=== PATIENT | female | born 1995 | race Caucasian/White ===

== ENCOUNTER 2021-09-13 07:17 | Inpatient (IN) ==
--- NOTE | 2021-09-12 14:34 | Anesthesiology Consultation ---
Date of Service September 12, 2021 Assessment & Plan (1) Encounter for pre-operative examination: - COVID screening: Per senior software architect on 09/12/2021: Travel screen negative, no known COVID-19 positive contacts or current COVID-19 related symptoms in past 2 weeks. Surgeon arranging preop COVID testing, scheduled 09/11/2021 [facility] waiting results. Will attempt to obtain 08/06/2021 positive COVID test for records. Chart Review Chart Review: order entry administrator initiated History Surgery Operation Date: 09/13/21 09:10 Proposed Procedures p Section in LD - Lary Gudino MD, PhD Height/Weight Height: 5 ft 2 in Weight: 69.4 kg Allergies Allergy/AdvReac Type Severity Reaction Status Date / Time No Known Allergies Allergy Verified 09/12/21 10:31 Medications Home Medications Medication Instructions Recorded Confirmed Last Taken iron,carbonyl 65 mg-vitamin C 125 1 tab PO HS 09/12/21 09/12/21 Unknown mg tablet,delayed release (Vitron-C) vits no.124-ferrous fum 1 tab PO HS 09/12/21 09/12/21 Unknown 27 mg iron-folic acid 800 mcg tablet ( Vitamin) Past Medical History Medical History (Updated 09/12/21 @ 14:33 by Mey Shell PA-C) Depression History of COVID-19 08/06/2021 @ [facility] in [place]--sinus congestion/fatigue--no issues now Scoliosis Past Family History Family History Other No family history of adverse response to anesthesia Past Surgical History Surgical History History of ear surgery reconstruction done on both ears History of ear surgery left on eardrum History of placement of ear tubes x2 History of tonsillectomy and adenoidectomy History of wisdom tooth extraction Social History Smoking Status: Never smoker Do You Dip or Chew Tobacco: No Alcohol Intake Frequency Comment: prior to drank only on special occasions Hx Substance Use: No substance use type: does not use Testing Laboratory Results 09/11/2021 [facility] WBC: 8.49 H/H: 12.8/37.6 PLATELETS: 163 ABO B Rh positive RBC Ab screen negative
[~2021-09-13 07:17] MED LIST: ceFAZolin 2000MG 2,000 MG/15 ML SYR IV SCH
[2021-09-13] MEDS ORDERED: LACTATED RINGER'S 1,000 ML IV SCH ×2 (08:00→10:45)
[2021-09-13 08:10] LABS: Hematocrit (blood only) 37.8 % (37-47); Mean Corpuscular Hemoglobin 33.9 pg (25-34); Mean Corpuscular Hgb Conc 34.4 g/dL (32-36); Mean Corpuscular Volume 98.4 fL (80-100); Mean Platelet Volume 10.3 fL (7.4-10.4); Platelet Count 178 K/uL (130-400); RDW Coefficient of Variation 13.6 % (11.5-14.5); RDW Standard Deviation 48.7 fL (36.4-46.3); Red Blood Count 3.84 M/uL (4.2-5.4); White Blood Count 9.66 K/uL (4.8-10.8)
[2021-09-13] MEDS ORDERED: HYDROmorphone INJ 0.5 MG/0.5 ML SYR IV PRN (09:04)
[2021-09-13] MEDS ORDERED: LACTATED RINGER'S 500 ML IV PRN (09:04)
[2021-09-13] MEDS ORDERED: NALOXONE HCL 0.4 MG/1 ML VIAL/CARP IV PRN (09:04)
[2021-09-13] MEDS ORDERED: diphenhydrAMINE 50 MG/ML VIAL IV PRN (09:04)
[2021-09-13] MEDS ORDERED: ePHEDrine sulfate 50 MG/ML AMP IV PRN (09:04)
[2021-09-13] MEDS ORDERED: NALOXONE HCL 0.08 MG in SYRINGE 1.8 ML IV PRN (09:04)
[2021-09-13] MEDS ORDERED: NALBUPHINE HCL INJ 10 MG/ML AMP IV PRN (09:04)
[2021-09-13] MEDS ORDERED: ONDANSETRON INJ 2 MG/ML 2 ML VIAL IV PRN (09:04)
[2021-09-13] MEDS ORDERED: MoRPHine SULFATE PF 1 MG/ML 10 ML AMP/VIAL INT SPINAL ONE (09:04)
[2021-09-13] MEDS ORDERED: NALOXONE HCL 1 MG in SODIUM CHLORIDE 0.9% 1000ML 1,000 ML IV PRN (09:04)
--- NOTE | 2021-09-13 09:07 | History & Physical Bridge Note ---
Date of Service September 13, 2021 History & Physical Bridge Note I have examined the patient, reviewed the History & Physical and in the interval since the performance of the History & Physical I have noted the following changes of clinical significance: no changes noted FHT: cat 1 US:footling breech Proceed with 1LTCS
[2021-09-13] MEDS ORDERED: DC INTRASPINAL MORPHINE SCH (09:15)
[2021-09-13] MEDS ORDERED: SODIUM CHLORIDE 0.9% 1000ML 1,000 ML IV SCH (09:15)
[2021-09-13] MEDS ORDERED: NO NARCOTICS OR SEDATIVES SCH (09:15)
[2021-09-13] MEDS ORDERED: CITRIC ACID/SODIUM CITRATE 15 ML UDC ONE (09:19)
[2021-09-13] MEDS ORDERED: AMMONIA, AROMATIC INHAL 1 EA AMP INH ONE (09:19)
[2021-09-13] MEDS ORDERED: MoRPHine SULFATE PF 1 MG/ML 10 ML AMP/VIAL ONE (09:21)
[2021-09-13] MEDS ORDERED: fentaNYL citrate 100 MCG/2 ML VIAL ONE (09:21)
--- NOTE | 2021-09-13 09:35 | Discharge Summary ---
Date of Service September 13, 2021 Admission HPI Per Admitting Provider 26 year old at 39 3/7 Breech presentation Antepartum anemia History of depression Admission Exam (Per Admitting) Constitutional WD/WN, vitals as above Respiratory normal respiratory effort, lungs clear to auscultation Cardiovascular RRR, no murmur, no edema Gastrointestinal (Abdomen) normal bowel sounds, soft, nontender, no hepatosplenomegaly Discharge Data Consultations 09/13/21 07:47 Consult Anesthesiology Stat Procedures Performed Operation Date: 09/13/21 09:10 <No data on this case meets the specified criteria> Hospital Course (1) Postop check: Countine routine PP care Anticipate d/c home later today or tomorrow
[2021-09-13] MEDS ORDERED: ONDANSETRON INJ 2 MG/ML 2 ML VIAL ONE (09:51)
[2021-09-13] MEDS ORDERED: OXYTOCIN 10 UNITS/ML 10ML VIAL ONE ×2 (10:04→10:19)
[2021-09-13] MEDS ORDERED: PHENYLEPHRINE 100MCG/ML 5ML SYR ONE (10:07)
[2021-09-13] MEDS ORDERED: BENZOCAINE 20% AER SPR 82.5 GM CAN EXT PRN (10:41)
[2021-09-13] MEDS ORDERED: SUPERCREAM 0.870% 15 GM JAR EXT PRN (10:41)
[2021-09-13] MEDS ORDERED: SENNA 8.6 MG TAB PO PRN (10:41)
[2021-09-13] MEDS ORDERED: HYDROCORTISONE ACETATE 25 MG SUPP PR PRN (10:41)
[2021-09-13] MEDS ORDERED: MAGNESIUM HYDROXIDE SUSP 30 ML UDC PO PRN (10:41)
[2021-09-13] MEDS ORDERED: DIPHTHERIA/TETANUS/PERTUSSIS 0.5 ML SYR/VIAL IM ONE (10:41)
--- NOTE | 2021-09-13 10:41 | Post Operative Brief Note ---
Immediate Post Op Note v1 Date of Surgery September 13, 2021 Pre & Post Diagnosis Operation Date: 09/13/21 09:10 Pre-Op Diagnosis: Breech Presentation Post-Op Diagnosis: Same as above. I identified the patient and participated in the time-out.: Yes Procedure Operation Date: 09/13/21 09:10 Actual Procedures p Section in LD delivery of live male child at 1016, lower uterine transverse incision(Bilateral) - Lary Gudino MD, PhD Surgeon Lary Gudino MD, PhD Chief Payroll Clerk Caridad Harmon MD Estimated Blood Loss 700 Findings Consistent with Post-Op Diagnosis Liveborn male at 1016, breech. Normal uterus, Fallopian tubes and ovaries Fluids 1000mls Drains Sen Catheter (draining clear yellow urine during surgery) Complications None Disposition Accompanied Patient To Recovery: Yes
--- NOTE | 2021-09-13 11:14 | Operative Report ---
Post Operative Report Pre & Post Diagnosis Operation Date: 09/13/21 09:10 Pre-Op Diagnosis: 1. 26 year old at 39 3/7 week 2. Breech presentation 3. Antepartum anemia 4. History of depression Post-Op Diagnosis: Same as above. 5. Moderate meconium I identified the patient and participated in the time-out.: Yes Procedure Operation Date: 09/13/21 09:10 Actual Procedures p Section in LD delivery of live male child at 1016, lower uterine transverse incision(Bilateral) - Lary Gudino MD, PhD Surgeon Lary Gudino MD, PhD Spray Foam Installer Caridad Harmon MD Estimated Blood Loss 700 Findings Consistent with Post-Op Diagnosis Liveborn male in footling breech presentation delivered at 10:16 AM, with Apgars 8/9. Weight 333 3 g or 7 pounds 6 ounces. Intact placenta with three-vessel cord. Cord pH not obtained. Normal-appearing uterus, normal-appearing bilateral fallopian tubes and ovaries seen at time of surgery Fluids 1000 mls Specimens Placenta sent to pathology for hold Drains Sen catheter Anesthesia Type Spinal Complications none Disposition Accompanied Patient To Recovery: Yes Indications Breech presentation at term Description of Procedure Delivery Note History synopsis: Patient is a 26-year-old at 39 weeks and 3 days who presented to labor and delivery for a at term for breech presentation. Upon presentation she denies contractions, leaking of fluid or vaginal bleeding. Notes good movement. Denies headache, blurry vision, right upper quadrant epigastric pain. Otherwise feeling well. Repeat ultrasound on labor and delivery which showed fetus in footling breech presentation Procedure Summary: section was recommended. Risks, benefits and alternatives were discussed including but not limited to infection, bleeding that may require blood products or hysterectomy for life saving measures, injury to surrounding organs including but not limited to bowel, bladder, ureters, tubes and ovaries and/or the baby. Should injury occur it could require longer/additional surgery to repair. Patient was also counselled about risk of DVT/PE, and injury to infant during delivery. The patient stated understanding and desired to proceed. All questions were answered posed by patient. Prior to being taken to the OR, 2 grams of cefazolin IV was administered. The patient was taken to the operating room where regional anesthesia was found to be adequate. She was then prepared and draped in the usual sterile fashion in the dorsal supine position with a leftward tilt displacing the uterus. Sen was draining to gravity. SCDs were on bilateral lower extremities. A pfannenstiel skin incision was then made with the scalpel and carried through to the underlying layer of fascia. The fascia was incised in the midline and the incision extended laterally with the Marcelino scissors. The superior aspect of the facial incision was then grasped with the Irish clamps, elevated and the underlying rectus muscles dissected off bluntly. Attention was then turned to the inferior aspect of this incision which in a similar fashion was grasped, elevated with the Irish clamps and the rectus muscle dissected off bluntly. The rectus muscles were in the midline. The peritoneum identified, grasped with the pick-ups and entered sharply with the Metzenbaum scissors. The peritoneal incision was then extended superiorly and inferiorly with good visualization of the bladder. The bladder blade was inserted and the vesicouterine peritoneum was identified, grasped with the pick-ups, and entered sharply with Metzenbaum scissors. This incision was then extended laterally and the bladder flap created digitally and the bladder blade was reinserted. The lower uterine segment was identified and incised in a transverse fashion with the scalpel. The uterine incision was then extended bluntly laterally. A rtificial rupture of membranes demonstrated moderate meconium. The bladder blade was removed. The fetus was in breech presentation. extremities were located within the uterine cavity. The feet were extracted and the blue towel was wrapped around the legs and in a corkscrew fashion the sacrum was then delivered. Once the sacrum was delivered the body was delivered in systematic fashion and then each shoulder was delivered in a systematic fashion. In a Mauriceau-Smellie maneuver, the fingers were placed onto the infant's frenulum and the baby's head was gently removed from the uterine cavity with both mild fundal pressure and Mauriceau maneuver. The 's mouth and nose were bulb suctioned. The umbilical cord was clamped times two and cut. The infant was handed off to the awaiting pediatric staff. A male infant was delivered weighing 3333g with APGARS of 8 at 1 minute and 9 at 5 minutes. The infant was taken to the recovery room for transition. Cord blood gases were obtained. The placenta was removed with gentle traction. 30 units of oxytocin were added to IVF and allowed to run freely. The uterus was exteriorized and cleared of all clots and debris. The uterine incision was inspected and found to be without any extensions and was repaired with 0 Vicryl in a running, locked fashion. A second imbricating layer was performed. Upon inspection, the repaired hysterotomy was found to be hemostatic. The uterus was firm and returned to the abdomen. The gutters were cleared of all clots and debris. The peritoneum was grasped and closed with 2-0 Vicryl in a running fas hion. The fascia was reapproximated with 0 Vicryl in a running fashion. The subcutaneous layer was reapproximated with 2-0 Vicryl in interrupted fashion. The skin was closed in a subcuticular fashion with 4-0 Vicryl. Incision was covered with Dermabond. The patient tolerated the procedure well. Sponge, lap and needle counts were correct x4. The patient was taken to the recovery room in stable condition. I attest to the content of the Intraoperative Record and any orders documented therein. Any exceptions are noted below.
--- NOTE | 2021-09-13 11:29 | Anesthesiology Progress Note ---
Date of Service September 13, 2021 Anesthesia Post Procedure Vital Signs Vital Signs: Temp Pulse Resp BP Pulse Ox 09/13/21 11:25 74 96 09/13/21 11:20 75 97 09/13/21 11:19 18 09/13/21 11:15 78 96 09/13/21 11:13 68 176/69 H 09/13/21 11:10 81 96 09/13/21 11:09 36.5 C 18 09/13/21 11:05 82 96 09/13/21 11:04 73 104/55 L 09/13/21 11:00 75 98 09/13/21 10:59 16 09/13/21 10:55 85 96 09/13/21 10:50 66 95 09/13/21 10:49 71 108/60 09/13/21 09:38 109 H 96 09/13/21 09:33 74 95 09/13/21 09:28 89 96 09/13/21 09:23 80 96 09/13/21 09:18 93 H 97 09/13/21 09:13 91 H 98 09/13/21 09:08 96 H 98 09/13/21 08:17 36.8 C 18 09/13/21 08:11 71 110/64 Transfer of Care Handoff Completed per policy Notes Mental Status: alert / awake / arousable Patient Amnestic to Procedure: Yes Nausea / Vomiting: adequately controlled Pain: adequately controlled Airway Patency, RR, SpO2: stable & adequate BP & HR: stable & adequate Hydration State: stable & adequate Neuraxial Anesthesia: was administered and sensory block is resolving Anesthetic Complications: no major complications apparent and Pt Satisfied with anesthetic care
[2021-09-13] MEDS ORDERED: OXYTOCIN 20 UNITS in LACTATED RINGER'S 1,000 ML IV SCH (14:00)
[2021-09-13] MEDS: KETOROLAC 30 MG/ML VIAL IV PRN ×2 (15:06→20:34)
[2021-09-13] MEDS: SIMETHICONE 80 MG CHEW PO SCH ×3 (17:00→21:00)
[2021-09-13] MEDS: DOCUSATE SODIUM 100 MG CAP PO SCH (20:25)
[2021-09-14] MEDS ORDERED: diphenhydrAMINE 50 MG/ML VIAL IV PRN (03:07)
[2021-09-14] MEDS ORDERED: ONDANSETRON INJ 2 MG/ML 2 ML VIAL IV PRN (03:07)
[2021-09-14] MEDS ORDERED: PROMETHAZINE HCL 25 MG in SODIUM CHLORIDE 0.9% 50 ML IV PRN (03:07)
[2021-09-14] MEDS ORDERED: KETOROLAC 30 MG/ML VIAL IV PRN (03:07)
[2021-09-14] MEDS ORDERED: diphenhydrAMINE Capsule 25 MG CAP PO PRN (03:07)
[2021-09-14] MEDS: oxyCODONE/ACETAMINOPHEN 5mg/325mg TAB PO PRN ×5 (03:49→22:56)
[2021-09-14] MEDS: IBUPROFEN 600 MG TAB PO PRN ×5 (03:49→22:56)
[2021-09-14 06:59] LABS: Basophils # (auto) 0.02 K/uL (0-0.2); Basophils % (auto) 0.2 %; Eosinophils # (auto) 0.07 K/uL (0-0.5); Eosinophils % (auto) 0.7 %; Hematocrit (blood only) 34.7 % (37-47); Hemoglobin 11.7 g/dL (12.0-16.0); Immature Granulocytes # (auto) 0.01 K/uL (0.00-0.02); Immature Granulocytes % (auto) 0.1 %; Lymphocytes # (auto) 1.23 K/uL (1.2-3.4); Lymphocytes % (auto) 11.6 %; Mean Corpuscular Hemoglobin 33.3 pg (25-34); Mean Corpuscular Hgb Conc 33.7 g/dL (32-36); Mean Corpuscular Volume 98.9 fL (80-100); Monocytes # (auto) 0.82 K/uL (0.11-0.59); Monocytes % (auto) 7.7 %; Neutrophils # (auto) 8.44 K/uL (1.4-6.5); Neutrophils % (auto) 79.7 %; Platelet Count 162 K/uL (130-400); RDW Coefficient of Variation 13.7 % (11.5-14.5); RDW Standard Deviation 48.6 fL (36.4-46.3); Red Blood Count 3.51 M/uL (4.2-5.4); White Blood Count 10.59 K/uL (4.8-10.8)
[2021-09-14] MEDS: FERROUS SULFATE 325 MG TAB PO SCH (08:07)
[2021-09-14] MEDS: SIMETHICONE 80 MG CHEW PO SCH ×4 (08:07→22:56)
[2021-09-14] MEDS: DOCUSATE SODIUM 100 MG CAP PO SCH ×2 (08:07→22:56)
[2021-09-14] MEDS: PRENATAL VITAMIN 1 TAB PO SCH (08:07)
--- NOTE | 2021-09-14 09:53 | Obstetrical Progress Note ---
Date of Service September 14, 2021 Subjective Ambulation: ambulating normally Voiding: no voiding problems Passing Gas:: Yes Diet Tolerance:: regular diet Feeding Type:: breast feeding Current Pain Level(1-10): 0 doing well Physical Exam Constitutional WD/WN, vitals as above comfortable abdomen soft and non-tender incision c/d/i no edema neg Wesley's tent d/c in AM if stable Results & Data ([facility]) Vital Signs (Past 12 Hours) Vital Signs Temp Pulse Resp BP Pulse Ox 09/14/21 07:14 36.5 C 61 16 93/54 L 97 09/14/21 04:00 36.7 C 69 16 98/57 L 98 09/14/21 03:00 16 98 09/14/21 02:00 16 95 09/14/21 00:00 36.7 C 64 16 98/57 L 98 09/13/21 23:00 16 98 09/13/21 22:00 16 98 Laboratory Results 09/13/21 09/13/21 09/14/21 07:22 07:26 06:25 WBC 9.66 10.59 RBC 3.84 L 3.51 L Hgb 13.0 11.7 L Hct 37.8 34.7 L MCV 98.4 98.9 MCH 33.9 33.3 MCHC 34.4 33.7 RDW Std Deviation 48.7 H 48.6 H RDW Coeff of Jil 13.6 13.7 Plt Count 178 162 MPV 10.3 10.0 Immature Gran % (Auto) 0.1 Neut % (Auto) 79.7 Lymph % (Auto) 11.6 [place] % (Auto) 7.7 Eos % (Auto) 0.7 Baso % (Auto) 0.2 Neut # (Auto) 8.44 H Lymph # (Auto) 1.23 [place] # (Auto) 0.82 H Eos # (Auto) 0.07 Baso # (Auto) 0.02 Immature Gran # (Auto) 0.01 Blood Type B Positive Antibody Screen NEGATIVE
[2021-09-14] MEDS ORDERED: bisacodyL 5 MG TABEC PO SCH (20:00)
[2021-09-15 00:24] VITALS: O2SAT 98
--- NOTE | 2021-09-15 07:13 | Obstetrical Progress Note ---
Date of Service September 15, 2021 Assessment & Plan (1) Postop check: Countine routine PP care Anticipate d/c home later today or tomorrow Subjective Ambulation: ambulating normally Voiding: no voiding problems Passing Gas:: Yes Diet Tolerance:: regular diet Lochia:: Moderate Feeding Type:: breast feeding Current Pain Level(1-10): 5 Would like to go home later today or tomorrow depending on how she does today Physical Exam Constitutional WD/WN, vitals as above Respiratory normal respiratory effort, lungs clear to auscultation Cardiovascular RRR, no murmur, no edema Gastrointestinal (Abdomen) normal bowel sounds, soft, nontender, no hepatosplenomegaly incision clean dry intact and healing well Results & Data ([facility]) Vital Signs (Past 12 Hours) Vital Signs Temp Pulse Resp BP Pulse Ox 09/15/21 00:00 36.6 C 78 16 115/78 98 09/14/21 20:00 36.7 C 77 16 97/59 L 96
[2021-09-15] MEDS: oxyCODONE/ACETAMINOPHEN 5mg/325mg TAB PO PRN ×3 (07:25→16:54)
[2021-09-15] MEDS: IBUPROFEN 600 MG TAB PO PRN ×3 (07:25→16:54)
[2021-09-15 07:33] LABS: Hematocrit (blood only) 35.2 % (37-47); Hemoglobin 11.4 g/dL (12.0-16.0)
[2021-09-15 08:06] VITALS: BP 115/75; PULSE 73; TEMP 98.2
[2021-09-15] MEDS: PRENATAL VITAMIN 1 TAB PO SCH (08:15)
[2021-09-15] MEDS: DOCUSATE SODIUM 100 MG CAP PO SCH (08:15)
[2021-09-15] MEDS: FERROUS SULFATE 325 MG TAB PO SCH (08:15)
[2021-09-15] MEDS: SIMETHICONE 80 MG CHEW PO SCH ×3 (08:15→16:57)
[2021-09-15] MEDS ORDERED: bisacodyL 10 MG SUPP PR PRN (10:41)
== END 2021-09-15 18:36 | disposition home or self-care (01) | DRG 788 ==
LOC: 4S1 07:17 → EDSTATUS 09:10 → 4S2 14:00

== ENCOUNTER 2023-09-04 07:46 | Inpatient (IN) ==
--- OUTSIDE RECORDS SUMMARY | 2023-09-04 08:06 | External Medical Summary | Summary of Care ---
Author Name Unknown Organization [facility] Address [address] [place] [address] Phone [phone] Care Team Providers Care Core Stacker Name Role Phone Unavailable Primary Care Provider Unavailabl e Reason for Visit * Reason Comments Healthy Beginnings Return Encounter Details Date Type Department Care Team ([facility] st Contact Info) Description 09/03/2023 9:00 AM EST Office Visit Gynecology/Obstetric s Heydi Oliveira [address] [place] [id number] Yessenia Hager CRNP [address] [place] [phone] Encounter for supervision of other normal in third trimester*; Depression complicating , antepartum; Previous delivery affecting ; Positive serological reaction for syphilis; Polyhydramnios in third trimester complication, single or unspecified fetus; Maternal care for unstable lie, single or unspecified fetus Allergies Active Allergy Reactions Criticality Noted Date Comments Escitalopram Oxalate 07/20/2019 Mood swings, decreased appetite, lethargy documented as of this encounter (statuses as of 09/03/2023) Medications Medication Sig Dispensed Refills Start Date End Date Status 27-0.8 MG Oral Tablet Take by mouth. 0 Active documented as of this encounter (statuses as of 09/03/2023) Active Problems Problem Noted Date Diagnosed Date Maternal care for unstable lie 08/28/2023 Overview: Breech->transverse->vertex Will need US at start of induction and prior to AROM presentation, breech 08/15/2023 Polyhydramnios in third trimester 08/15/2023 Health counseling 02/13/2023 Overview: Problem Action Taken Date entered Entered by Date resolved Need for food assistance referred to [facility] and local food alaniz 02/13/2023 Lupe Epstein RN 02/13/2023 Problem Action Taken Date entered Entered by Date resolved 1st trimester education Given 02/13/2023 Lupe Epstein RN 02/13/2023 Problem Action Taken Date entered Entered by Date resolved Current needs or questions Patient denies having any current needs or questions 04/26/2023 Lupe Epstein RN 04/26/2023 Problem Action Taken Date entered Entered by Date resolved Current needs or questions Patient denies having any current needs or questions 05/28/2023 Lupe Epstein RN 05/28/2023 Problem Action Taken Date entered Entered by Date resolved Current needs or questions Patient denies having any current needs or questions 06/18/2023 Leeanne Holt RN 06/18/2023 Problem Action Taken Date entered Entered by Date resolved Current needs or questions Patient denies having any current needs or questions 07/16/2023 Lupe Epstein RN 07/16/2023 Problem Action Taken Date entered Entered by Date resolved Current needs or questions Patient denies having any current needs or questions 08/20/2023 Leeanne Holt RN 08/20/2023 Problem Action Taken Date entered Entered by Date resolved Current needs or questions Patient denies having any current needs or questions 09/03/2023 Lupe Epstein RN 09/03/2023 Last Assessment & Plan: Problem Action Taken Date entered Entered by Date resolved Current needs or questions Patient denies having any current needs or questions 07/02/2023 Leeanne Holt RN 07/02/2023 Positive serological reaction for syphilis 01/17 Overview: Neg confirmatory testing Supervision of normal 01/16/2023 Depression complicating , antepartum Overview: No meds at NOB Previous delivery affecting 0 01/16/2023 Overview: For breech; desires TOLAC Anxiety 07/24/2022 Concentration deficit 07/24/2022 Iron deficiency anemia 07/24/2022 Estimated Date of Delivery Comme nts Yes 09/10/2023 Based on Ultraso und documented as of this encounter (statuses as of 09/03/2023) Resolved Problems Problem Noted Date Diagnosed Date Resolved Date Malpresentation of fetus 09/11/2021 Antepartum anemia complicating 06/29/2021 07/24/2022 Overview: Cbc: 11.7 at 28 weeks, start Vitron C Supervision of normal first 02/15/2021 09/22/2021 Current mild episode of anca r depressive disorder without prior episode 07/30/2018 Status post tympanoplasty 12/20/2017 documented as of this encounter (statuses as of 09/03/2023) Immunizations Name Administration Dates Next Due DTaP Dipth/Tet/Acell Pertussis (Infanrix), Peds 01/22/2002,08/12/1998,1997,05/20,1997 HIB PRP-T, 4 dose (ActHib) 01/13/1998,,1997,03/11 HPV Vaccine, 4-Valent 12/29/2008,08/26/2008,04/2008 Hepatitis B, 0-19 yrs 1997,1997,11/1996 IPV - Polio Virus Vaccine (Inact) 2001,01/13/1998,1997,03/11 MMR - Measles/Mumps/Rubella Vaccine 01/22/2002,0 01/13/1998 Meningococcal Conjugate Vacc ine (Menactra/Menveo) 02/09/2015,06/16/2008 PPD 10/13/2016 Seasonal Influenza, PF, 6 M & above, IM , (FluLaval or Fluzone) 07/12/2021,05/30/2020,06/11/2019,06/16 Seasonal Influenza, Quadriva lent, No Preserve, IM 06/26/2016 Seasonal Influenza, Split, I IV3, With Preserve, Inj 07/12/2009,06/16/2008,06/17/2007,07/08,06/15/2005,07/26/2003 TDAP (age 10 and older)(Boostrix) 07/02/2023,,06/16/2018 TDAP (age 11 and older)(Adacel) 06/16/2008 Varicella Vaccine (Chicken Pox) 01/13/1998 Varicella Zoster Vaccine (Adult) 06/16/2008 documented as of this encounter Social History Tobacco Use Types Packs/Day Years Used Date Smoking Tobacco: Never Smokeless Tobacco: Never Alcohol Use Standard Drinks/Week Comments Not Currently 0 (1 standard drink = 0.6 oz pur e alcohol) social AUDIT-C Answer Date Recorded Frequency of Alcohol Consumption Monthly or less 02/24/2019 Average Number of Drinks Not on file 019 Frequency of Binge Drinking Not on file 02/07 PHQ-2 Answer Date Recorded PHQ-2 Score 5 05/30/2020 Hunger Vital Sign Answer Date Recorded Within the past 12 months, y ou worried that your food would run out before you got the money to buy more. Never true 01/17/20 23 Within the past 12 months, t he food you bought just didn't last and you didn't have money to get more. Never true 01/16/2023 [place] Depression Scale Answer Date Recorded [place] Depression Scale Total 3 07/16/2023 The thought of harming myself has occurred to me . Never 07/16/2023 Estimated Date of Delivery Comme nts Yes 09/10/2023 Based on Ultraso und Sex and Gender Information Value Date Recorded Sex Assigned at Female 12/15/2018 2:51 PM EDT Gender Identity Female 12/15/2018 2:51 PM EDT Sexual Orientation Straight 12/15/2018 2: 51 PM EDT Job Start Date Occupation Industry Not on file Not on file Not on file documented as of this encounter Last Filed Vital Signs Vital Sign Reading Time Taken Comments Blood Pressure 100/64 09/03/2023 8:57 AM EST Pulse - - Temperature - - Respiratory Rate - - Oxygen Saturation - - Inhaled Oxygen Concentration - - Weight 68 kg (150 lb) 09/03/2023 8:57 AM EST Height 157.5 cm (5' 2") 09/03/2023 8:57 AM EST Body Mass Index 27.44 09/03/2023 8:57 AM EST documented in this encounter Progress Notes * Yessenia Hager CRNP - 09/03/2023 9:21 AM EST 39w No concerns. Is scheduled for IOL tomorrow for moderate polyhydramnios. Has BPP following this appttoday. Baby is active. No contractions or bleeding. YOLANDE Christie * Lianna Vasquse LPN - 09/03/2023 9:00 AM EST 39w0d IOL . Denies concerns. documented in this encounter Nursing Notes * Lupe Epstein RN - 09/03/2023 9:30 AM EST Patient seen by [facility] [employer] Machinery Instructor. Patient denies any questions or concerns. documented in this encounter Plan of Treatment Upcoming Encounters Date Type Department Care Team (Late st Contact Info) Description 09/10/2023 9:15 AM EST Imaging Radiology [facility] [address] [facility], [address] [place] [id number] Health Maintenance Due Date Last Done Comments COVID-19 Vaccine (#1) 1997 Depression Screening 05/30/2021 05/30/2020, 02/09/2015 (Discussed) Influenza Vaccine (FLU shot) (#1) 2023 07/12/2021, 05/30/2020, 06/11/2019, Additional history exists Pap Smear 02/16/2024 02/15/2021, 1004/2018, 06/16/2018 DTaP,Tdap,and Td Vaccines (10 - Td or Tdap) 07/02/2033 07/02/2023, 06/28/2021, 06/16/2018, Additional history exists Hepatitis B Completed 1997, 11/1996, 1997 GARDASIL-HPV IMMUNIZATION SERIES Addressed 02/09/2015 (Done elsewhere), 12/29/2008, 08/26/2008, Additional history exists Overridden with the intention of not completing the topic MENINGOCOCCAL (MENACTRA/MENVEO) Completed 02/09/2015, 06/16/2008 Gonorrhea / Chlamydia Screen Discontinued 01/16/2023, 02/15/2021, 05/30/2020, Additional history exists Pneumococcal Vaccine: Pediatrics (0 to 5 Years) and At-Risk Patients (6 to 64 Years) Aged Out No longer eligible based on patient's age to complete this topic documented as of this encounter Medical Devices Not on filedocumented as of this encounter Visit Diagnoses Diagnosis Encounter for supervision of other normal in third trimester- Primary Depression complicating , antepartum Mental disorders of mother, antepartum Previous delivery affecting Previous delivery, unspecified as to episode of care or not applicable Positive serological reaction for syphilis Latent syphilis, unspecified Polyhydramnios in third trimester complication, single or unspecified fetus Maternal care for unstable lie, single or unspecified fetus documented in this encounter
--- OUTSIDE RECORDS SUMMARY | 2023-09-04 08:06 | External Medical Summary | Summary of Care ---
Author Name Unknown Organization [facility] Address [address] [place] [address] Phone [phone] Care Team Providers Care Purchasing Manager/Sales Name Role Phone Unavailable Primary Care Provider Unavailabl e Encounter Details Date Type Department Care Team (Late st Contact Info) Description 09/03/2023 Telephone Gynecology/Obstetrics [facility] [address] [place] [address] Lary Gudino MD [address] [place] [address] Allergies Active Allergy Reactions Criticality Noted Date [...] resolved Need for food assistance referred to [facility] and local food [employer] 02/13/2023 Lupe Epstein RN 02/13/2023 Problem Action [...] money to get more. Never true 01/16/2023 [place] Depression Scale Answer Date Recorded [place] Depression Scale Total 3 07/16/2023 The thought [...] on file documented as of this encounter Plan of Treatment Upcoming Encounters Date Type Department Care Team (Late st Contact Info) Description 09/10/2023 9:15 AM EST Imaging Radiology [facility] 2nd [facility], [address] [place] [id number] Health Maintenance Due Date Last Done Comments COVID-19 Vaccine (#1) 1997 Depression Screening 05/30/2021 05/30/2020, 02/09/2015 (Discussed) Influenza Vaccine (FLU shot) (#1) 2023 07/12/2021, 05/30/2020, 06/11/2019, Additional history exists Pap Smear 02/16/2024 02/15/2021, 04/2018, 06/16/2018 DTaP,Tdap,and Td Vaccines (10 - Td [...]
--- OUTSIDE RECORDS SUMMARY | 2023-09-04 08:06 | External Medical Summary | Summary of Care ---
Author Name Unknown Organization [facility] Address [address] [facility] [place] [address] Phone [phone] Care Team Providers Care Airline Reservation Agent Name Role Phone Unavailable Primary Care Provider Unavailabl e Encounter Details Date Type Department Care Team (Late st Contact Info) Description 08/28/2023 Telephone Gynecology/Obstetrics [facility] [address] [facility] [place] [address] Lary Gudino MD [address] [place] [address] Allergies Active Allergy Reactions Criticality Noted [...] resolved Need for food assistance referred to [facility] and local food [employer] 02/13/2023 Lupe Epstein [...] or questions 08/20/2023 Leeanne Holt RN 08/20/2023 Last Assessment & Plan: Problem Action Taken [...] r depressive disorder without prior episode 07/30/2018 2 Status post tympanoplasty 12/20/2017 documented as of [...] money to get more. Never true 01/16/2023 [place] Depression Scale Answer Date Recorded [place] Depression Scale Total 3 07/16/2023 The thought [...] on file documented as of this encounter Miscellaneous Notes * Telephone Encounter - Lary Gudino MD - 08/28/2023 10:54 AM EST Called patient and left VM about BPP results. Recommended IOL at 39 weeks for poly, unstable lie, TOLAC Will have nursing staff help schedule documented in this encounter Plan of Treatment Upcoming Encounters Date Type Department Care Team (Late st Contact Info) Description 09/03/2023 9:00 AM EST Office Visit Gynecology/Obstetrics Heydi Oliveira [address] [place] [address] Yessenia Hager CRNP [address] [place] [address] 09/03/2023 9:30 AM EST Imaging Radiology [facility] [address] [facility] [place] [address] 09/10/2023 9:15 AM EST Imaging Radiology [facility] 2nd Floor, [place] [address] [place] [address] Health Maintenance Due Date Last Done Comments [...]
--- OUTSIDE RECORDS SUMMARY | 2023-09-04 08:06 | External Medical Summary | Summary of Care ---
Author Name Unknown Organization [facility] Address [address] [facility] [place] [address] Phone [phone] Care Team Providers Care Child Care Associate Teacher Name Role Phone Unavailable Primary Care Provider Unavailabl e Encounter Details Date Type Department Care Team (Late st Contact Info) Description 08/16/2023 Telephone Gynecology/Obstetrics [facility] 132 [facility] [place] [address] Lary Gudino MD [address] [place] [address] Allergies Active Allergy Reactions Criticality Noted Date Comments Escitalopram Oxalate 07/20/2019 Mood swings, decreased appetite, lethargy documented as of this encounter (statuses as of 08/16/2023) Medications Medication Sig Dispensed Refills Start Date End Date Status 27-0.8 MG Oral Tablet Take by mouth. 0 Active documented as of this encounter (statuses as of 08/16/2023) Active Problems Problem Noted Date Diagnosed Date presentation, breech 08/15/2023 Polyhydramnios in third trimester 08/15/2023 Health counseling 02/13/2023 Overview: Problem Action Taken Date entered Entered by Date resolved Need for food assistance referred to [facility] and local food [employer] 02/13/2023 Lupe Epstein [...] or questions 07/16/2023 Lupe Epstein RN 07/16/2023 Last Assessment & Plan: Problem Action Taken [...] as of this encounter (statuses as of 08/16/2023) Resolved Problems Problem Noted Date Diagnosed Date Resolved Date Malpresentation of fetus 09/11/2021 Antepartum anemia complicating 06/29/2021 07/24/2022 Overview: Cbc: 11.7 at 28 weeks, start Vitron C Supervision of normal first 02/15/2021 09/22/2021 Current mild episode of anca r depressive disorder without prior episode 07/30/2018 Status post tympanoplasty 12/20/2017 documented as of this encounter (statuses as of 08/16/2023) Immunizations Name Administration Dates Next Due DTaP Dipth/Tet/Acell Pertussis (Infanrix), Peds 01/22/2002,08/12/1998,1997,05/20,1997 HIB PRP-T, 4 dose (ActHib) 01/13/1998,,1997,03/11 HPV Vaccine, 4-Valent 12/29/2008,08/26/2008,04/2008 Hepatitis B, 0-19 yrs 1997,1997,11/1996 IPV - Polio Virus Vaccine (Inact) 2001,01/13/1998,1997,03/11 MMR - Measles/Mumps/Rubella Vaccine 01/22/2002,0 01/13/1998 Meningococcal Conjugate Vacc ine (Menactra/Menveo) 02/09/2015,06/16/2008 PPD 10/13/2016 SEASONAL INFLUENZA, PF, 6 M & Above, IM , (FLULAVAL or FLUZONE) 07/12/2021,05/30/2020,06/11/2019,06/16 Seasonal Influenza, Quadriva lent, No Preserve, [...] money to get more. Never true 01/16/2023 [place] Depression Scale Answer Date Recorded [place] Depression Scale Total 3 07/16/2023 The thought [...] encounter Miscellaneous Notes * Telephone Encounter - Sarah Villanueva LPN - 08/16/2023 8:30 AM EST MyG sent with normal results * Telephone Encounter - Sarah Villanueva LPN - 08/16/2023 8:30 AM EST ----- Message from Lary Gudino MD sent at 08/16/2023 8:23 AM EST ----- Please let patient know GBS was negative Thank you ----- Message ----- From: Anay Cuellar Automated Processing Sent: 08/15/2023 8:33 PM EST To: Lary Gudino MD documented in this encounter Plan of Treatment Upcoming Encounters Date Type Department Care Team (Late st Contact Info) Description 08/20/2023 9:00 AM EST Office Visit Gynecology/Obstetrics [facility] [address] [place] [address] Yessenia Hager CRNP [address] [place] [address] 08/20/2023 9:45 AM EST Imaging Radiology [facility] [address] [place] [address] 08/28/2023 8:45 AM EST Office Visit Gynecology/Obstetrics [facility] [address] [place] [address] Saulo Cueto MD [address] [place] [address] 08/28/2023 9:15 AM EST Imaging Radiology [address] [place] [address] 09/03/2023 9:00 AM EST Office Visit Gynecology/Obstetrics [facility] [address] [place] [address] Yessenia Hager CRNP [address] [place] [address] 09/03/2023 9:30 AM EST Imaging Radiology [facility] [address] [place] [address] 09/10/2023 8:45 AM EST Office Visit Gynecology/Obstetrics [facility] [address] [place] [address] Maribel Rowley CRNP [address] [place] [address] 09/10/2023 9:15 AM EST Imaging Radiology [address] [place] [address] Health Maintenance Due Date Last Done Comments [...]
--- OUTSIDE RECORDS SUMMARY | 2023-09-04 08:06 | External Medical Summary | Summary of Care ---
Author Name Unknown Organization [facility] Address [address] [facility] [place] [address] Phone [phone] Care Team Providers Care Supervisor Commissary Production Name Role Phone Unavailable Primary Care Provider Unavailabl e Encounter Details Date Type Department Care Team (Late st Contact Info) Description 08/28/2023 Telephone Gynecology/Obstetrics [facility] 132 [facility] [place] [address] Lary Gudino MD [address] [place] [address] Allergies Active Allergy Reactions Criticality Noted Date Comments Escitalopram Oxalate 07/20/2019 Mood swings, decreased appetite, lethargy documented as of this encounter (statuses as of 08/28/2023) Medications Medication Sig Dispensed Refills Start Date End Date Status 27-0.8 MG Oral Tablet Take by mouth. 0 Active documented as of this encounter (statuses as of 08/28/2023) Active Problems Problem Noted Date Diagnosed Date presentation, breech 08/15/2023 Polyhydramnios in third trimester 08/15/2023 Health counseling 02/13/2023 Overview: Problem Action Taken Date entered Entered by Date resolved Need for food assistance referred to [facility] and local food [employer] 02/13/2023 Lupe [...] as of this encounter (statuses as of 08/28/2023) Resolved Problems Problem Noted Date Diagnosed Date Resolved Date Malpresentation of fetus 09/11/2021 Antepartum anemia complicating 06/29/2021 07/24/2022 Overview: Cbc: 11.7 at 28 weeks, start Vitron C Supervision of normal first 02/15/2021 09/22/2021 Current mild episode of anca r depressive disorder without prior episode 07/30/2018 2 Status post tympanoplasty 12/20/2017 documented as of this encounter (statuses as of 08/28/2023) Immunizations Name Administration Dates Next Due DTaP [...] money to get more. Never true 01/16/2023 [place] Depression Scale Answer Date Recorded [place] Depression Scale Total 3 07/16/2023 The thought [...] 9:00 AM EST Office Visit Gynecology/Obstetrics [facility] [address] [place] [address] Yessenia Hager CRNP [address] [place] [address] 09/03/2023 9:30 AM EST [facility] [address] [place] [address] 09/10/2023 9:15 AM EST Imaging Radiology [facility] 2nd Floor, [place] [address] [place] [address] 09/11/2023 1:30 PM EST Office Visit Gynecology/Obstetrics [facility] [address] [place] [address] Yessenia Hager CRNP [address] [place] [address] Health Maintenance Due Date Last Done Comments [...]
--- OUTSIDE RECORDS SUMMARY | 2023-09-04 08:06 | External Medical Summary | Summary of Care ---
Author Name Unknown Organization [facility] Address [address] [facility] [place] [address] Phone [phone] Care Team Providers Care Rubber Factory Worker Name Role Phone Unavailable Primary Care Provider Unavailabl e Encounter Details Date Type Department Care Team (Late st Contact Info) Description 08/16/2023 Telephone Gynecology/Obstetrics [facility] 132 [facility] [place] [address] Lary Gudino MD [address] [place] [address] Allergies Active Allergy Reactions Criticality Noted Date Comments Escitalopram Oxalate 07/20/2019 Mood swings, decreased appetite, lethargy documented as of this encounter (statuses as of 08/22/2023) Medications Medication Sig Dispensed Refills Start Date End Date Status 27-0.8 MG Oral Tablet Take by mouth. 0 Active documented as of this encounter (statuses as of 08/22/2023) Active Problems Problem Noted Date Diagnosed Date presentation, breech 08/15/2023 Polyhydramnios in third trimester 08/15/2023 Health counseling 02/13/2023 Overview: Problem Action Taken Date entered Entered by Date resolved Need for food assistance referred to [facility] and local food [employer] 02/13/2023 Lupe [...] as of this encounter (statuses as of 08/22/2023) Resolved Problems Problem Noted Date Diagnosed Date Resolved Date Malpresentation of fetus 09/11/2021 Antepartum anemia complicating 06/29/2021 07/24/2022 Overview: Cbc: 11.7 at 28 weeks, start Vitron C Supervision of normal first 02/15/2021 09/22/2021 Current mild episode of anca r depressive disorder without prior episode 07/30/2018 2 Status post tympanoplasty 12/20/2017 documented as of this encounter (statuses as of 08/22/2023) Immunizations Name Administration Dates Next Due DTaP [...] money to get more. Never true 01/16/2023 [place] Depression Scale Answer Date Recorded [place] Depression Scale Total 3 07/16/2023 The thought [...] Team (Late st Contact Info) Description 08/28/2023 8:45 AM EST Office Visit Gynecology/Obstetrics [facility] [address] [place] [address] Saulo Cueto MD [address] [place] [address] 08/28/2023 9:15 AM EST Imaging Radiology [facility] 2nd Floor, [place] [address] [place] [address] 09/03/2023 9:00 AM EST Office Visit Gynecology/Obstetrics [facility] [address] [place] [address] Yessenia Hager CRNP [address] [place] [address] 09/03/2023 9:30 AM EST Imaging Radiology [facility] [address] [place] [address] 09/10/2023 9:15 AM EST Imaging Radiology [facility] 2nd [facility] [place] [address] [place] [address] 09/11/2023 1:30 PM EST Office Visit Gynecology/Obstetrics [facility] [address] [facility] [place] [address] Yessenia Hager CRNP [address] [place] [address] Health Maintenance Due Date Last Done Comments [...]
--- OUTSIDE RECORDS SUMMARY | 2023-09-04 08:06 | External Medical Summary | Summary of Care ---
Author Name Unknown Organization [facility] Address [address] [facility] [place] [place] [address] Phone [phone] Care Team Providers Care Advertising Copywriter Name Role Phone Unavailable Primary Care Provider Unavailabl e Reason for Visit * Reason Comments Healthy Beginnings Return Encounter Details Date Type Department Care Team ([facility] st Contact Info) Description 08/20/2023 9:00 AM EST Office Visit Gynecology/Obstetric s [facility] [address] [place] [address] Yessenia Hager CRNP [address] [place] [address] Encounter for supervision of other normal in third trimester*; Depression complicating , antepartum; Previous delivery affecting ; Positive serological reaction for syphilis; Polyhydramnios in third trimester complication, single or unspecified fetus Allergies Active Allergy Reactions Criticality Noted Date Comments Escitalopram Oxalate 07/20/2019 Mood swings, decreased appetite, lethargy documented as of this encounter (statuses as of 08/20/2023) Medications Medication Sig Dispensed Refills Start Date End Date Status 27-0.8 MG Oral Tablet Take by mouth. 0 Active documented as of this encounter (statuses as of 08/20/2023) Active Problems Problem Noted Date Diagnosed Date presentation, breech 08/15/2023 Polyhydramnios in third trimester 08/15/2023 Health counseling 02/13/2023 Overview: Problem Action Taken Date entered Entered by Date resolved Need for food assistance referred to [facility] and local food [employer] 02/13/2023 Lupe Epstein RN 02/13/2023 Problem Action [...] as of this encounter (statuses as of 08/20/2023) Resolved Problems Problem Noted Date Diagnosed Date Resolved Date Malpresentation of fetus 09/11/2021 Antepartum anemia complicating 06/29/2021 07/24/2022 Overview: Cbc: 11.7 at 28 weeks, start Vitron C Supervision of normal first 02/15/2021 09/22/2021 Current mild episode of anca r depressive disorder without prior episode 07/30/2018 Status post tympanoplasty 12/20/2017 documented as of this encounter (statuses as of 08/20/2023) Immunizations Name Administration Dates Next Due DTaP [...] money to get more. Never true 01/16/2023 [place] Depression Scale Answer Date Recorded [place] Depression Scale Total 3 07/16/2023 The thought [...] Sign Reading Time Taken Comments Blood Pressure 120/72 08/20/2023 8:52 AM EST Pulse - - Temperature - - Respiratory Rate - - Oxygen Saturation - - Inhaled Oxygen Concentration - - Weight 71.7 kg (158 lb) 08/20/2023 8:52 AM EST Height 157.5 cm (5' 2") 08/20/2023 8:52 AM EST Body Mass Index 28.9 08/20/2023 8:52 AM EST documented in this encounter Progress Notes * Yessenia Hager CRNP - 08/20/2023 9:24 AM EST 37w No concerns. Baby was breech on u/s last week, she thinks he is vertex again now. Polyhydramnios, has u/s after this appt. Planning to schedule repeat c/s, though still would prefer TOLAC if vertex. Baby is active, no contractions, bleeding, or LOF. YOLANDE Christie * Lianna Vasques LPN - 08/20/2023 8:55 AM EST 37w0d Denies concerns. Has BPP after visit for moderate polyhydramnios. Is agreeable to scheduling repeat d/t breech presentation. documented in this encounter Nursing Notes * Leeanne Holt RN - 08/20/2023 9:52 AM EST Patient seen by [facility] Freight Car Inspector. documented in this encounter Plan of Treatment Upcoming Encounters Date Type Department Care Team (Late st Contact Info) Description 08/28/2023 8:45 AM EST Office Visit Gynecology/Obstetrics [facility] [address] [place] [address] Saulo Cueto MD [address] [place] [address] 08/28/2023 9:15 AM EST [facility] [address] [place] [address] 09/03/2023 9:00 AM EST Office Visit Gynecology/Obstetrics [facility] [address] [place] [address] Yessenia Hager CRNP [address] [place] [address] 09/03/2023 9:30 AM EST Imaging Radiology [facility] [address] [place] [address] 09/10/2023 9:15 AM EST Imaging Radiology [facility] 2nd [facility] [address] [place] [address] Health Maintenance Due Date Last Done Comments [...] third trimester complication, single or unspecified fetus documented in this encounter
--- OUTSIDE RECORDS SUMMARY | 2023-09-04 08:06 | External Medical Summary | Summary of Care ---
Author Name Unknown Organization [facility] Address [address] [facility] [place] [address] Phone [phone] Care Team Providers Care Subway Repair Supervisor Name Role Phone Unavailable Primary Care Provider Unavailabl e Reason for Visit * Reason Comments Healthy Beginnings Return Encounter Details Date Type Department Care Team ([facility] st Contact Info) Description 08/20/2023 9:00 AM EST Office Visit Gynecology/Obstetric s Heydi Oliveira [address] [place] [address] Yessenia Hager CRNP [address] [place] [address] Encounter for supervision of other normal in third trimester*; Depression complicating , antepartum; Previous delivery affecting ; Positive serological reaction for syphilis; Polyhydramnios in third trimester complication, single or unspecified fetus; Polyhydramnios affecting Allergies Active Allergy Reactions Criticality Noted Date [...] resolved Need for food assistance referred to [facility] and [employer] 02/13/2023 Lupe Epstein RN 02/13/2023 Problem Action [...] money to get more. Never true 01/16/2023 [place] Depression Scale Answer Date Recorded [place] Depression Scale Total 3 07/16/2023 The thought [...] no contractions, bleeding, or LOF. YOLANDE Christie Addendum: BPP done, 02/14- no breathing. NST completed. ASSESSMENT assessment with Non-stress Test completed on 08/20/2023 at 37weeks gestation for indication of 6/8 BPP, no breathing heart baseline: 140 bpm Variability: Moderate Decelerations: absent Accelerations: present Contractions: None NST start time: 1022 NST stop time: 1058 NST strip reviewed, interpreted, and approved by OB provider, YOLANDE Christie . NST strip stored in clinic storage file * Lianna Vasques LPN - 08/20/2023 8:55 AM EST 37w0d Denies concerns. Has BPP after visit for moderate polyhydramnios. Is agreeable to scheduling repeat d/t breech presentation. documented in this encounter Nursing Notes * Leeanne Holt RN - 08/20/2023 9:52 AM EST Patient seen by [facility] Failure Analysis Technician. documented in this encounter Plan of Treatment Upcoming Encounters Date Type Department Care Team (Late st Contact Info) Description 08/28/2023 8:45 AM EST Office Visit Gynecology/Obstetrics [facility] [address] [place] [address] Saulo Cueto MD [address] [place] [address] 08/28/2023 9:15 AM EST Imaging Radiology [address] [place] [address] 09/03/2023 9:00 AM EST Office Visit Gynecology/Obstetrics [facility] [address] [place] [address] Yessenia Hager CRNP [address] [place] [address] 09/03/2023 9:30 AM EST Imaging Radiology [facility] [address] [place] [address] 09/10/2023 9:15 AM EST Imaging Radiology [address] [place] [address] 09/11/2023 1:30 PM EST Office Visit Gynecology/Obstetrics [facility] [address] [place] [address] Yessenia Hager CRNP [address] [place], [place] [address] Health Maintenance Due Date Last Done Comments [...]
--- OUTSIDE RECORDS SUMMARY | 2023-09-04 08:06 | External Medical Summary | Summary of Care ---
Author Name Unknown Organization [facility] Address [address] [place] [address] Phone [phone] Care Team Providers Care Assistant Professor Of Radiology Name Role Phone Unavailable Primary Care Provider Unavailabl e Reason for Visit * Reason Onset Date Comments Order Request 08/19/2023 BPP ultrasound Encounter Details Date Type Department Care Team (Late st Contact Info) Description 08/19/2023 Telephone Gynecology/Obstetrics [facility] [address] [place] [address] Lary Gudino MD [address] [place] [address] Order Request (BPP ultrasound) Allergies Active Allergy Reactions Criticality Noted Date Comments Escitalopram Oxalate 07/20/2019 Mood swings, decreased appetite, lethargy documented as of this encounter (statuses as of 08/19/2023) Medications Medication Sig Dispensed Refills Start Date End Date Status 27-0.8 MG Oral Tablet Take by mouth. 0 Active documented as of this encounter (statuses as of 08/19/2023) Active Problems Problem Noted Date Diagnosed Date presentation, breech 08/15/2023 Polyhydramnios in third trimester 08/15/2023 Health counseling 02/13/2023 Overview: Problem Action Taken Date entered Entered by Date resolved Need for food assistance referred to [facility] and local food alaniz 02/13/2023 Nicola Carias RN 02/13/2023 Problem Action Taken Date entered Entered by Date resolved 1st trimester education Given 02/13/2023 Nicola Carias RN 02/13/2023 Problem Action Taken Date entered Entered by Date resolved Current needs or questions Patient denies having any current needs or questions 04/26/2023 Nicola Carias RN 04/26/2023 Problem Action Taken Date entered Entered by Date resolved Current needs or questions Patient denies having any current needs or questions 05/28/2023 Nicola Carias RN 05/28/2023 Problem Action Taken Date entered Entered by Date resolved Current needs or questions Patient denies having any current needs or questions 06/18/2023 Leeanne Holt RN 06/18/2023 Problem Action Taken Date entered Entered by Date resolved Current needs or questions Patient denies having any current needs or questions 07/16/2023 Nicola Carias RN 07/16/2023 Last Assessment & Plan: Problem [...] as of this encounter (statuses as of 08/19/2023) Resolved Problems Problem Noted Date Diagnosed Date Resolved Date Malpresentation of fetus 09/11/2021 Antepartum anemia complicating 06/29/2021 07/24/2022 Overview: Cbc: 11.7 at 28 weeks, start Vitron C Supervision of normal first 02/15/2021 09/22/2021 Current mild episode of anca r depressive disorder without prior episode 07/30/2018 2 Status post tympanoplasty 12/20/2017 documented as of this encounter (statuses as of 08/19/2023) Immunizations Name Administration Dates Next Due DTaP [...] money to get more. Never true 01/16/2023 [place] Depression Scale Answer Date Recorded [place] Depression Scale Total 3 07/16/2023 The thought [...] as of this encounter Miscellaneous Notes * Addendum Note - Lary Gudino MD - 08/19/2023 12:45 PM ESTAddended by: LARY GUDINO on: 08/19/2023 12:45 PM Modules accepted: Orders * Addendum Note - Nicola Carias RN - 08/19/2023 9:47 AM ESTAddended by: NICOLA CARIAS on: 08/19/2023 09:47 AM Modules accepted: Orders * Telephone Encounter - Nicola Carias RN - 08/19/2023 9:[address] US orders for BPP * Telephone Encounter - Kristin Vallejo OSA - 08/19/2023 9:41 AM EST Colleen needs orders placed for her upcoming BPP ultrasounds. She has 4 scheduled at this time with her first one being tomorrow, 08/20/23. Thank you documented in this encounter Plan of Treatment Upcoming Encounters Date Type Department Care Team (Late st Contact Info) Description 08/20/2023 9:00 AM EST Office Visit Gynecology/Obstetrics [facility] [address] [place] [address] Yessenia Hager CRNP [address] [place] [address] 08/20/2023 9:45 AM EST Imaging Radiology [facility] [address] [place] [address] 08/28/2023 8:45 AM EST Office Visit Gynecology/Obstetrics [facility] [address] [place] [address] Sauol Cueto MD [address] [place] [address] 08/28/2023 9:15 AM EST Imaging Radiology [facility] 2nd Floor, [place] [address] [place] [address] 09/03/2023 9:00 AM EST Office Visit Gynecology/Obstetrics [facility] [address] [place] [address] Yessenia Hager CRNP [address] [place] [address] 09/03/2023 9:30 AM EST Imaging Radiology [facility] [address] [place] [address] 09/10/2023 8:45 AM EST Office Visit Gynecology/Obstetrics [facility] [address] [place] [address] [place], YOLANDE Barrera [address] [place] [address] 09/10/2023 9:15 AM EST Imaging Radiology [facility] 2nd Floor, [place] [address] [place] [address] Scheduled Orders Name Type Priority Associated Diagnoses Orde r Schedule US BPP W/O NON-STRESS TEST Medical Imaging Routine Polyhydramnios affecting in third trimester 4 Occurrences starting 08/19/2023 until 09/19/2023 Health Maintenance Due Date Last Done Comments [...] as of this encounter Visit Diagnoses Diagnosis Polyhydramnios affecting in third trimester- Primary documented in this encounter
--- OUTSIDE RECORDS SUMMARY | 2023-09-04 08:06 | External Medical Summary | Summary of Care ---
Author Name Unknown Organization [facility] Address [address] [place] [address] Phone [phone] Care Team Providers Care Tire Wrapper Name Role Phone Unavailable Primary Care Provider Unavailabl e Encounter Details Date Type Department Care Team (Late st Contact Info) Description 08/28/2023 Telephone Gynecology/Obstetrics [facility] [address] [facility] [place] [address] Lary Gudino MD [address] [place] [address] Allergies Active Allergy Reactions [...] resolved Need for food assistance referred to [facility] and local food alaniz 02/13/2023 Lupe Epstein [...] money to get more. Never true 01/16/2023 [place] Depression Scale Answer Date Recorded [place] Depression Scale Total 3 07/16/2023 The thought [...] encounter Miscellaneous Notes * Telephone Encounter - Leeanne Holt RN - 09/03/2023 8:28 AM EST Induction scheduled for tomorrow. * Telephone Encounter - Lary Gudino MD - 08/28/2023 10:54 AM EST Called patient and left VM about BPP results. Recommended IOL at 39 weeks for poly, unstable lie, TOLAC Will have nursing staff help schedule documented in this encounter Plan of Treatment Upcoming Encounters Date Type Department Care Team (Late st Contact Info) Description 09/03/2023 9:00 AM EST Office Visit Gynecology/Obstetrics [facility] [address] [place] [address] Yessenia Hager CRNP [address] [place] [address] 09/03/2023 9:30 AM EST Imaging Radiology [facility] [address] [place] [address] 09/10/2023 9:15 AM EST Imaging Radiology [facility] 2nd Floor, [place] [address] [place] [address] Health Maintenance Due Date Last Done Comments [...]
--- OUTSIDE RECORDS SUMMARY | 2023-09-04 08:06 | External Medical Summary | Summary of Care ---
Author Name Unknown Organization [facility] Address [address] [place] [address] Phone [phone] Care Team Providers Care It Support Specialist Name Role Phone Unavailable Primary Care Provider Unavailabl e Encounter Details Date Type Department Care Team (Late st Contact Info) Description 08/20/2023 Telephone Gynecology/Obstetrics [facility] [address] [place] [address] Lary Gudino MD [address] [place] [address] Allergies Active Allergy Reactions Criticality [...] [facility] and local food alaniz 02/13/2023 Lupe Epstein RN 02/13/2023 Problem Action Taken Date entered Entered by Date resolved 1st trimester education Given 02/13/2023 Lupe Epstein RN 02/13/2023 Problem Action Taken Date entered Entered by Date resolved Current needs or questions Patient denies having any current needs or questions 04/26/2023 Luep Epstein RN 04/26/2023 Problem Action Taken Date [...] to get more. Never true 01/16/2023 [place] Depression Scale Answer Date Recorded [place] Depression Scale Total 3 07/16/2023 The thought [...] Telephone Encounter - Leeanne Holt RN - 08/20/2023 2:58 PM EST Spoke with Dr. Gudino. She did not know pt was having NST. No need to repeat since NST was reactive. * Telephone Encounter - Leeanne Holt RN - 08/20/2023 2:58 PM EST ----- Message from Lary uGdino MD sent at 08/20/2023 10:49 AM EST ----- Regarding: repeat BPP Sorry I tried to call. Just saw results. Would recommend repeating BPP in 4 hours since patient is term Thanks ----- Message ----- From: Trey Naranjo In Sent: 08/20/2023 10:43 AM EST To: Lary Gudino MD documented in this encounter Plan of Treatment Upcoming Encounters Date Type Department Care Team (Late st Contact Info) Description 08/28/2023 8:45 AM EST Office Visit Gynecology/Obstetrics [facility] [address] [place] [address] Saulo Cueto MD [address] [place] [address] 08/28/2023 9:15 AM EST Imaging Radiology [address] [place] [address] 09/03/2023 9:00 AM EST Office Visit Gynecology/Obstetrics [facility] [address] [place] [address] Yessenia Hager CRNP [address] [place] [address] 09/03/2023 9:30 AM EST Imaging Radiology [facility] [address] [place] [address] 09/10/2023 9:15 AM EST Imaging Radiology [address] [place] [address] 09/11/2023 1:30 PM EST Office Visit Gynecology/Obstetrics [facility] [address] [place] [address] Yessenia Hager CRNP [address] [place] [address] Health Maintenance Due Date Last Done Comments [...]
--- OUTSIDE RECORDS SUMMARY | 2023-09-04 08:06 | External Medical Summary | Summary of Care ---
Author Name Unknown Organization [facility] Address [address] [facility] [place] [address] Phone [phone] Care Team Providers Care Liner Helper Name Role Phone Unavailable Primary Care Provider Unavailabl e Reason for Visit * Reason Comments Return Visit Encounter Details Date Type Department Care Team ([facility] st Contact Info) Description 08/28/2023 8:45 AM EST Office Visit Gynecology/Obstetric s [facility] [address] [place] [address] Saulo Cueto MD [address] [place] [address] Encounter for supervision of normal first in third trimester*; Depression complicating , antepartum; [...] resolved Need for food assistance referred to [facility] and local food alaniz 02/13/2023 [...] money to get more. Never true 01/16/2023 [place] Depression Scale Answer Date Recorded [place] Depression Scale Total 3 07/16/2023 The thought [...] Sign Reading Time Taken Comments Blood Pressure 110/62 08/28/2023 8:44 AM EST Pulse - - Temperature - - Respiratory Rate - - Oxygen Saturation - - Inhaled Oxygen Concentration - - Weight 67.1 kg (148 lb) 08/28/2023 8:44 AM EST Height 157.5 cm (5' 2") 08/28/2023 8:44 AM EST Body Mass Index 27.07 08/28/2023 8:44 AM EST documented in this encounter Progress Notes * Saulo Cueto MD - 08/28/2023 9:29 AM EST Pt doing well Sono done today shows : VT. OLIMPIA 23 Pt wishes to do TOLAC Prior c/s discussed I reviewed with the patient risks of a (even if previously successful) for uterine rupture which may lead to adverse events to include maternal +/- , hypoxia leading to brain injury or cerbral palsy, need for emergent c/s requiring hysterectomy. Possible need for transfusion. I reviewed that this could occur .5-1%.Patient is aware that after 2 c-sections it is suggested forrepeat c/section . She is aware that with each c/section the risk for uterine rupture increases. Pt states understanding and wishes to proceed with . documented in this encounter Nursing Notes * Lupe Epstein RN - 08/28/2023 9:03 AM EST Patient seen by [facility] Welding Robot Operator. Patient denies any questions or concerns. * Cecy Bridges LPN - 08/28/2023 8:39 AM EST Pt is here for pre-op for repeat c section documented in this encounter Plan of Treatment Upcoming Encounters Date Type Department Care Team (Late st Contact Info) Description 09/03/2023 9:00 AM EST Office Visit Gynecology/Obstetrics [facility] [address] [place] [address] Yessenia Hager CRNP [address] [place] [address] 09/03/2023 9:30 AM EST Imaging Radiology [facility] [address] [place] [address] 09/10/2023 9:15 AM EST Imaging Radiology [facility] 2nd [facility] [address] [place] [address] 09/11/2023 1:30 PM EST Office Visit Gynecology/Obstetrics [facility] [address] [place] [address] Yessenia Hager CRNP [address] [place] [address] Health Maintenance Due Date Last Done Comments [...] Visit Diagnoses Diagnosis Encounter for supervision of normal first in third trimester- Primary Supervision of normal first Depression complicating , antepartum Mental disorders of mother, antepartum Previous delivery affecting Previous delivery, unspecified as to episode of care or not applicable Positive serological reaction for syphilis Latent syphilis, unspecified Polyhydramnios in third trimester complication, single or unspecified fetus documented in this encounter
--- OUTSIDE RECORDS SUMMARY | 2023-09-04 08:06 | External Medical Summary | Summary of Care ---
Author Name Unknown Organization [facility] Address [address] [facility] [place] [address] Phone [phone] Care Team Providers Care Desktop Support Engineer Name Role Phone Unavailable Primary Care Provider Unavailabl e Reason for Visit * Reason Comments Healthy Beginnings Return Encounter Details Date Type Department Care Team ([facility] st Contact Info) Description 09/03/2023 9:00 AM EST Office Visit Gynecology/Obstetric s [facility] [address] [place] [address] Yessenia Hager CRNP [address] [place] [address] Encounter for supervision of other normal in [...] resolved Need for food assistance referred to [facility] and local food alaniz 02/13/2023 Lupe [...] to get more. Never true 01/16/2023 [place] Depression Scale Answer Date Recorded [place] Depression Scale Total 3 07/16/2023 The thought [...] contractions or bleeding. YOLANDE Christie * Lianna Vasques LPN - 09/03/2023 9:00 AM EST 39w0d IOL . Denies concerns. documented in this encounter Nursing Notes * Lupe Epstein RN - 09/03/2023 9:30 AM EST Patient seen by [facility] [employer]. Patient denies any questions or concerns. documented in this encounter Plan of Treatment Upcoming Encounters Date Type Department Care Team (Late st Contact Info) Description 09/10/2023 9:15 AM EST Imaging Radiology [facility] 2nd [facility], [address] [place] [address] Health Maintenance Due Date Last Done Comments [...]
--- OUTSIDE RECORDS SUMMARY | 2023-09-04 08:06 | External Medical Summary | Summary of Care ---
Author Name Unknown Organization [facility] Address [address] [place] [address] Phone [phone] Care Team Providers Care Wind Commissioning Technician Name Role Phone Unavailable Primary Care Provider Unavailabl e Reason for Visit * Reason Onset Date Comments Order Request 08/19/2023 BPP ultrasound Encounter Details Date Type Department Care Team (Late st Contact Info) Description 08/19/2023 Telephone Gynecology/Obstetrics [facility] [address] [place] [address] Lary Gudino MD [address] [place] [address] Order Request (BPP ultrasound) Allergies [...] resolved Need for food assistance referred to [facility] and local food alaniz 02/13/2023 Nicola [...] money to get more. Never true 01/16/2023 [place] Depression Scale Answer Date Recorded [place] Depression Scale Total 3 07/16/2023 The thought [...] encounter Miscellaneous Notes * Addendum Note - Nicola Carias RN [...] 08/20/2023 9:00 AM EST Office Visit Gynecology/Obstetrics [facility] [address] [place] [address] Yessenia Hager CRNP [address] [place] [address] 08/20/2023 9:45 AM EST Imaging Radiology [facility] [address] [place] [address] 08/28/2023 8:45 AM EST Office Visit Gynecology/Obstetrics [facility] [address] [place] [address] Saulo Cueto MD [address] [place] [address] 08/28/2023 9:15 AM EST Imaging Radiology [facility] 2nd [facility] [address] [place] [address] 09/03/2023 9:00 AM EST Office Visit Gynecology/Obstetrics [facility] [address] [place] [address] Yessenia Hager CRNP [address] [place] [address] 09/03/2023 9:30 AM EST Imaging Radiology [facility] [address] [place] [address] 09/10/2023 8:45 AM EST Office Visit Gynecology/Obstetrics [facility] [address] [place] [address] Maribel Rowley CRNP [address] [place] [address] 09/10/2023 9:15 AM EST Imaging Radiology [facility] [address] [place] [address] Health Maintenance Due Date Last Done Comments [...]
--- OUTSIDE RECORDS SUMMARY | 2023-09-04 08:06 | External Medical Summary | Summary of Care ---
Author Name Unknown Organization [facility] Address [address] [facility] [place] [address] Phone [phone] Care Team Providers Care Paper Testing Supervisor Name Role Phone Unavailable Primary Care Provider Unavailabl e Encounter Details Date Type Department Care Team (Late st Contact Info) Description 08/28/2023 Telephone Gynecology/Obstetrics [facility] [address] [facility] [place] [address] Lary Gudino MD [address] [place] [address] Allergies Active Allergy Reactions [...] resolved Need for food assistance referred to [facility] and local food alaniz 02/13/2023 [...] money to get more. Never true 01/16/2023 [place] Depression Scale Answer Date Recorded [place] Depression Scale Total 3 07/16/2023 The thought [...] 9:00 AM EST Office Visit Gynecology/Obstetrics [facility] [address] [place] [address] Yessenia Hager CRNP [address] [place] [address] 09/03/2023 9:30 AM EST [facility] [address] [place] [address] 09/10/2023 9:15 AM EST Imaging Radiology [facility] 2nd Floor, [place] [address] [place] [address] 09/11/2023 1:30 PM EST Office Visit Gynecology/Obstetrics [facility] [address] [place] [address] Yessenia Hager CRNP [address] [place] [address] Health Maintenance Due Date Last Done Comments [...]
--- OUTSIDE RECORDS SUMMARY | 2023-09-04 08:06 | External Medical Summary | Summary of Care ---
Author Name Unknown Organization [facility] Address [address] [place] [address] Phone [phone] Care Team Providers Care Mortgage Analyst Name Role Phone Unavailable Primary Care Provider Unavailabl e Encounter Details Date Type Department Care Team (Late st Contact Info) Description 08/28/2023 Telephone Gynecology/Obstetrics [facility] [address] [place] [address] Lary Gudino MD [address] [place] [address] Allergies Active Allergy Reactions Criticality [...] resolved Need for food assistance referred to [facility] and local food alaniz 02/13/2023 Lupe [...] money to get more. Never true 01/16/2023 [place] Depression Scale Answer Date Recorded [place] Depression Scale Total 3 07/16/2023 The thought [...] Telephone Encounter - Leeanne Holt RN - 08/28/2023 11:24 AM EST See other encounter. * Telephone Encounter - Leeanne Holt RN - 08/28/2023 11:24 AM EST ----- Message from Lary Gudino MD sent at 08/28/2023 10:52 AM EST ----- Regarding: schedule IOL Would recommend IOL at 39 weeks for poly, unstable lie and at [facility] Not on Fri (since TOLAC) Thank you! ----- Message ----- From: Trey Naranjo In Sent: 08/28/2023 10:13 AM EST To: Lary Gudino MD documented in this encounter Plan of Treatment Upcoming Encounters Date Type Department Care Team (Late st Contact Info) Description 09/03/2023 9:00 AM EST Office Visit Gynecology/Obstetrics [facility] [address] [place] [address] Yessenia Hager CRNP [address] [place] [address] 09/03/2023 9:30 AM EST Imaging Radiology [facility] [address] [place] [address] 09/10/2023 9:15 AM EST Imaging Radiology [facility] 2nd Floor, [place] [address] [place] [address] 09/11/2023 1:30 PM EST Office Visit Gynecology/Obstetrics [facility] [address] [place] [address] Yessenia Hager CRNP [address] [place] [address] Health Maintenance Due Date Last Done Comments [...]
--- OUTSIDE RECORDS SUMMARY | 2023-09-04 08:06 | External Medical Summary | Summary of Care ---
Author Name Unknown Organization [facility] Address [address] [place] [address] Phone [phone] Care Team Providers Care Underwriter Name Role Phone Unavailable Primary Care Provider Unavailabl e Reason for Visit * Reason Onset Date Comments Order Request 08/19/2023 BPP ultrasound Encounter Details Date Type Department Care Team (Late st Contact Info) Description 08/19/2023 Telephone Gynecology/Obstetrics [facility] [address] [place] [address] Lary Gudino MD [address] [place] [address] Order Request (BPP ultrasound) Allergies [...] resolved Need for food assistance referred to [facility] and local food alaniz 02/13/2023 Nicola [...] money to get more. Never true 01/16/2023 [place] Depression Scale Answer Date Recorded [place] Depression Scale Total 3 07/16/2023 The thought [...] 08/20/2023 9:00 AM EST Office Visit Gynecology/Obstetrics [facility] [address] [place] [address] Yessenia Hager CRNP [address] [place] [address] 08/20/2023 9:45 AM EST Imaging Radiology [facility] [address] [place] [address] 08/28/2023 8:45 AM EST Office Visit Gynecology/Obstetrics [facility] [address] [place] [address] Saulo Cueto MD [address] [place] [address] 08/28/2023 9:15 AM EST Imaging Radiology [facility] 2nd [facility] [address] [place] [address] 09/03/2023 9:00 AM EST Office Visit Gynecology/Obstetrics [facility] [address] [place] [address] Yessenia Hager CRNP [address] [place] [address] 09/03/2023 9:30 AM EST Imaging Radiology [facility] [address] [place] [address] 09/10/2023 8:45 AM EST Office Visit Gynecology/Obstetrics [facility] [address] [place] [address] Maribel Rowley CRNP [address] [place] [address] 09/10/2023 9:15 AM EST Imaging Radiology [facility] [address] [place] [address] Health Maintenance Due Date Last Done Comments [...]
--- OUTSIDE RECORDS SUMMARY | 2023-09-04 08:07 | External Medical Summary | Summary of Care ---
Author Name Unknown Organization [facility] Address [address] [place] [address] Phone [phone] Care Team Providers Care Tire Fixer Name Role Phone Nicole Stewart MD Primary Care Provider [phone] Reason for Visit * Reason Comments Return Visit Encounter Details Date Type Department Care Team (Late st Contact Info) Description 07/16/2023 9:00 AM EST Office Visit Gynecology/Obstetric [facility] [address] [place] [address] Yessenia Hager CRNP [address] [place] [address] Encounter for supervision of other normal in third trimester*; Depression complicating , antepartum; Previous delivery affecting ; Positive serological reaction for syphilis Allergies Active Allergy Reactions Criticality Noted Date Comments Escitalopram Oxalate 07/20/2019 Mood swings, decreased appetite, lethargy documented as of this encounter (statuses as of 07/16/2023) Medications Medication Sig Dispensed Refills Start Date End Date Status 27-0.8 MG Oral Tablet Take by mouth. 0 Active documented as of this encounter (statuses as of 07/16/2023) Active Problems Problem Noted Date Diagnosed Date Health counseling 02/13/2023 Overview: Problem Action Taken Date entered Entered by Date resolved Need for food assistance referred to [facility] and local food alaniz 02/13/2023 [...] as of this encounter (statuses as of 07/16/2023) Resolved Problems Problem Noted Date Diagnosed Date Resolved Date Malpresentation of fetus 09/11/2021 Antepartum anemia complicating 06/29/2021 07/24/2022 Overview: Cbc: 11.7 at 28 weeks, start Vitron C Supervision of normal first 02/15/2021 09/22/2021 Current mild episode of anca r depressive disorder without prior episode 07/30/2018 2 Status post tympanoplasty 12/20/2017 documented as of this encounter (statuses as of 07/16/2023) Immunizations Name Administration Dates Next Due DTaP [...] money to get more. Never true 01/16/2023 [place] Depression Scale Answer Date Recorded [place] Depression Scale Total 3 07/16/2023 The thought [...] Sign Reading Time Taken Comments Blood Pressure 100/60 07/16/2023 8:43 AM EST Pulse - - Temperature - - Respiratory Rate - - Oxygen Saturation - - Inhaled Oxygen Concentration - - Weight 67.1 kg (148 lb) 07/16/2023 8:43 AM EST Height - - Body Mass Index 27.07 06/18/2023 9:04 AM EDT documented in this encounter Progress Notes * Yessenia Hager CRNP - 07/16/2023 9:18 AM EST 32w0d Complaints: none. Baby is in ribs, which is uncomfortable Feeling well overall. Good FM. No contractions, bleeding, or LOF. Interested in TOLAC. Needs appt with physician to discuss. YOLANDE Christie * Sarah Villanueva LPN - 07/16/2023 8:44 AM EST 32w0d Denies vaginal bleeding/rom + movement No new concerns documented in this encounter Nursing Notes * Lupe Epstein RN - 07/16/2023 10:14 AM EST Patient seen by [facility] Program Director [employer]. Patient denies any questions or concerns. documented in this encounter Plan of Treatment Upcoming Encounters Date Type Department Care Team (Late st Contact Info) Description 07/30/2023 9:00 AM EST Office Visit Gynecology/Obstetrics [facility] [address] [place] [address] Yessenia Hager CRNP [address] [place] [address] 08/14/2023 3:00 PM EST Office Visit Gynecology/Obstetrics [facility] [address] [place] [address] Lary Gudino MD [address] [place] [address] [place] [address] 08/20/2023 9:00 AM EST Office Visit Gynecology/Obstetrics [facility] [address] [place] [address] Yessenia Hager CRNP [address] [place] [address] 08/28/2023 8:45 AM EST Office Visit Gynecology/Obstetrics [facility] [address] [place] [address] Saulo Cueto MD [address] [place] [address] 09/03/2023 9:00 AM EST Office Visit Gynecology/Obstetrics [facility] [address] [place] [address] Yessenia Hager CRNP [address] [place] [address] 09/10/2023 8:45 AM EST Office Visit Gynecology/Obstetrics [facility] [address] [place] [address] Maribel Rowley CRNP [address] [place] [address] Health Maintenance Due Date Last Done Comments [...] serological reaction for syphilis Latent syphilis, unspecified documented in this encounter Care Teams Tire Fixer Relationship Specialty Start Date End Date Nicole Stewart MD [address] [place] [address] PCP - General Internal Medicine 01/07/23 documented as of this encounter
--- OUTSIDE RECORDS SUMMARY | 2023-09-04 08:07 | External Medical Summary | Summary of Care ---
Author Name Unknown Organization [facility] Address [address] [facility] [place] [address] Phone [phone] Care Team Providers Care Ferry Pilot Name Role Phone Unavailable Primary Care Provider Unavailabl e Encounter Details Date Type Department Care Team (Late st Contact Info) Description 08/15/2023 Telephone Gynecology/Obstetrics [facility] [address] [facility] [place] [address] Lary Gudino MD [address] [place] [address] Allergies Active Allergy Reactions Criticality Noted Date Comments Escitalopram Oxalate 07/20/2019 Mood swings, decreased appetite, lethargy documented as of this encounter (statuses as of 08/15/2023) Medications Medication Sig Dispensed Refills Start Date End Date Status 27-0.8 MG Oral Tablet Take by mouth. 0 Active documented as of this encounter (statuses as of 08/15/2023) Active Problems Problem Noted Date Diagnosed Date presentation, breech 08/15/2023 Polyhydramnios in third trimester 08/15/2023 Health counseling 02/13/2023 Overview: Problem Action Taken Date entered Entered by Date resolved Need for food assistance referred to [facility] and local food alaniz 02/13/2023 Lupe [...] as of this encounter (statuses as of 08/15/2023) Resolved Problems Problem Noted Date Diagnosed Date Resolved Date Malpresentation of fetus 09/11/2021 Antepartum anemia complicating 06/29/2021 07/24/2022 Overview: Cbc: 11.7 at 28 weeks, start Vitron C Supervision of normal first 02/15/2021 09/22/2021 Current mild episode of anca r depressive disorder without prior episode 07/30/2018 Status post tympanoplasty 12/20/2017 documented as of this encounter (statuses as of 08/15/2023) Immunizations Name Administration Dates Next Due DTaP [...] money to get more. Never true 01/16/2023 [place] Depression Scale Answer Date Recorded [place] Depression Scale Total 3 07/16/2023 The thought [...] Telephone Encounter - Lary Gudino MD - 08/15/2023 11:24 AM EST Mfm referral placed Patient updated after leaving US Weekly BPP Plan for repeat c section at 39 week if still breech documented in this encounter Plan of Treatment Upcoming Encounters Date Type Department Care Team (Late st Contact Info) Description 08/20/2023 9:00 AM EST Office Visit Gynecology/Obstetrics [facility] [address] [place] [address] Yessenia Hager CRNP [address] [place] [address] 08/28/2023 8:45 AM EST Office Visit Gynecology/Obstetrics [facility] [address] [place] [address] Saulo Cueto MD [address] [place] [address] 09/03/2023 9:00 AM EST Office Visit Gynecology/Obstetrics [facility] [address] [place] [address] Yessenia Hager CRNP [address] [place] [address] 09/10/2023 8:45 AM EST Office Visit Gynecology/Obstetrics [facility] [address] [place] [address] Maribel Rowley CRNP [address] [place] [address] Scheduled Orders Name Type Priority Associated Diagnoses Orde r Schedule [facility] US MATERNAL 1ST FETUS Medical Imaging Routine Breech presentation, single or unspecified fetus Polyhydramnios affecting in third trimester Expected: 08/15/2023, Expires: 09/15/2024 Health Maintenance Due Date Last Done Comments [...] as of this encounter Visit Diagnoses Diagnosis Breech presentation, single or unspecified fetus- Primary Polyhydramnios affecting in third trimester documented in this encounter
--- OUTSIDE RECORDS SUMMARY | 2023-09-04 08:07 | External Medical Summary | Summary of Care ---
Author Name Unknown Organization [facility] Address [address] [place] [address] Phone [phone] Care Team Providers Care Heating Systems Installer Name Role Phone Nicole Stewart MD Primary Care Provider [phone] Reason for Visit * Reason Comments Outpatient Testing Encounter Details Date Type Department Care Team Description 06/18/2023 Laboratory Laboratory, [facility] [address] [place] [address] [facility] [address] [place] [address] Encounter for supervision of other normal in second trimester Allergies Active Allergy Reactions Severity Noted Date Comments Escitalopram Oxalate 07/20/2019 Mood swings, decreased appetite, lethargy documented as of this encounter (statuses as of 06/18/2023) Medications Medication Sig Dispensed Refills Start Date End Date Status 27-0.8 MG Oral Tablet Take by mouth. 0 Active documented as of this encounter (statuses as of 06/18/2023) Active Problems Problem Noted Date Health counseling 02/13/2023 Overview: Problem Action Taken Date entered Entered by Date resolved Need for food assistance referred to [facility] and local food alaniz 02/13/2023 [...] or questions 06/18/2023 Leeanne Holt RN 06/18/2023 Positive serological reaction for syphil is 01/17/2023 Overview: Neg confirmatory testing Supervision of normal 01/17/20 23 Depression complicating , antep artum 01/16/2023 Overview: No meds at [facility] Previous delivery affecting pre gnancy 01/16/2023 Overview: For breech; desires TOLAC Anxiety 07/24/2022 Concentration deficit 07/24/2022 Iron deficiency anemia 07/24/2022 Estimated Date of Delivery Comme nts Yes 09/10/2023 Based on Ultraso und documented as of this encounter (statuses as of 06/18/2023) Resolved Problems Problem Noted Date Resolved Date Malpresentation of fetus 09/11/2021 022 Antepartum anemia complicating 021 07/24/2022 Overview: Cbc: 11.7 at 28 weeks, start Vitron C Supervision of normal first 02/15/2021 09/22/2021 Current mild episode of anca r depressive disorder without prior episode 07/30/2018 07/24/2022 Status post tympanoplasty 12/20/20172020 documented as of this encounter (statuses as of 06/18/2023) Immunizations Name Administration Dates Next Due DTaP [...] Inj 07/12/2009,06/16/2008,06/17/2007,07/08,06/15/2005,07/26/2003 TDAP (age 10 and older)(Boostrix) 06/28/2021,04/2018 TDAP (age 11 and older)(Adacel) 06/16/2008 Varicella Vaccine (Chicken Pox) 01/13/1998 Varicella Zoster Vaccine (Adult) 06/16/2008 documented as of this encounter Social History Tobacco Use Types Packs/Day Years Used Date Smoking Tobacco: Never Smokeless Tobacco: Never Alcohol Use Standard Drinks/Week Comments Not Currently 0 (1 standard drink = 0.6 oz pur e alcohol) social Alcohol Habits Answer Date Recorded How often do you have a drink containing alcohol ? Monthly or less 02/24/2019 How many drinks containing a lcohol do you have on a typical day when you are drinking? Not asked 02/10/2021 How often do you have six or more drinks on one occasion? Not asked 02/10/2021 Food Insecurity Answer Date Recorded Within the past 12 months, y ou worried that your food would run out before you got money to buy more. Never true 01/16/2023 Within the past 12 months, t he food you bought just didn't last and you didn't have money to get more. Never true 01/16/2023 Estimated Date of Delivery Comme nts Yes 09/10/2023 Based on Ultraso und Sex Assigned at Date Recorded Female 12/15/2018 2:51 PM E DT Job Start Date Occupation Industry Not on file Not on file Not on file documented as of this encounter Plan of Treatment Upcoming Encounters Date Type Specialty Care Team Description 07/02/2023 Office Visit Gynecology Obstetrics Maribel Rowley CRNP [address] [place] [address] 07/16/2023 Office Visit Gynecology Obstetrics Yessenia Hager CRNP [address] [place] [address] 07/30/2023 Office Visit Gynecology Obstetrics Yessenia Hager CRNP [address] [place] [address] 08/14/2023 Office Visit Gynecology Obstetrics Lary Gudino MD [address] [place], [place] [address] [id number] 08/20/2023 Office Visit Gynecology Obstetrics Yessenia Hager CRNP [address] [place] [address] 08/28/2023 Office Visit Gynecology Obstetrics Saulo Cueto MD [address] [place] [address] 09/03/2023 Office Visit Gynecology Obstetrics Yessenia Hager CRNP [address] [place] [address] 09/10/2023 Office Visit Gynecology Obstetrics Yessenia Hager CRNP [address] [place] [address] Pending Results Name Type Priority Associated Diagnoses Date /Time 50-G GESTATIONAL GLUCOSE, 1 HOUR Lab Routine Encounter for supervision of other normal in second trimester 06/18/2023 10:07 AM EDT Health Maintenance Due Date Last Done Comments COVID-19 Vaccine (#1) 1997 Depression Screening 05/30/2021 05/30/2020, 02/09/2015 (Discussed) Influenza Vaccine (FLU shot) (#1) 2023 07/12/2021, 05/30/2020, 06/11/2019, Additional history exists Pap Smear 02/16/2024 02/15/2021, 04/2018, 06/16/2018 DTaP,Tdap,and Td Vaccines (9 - Td or Tdap) 06/28/2031 06/28/2021, 06/16/2018, 06/16/2018, Additional history exists Hepatitis B Completed [...] Encounter for supervision of other normal in second trimester documented in this encounter Care Teams Heating Systems Installer Relationship Specialty Start Date End Date Nicole Stewart MD [address] [place], [place] [id number] PCP - General Internal Medicine 01/07/23 documented as of this encounter
--- OUTSIDE RECORDS SUMMARY | 2023-09-04 08:07 | External Medical Summary | Summary of Care ---
Author Name Unknown Organization [facility] Address [address] [place] [address] Phone [phone] Care Team Providers Care Commercial Artist Lettering Name Role Phone Nicole Stewart MD Primary Care Provider [phone] Reason for Visit * Reason Comments Healthy Beginnings Return Encounter Details Date Type Department Care Team (Late st Contact Info) Description 08/14/2023 3:00 PM EST Office Visit Gynecology/Obstetric [facility] [address] [facility] [place] [address] Lary Gudino MD [address] [facility] [place], [place] [phone] 36 weeks gestation of *; Previous delivery affecting ; Positive serological reaction for syphilis; Encounter for supervision of other normal in third trimester; Depression complicating , antepartum Allergies Active Allergy Reactions Criticality Noted Date Comments Escitalopram Oxalate 07/20/2019 Mood swings, decreased appetite, lethargy documented as of this encounter (statuses as of 08/14/2023) Medications Medication Sig Dispensed Refills Start Date End Date Status 27-0.8 MG Oral Tablet Take by mouth. 0 Active documented as of this encounter (statuses as of 08/14/2023) Active Problems Problem Noted Date Diagnosed Date [...] as of this encounter (statuses as of 08/14/2023) Resolved Problems Problem Noted Date Diagnosed Date Resolved Date Malpresentation of fetus 09/11/2021 Antepartum anemia complicating 06/29/2021 07/24/2022 Overview: Cbc: 11.7 at 28 weeks, start Vitron C Supervision of normal first 02/15/2021 09/22/2021 Current mild episode of anca r depressive disorder without prior episode 07/30/2018 Status post tympanoplasty 12/20/2017 documented as of this encounter (statuses as of 08/14/2023) Immunizations Name Administration Dates Next Due DTaP [...] money to get more. Never true 01/16/2023 [place] Depression Scale Answer Date Recorded [place] Depression Scale Total 3 07/16/2023 The thought [...] Sign Reading Time Taken Comments Blood Pressure 122/74 08/14/2023 2:54 PM EST Pulse - - Temperature - - Respiratory Rate - - Oxygen Saturation - - Inhaled Oxygen Concentration - - Weight 67.1 kg (148 lb) 08/14/2023 2:54 PM EST Height 157.5 cm (5' 2") 08/14/2023 2:54 PM EST Body Mass Index 27.07 08/14/2023 2:54 PM EST documented in this encounter Progress Notes * Lary Gudino MD - 08/14/2023 3:00 PM EST Patient is 28 year old at 36 1/7 weeks who presents for LIZZY visit Denies contractions, leaking of fluid, or vaginal bleeding. Noted good movement Denies headache, blurry vision, RUQ or epigastric pain. Had cramping in right leg for 1-2 days, since resolved Would like to be checked today Problem list reviewed LMP 11/26/2022 FH: 37 FHT: 145 Cx: /-3 GBS negative Drying Equipment Operator Documentation Provider requested machine shop inspector. Name of machine shop inspector: Yefri Galvan LPN Plan: Labor and preeclampsia warnings reviewed. Hydration, mag OTC as needed Flu vaccine declined RSV vaccine (32-36 02/13) recommended Unsure about control after delivery, considering ?IUD Patient was counseled at length about TOLAC with successful vs Scheduled CD vs failed TOLAC resulting in emergency CD. Successful is lowest risk, with shorter hospital stay, decreased risk of infection and hemorrhage, but increased risk of cervical/vaginal/labial lacerations.Repeat CD results in longer hospital stay, increased risks of surgical complications including infection, hemorrhage, injury, DVT/PE and the need for more pain control. A failed TOLAC with repeat CD is highest risk of all, with additional risks of failed labor and CD delivery. There is also additional risk of hypoxia that may result in , especially in setting of uterine rupture. Uterine rupture is approx 1%, with high risk for short interval pregnancies, classical CD, myomectomy surgical history. No prostaglandin medication will be given due to increased risk of uterine rupture. Will only augment labor with AROM, oxytocin, and/or adrian bulb/CRB Success for patient was calculated at 74.5%. Success rate is decreased with higher BMI, older age, CHTN, no previous successful vaginal deliveries in past, and previous arrest for prior CD. Success increased with previous vaginal deliveries. Success rate is not a reason to not offer patient TOLAC/ as long as the patient is adequately counseled about all the above risks, and counseling has been given. However a lower success, will more likely result in failed TOLAC resulting with an emergency CD. Also explained that it TOLAC versus repeat may be up to the discretion of the on-call provider, and may change during the course of her labor due to multiple risk factors, or heart tracing. Patients questions and concerns were answered More information can be obtained by patient at [email or web address] for position check today RTC 1 weeks V Terese RAYGOZA PhD documented in this encounter Nursing Notes * Lianna Vasques LPN - 08/14/2023 2:54 PM EST 36w0d GBS today. Discuss TOLAC, prior csection 09/2021 d/t breech presentation. documented in this encounter Plan of Treatment Upcoming Encounters Date Type Department Care Team (Late st Contact Info) Description 08/15/2023 10:45 AM EST Imaging Radiology [facility] 2nd Floor, [place] [address] [place] [address] 08/20/2023 9:00 AM EST Office Visit Gynecology/Obstetrics [facility] [address] [place] [address] Yessenia Hager CRNP [address] [place] [address] 08/28/2023 8:45 AM EST Office Visit Gynecology/Obstetrics [facility] [address] [place] [address] Saulo Cueto MD [address] [place] [address] 09/03/2023 9:00 AM EST Office Visit Gynecology/Obstetrics [facility] [address] [place] [address] Yessenia Hager CRNP [address] [place] [address] 09/10/2023 8:45 AM EST Office Visit Gynecology/Obstetrics [facility] [address] [place] [address] Maribel Rowley CRNP [address] [place] [address] Scheduled Orders Name Type Priority Associated Diagnoses Orde r Schedule GROUP B STREP CULTURE/PCR Lab Routine 36 weeks gestation of Expected: 08/14/2023, Expires: 08/14/2024 [facility] FOLLOW-UP EACH FETUS Medical Imaging Routine 36 weeks gestation of Expected: 08/14/2023, Expires: 09/14/2024 Health Maintenance Due Date Last Done Comments [...] as of this encounter Visit Diagnoses Diagnosis 36 weeks gestation of - Primary state, incidental Previous delivery affecting Previous delivery, unspecified as to episode of care or not applicable Positive serological reaction for syphilis Latent syphilis, unspecified Encounter for supervision of other normal in third trimester Depression complicating , antepartum Mental disorders of mother, antepartum documented in this encounter Care Teams Commercial Artist Lettering Relationship Specialty Start Date End Date Nicole Stewart MD [address] [place] [address] PCP - General Internal Medicine 01/07/23 documented as of this encounter
--- OUTSIDE RECORDS SUMMARY | 2023-09-04 08:07 | External Medical Summary | Summary of Care ---
Author Name Unknown Organization [facility] Address [address] [place] [address] Phone [phone] Care Team Providers Care Plant Tour Guide Name Role Phone Nicole Stewart MD Primary Care Provider [phone] Reason for Visit * Reason Comments Return Visit Encounter Details Date Type Department Care Team (Late st Contact Info) Description 07/02/2023 8:45 AM EDT Office Visit Gynecology/Obstetric s [facility] [address] [facility] [place] [address] Maribel Rowley CRNP [address] [facility] [place] [address] Encounter for supervision of other normal in third trimester*; Depression complicating , antepartum; Previous delivery affecting ; Positive serological reaction for syphilis; Need for prophylactic vaccination with combined nezldbjnva-meptcep-ki rtussis (DTP) vaccine Allergies Active Allergy Reactions Criticality Noted Date Comments Escitalopram Oxalate 07/20/2019 Mood swings, decreased appetite, lethargy documented as of this encounter (statuses as of 07/02/2023) Medications Medication Sig Dispensed Refills Start Date End Date Status 27-0.8 MG Oral Tablet Take by mouth. 0 Active documented as of this encounter (statuses as of 07/02/2023) Active Problems Problem Noted Date Diagnosed Date Health counseling 02/13/2023 Overview: Problem Action Taken Date entered Entered by Date resolved Need for food assistance referred to [facility] and local food [email or web address] 02/13/2023 Lupe Epstein, RN 02/13/2023 Problem Action Taken Date entered [...] or questions 06/18/2023 Leeanne Holt RN 06/18/2023 Last Assessment & Plan: Problem Action Taken [...] as of this encounter (statuses as of 07/02/2023) Resolved Problems Problem Noted Date Diagnosed Date Resolved Date Malpresentation of fetus 09/11/2021 Antepartum anemia complicating 06/29/2021 07/24/2022 Overview: Cbc: 11.7 at 28 weeks, start Vitron C Supervision of normal first 02/15/2021 09/22/2021 Current mild episode of anca r depressive disorder without prior episode 07/30/2018 11/15/202 2 Status post tympanoplasty 12/20/2017 documented as of this encounter (statuses as of 07/02/2023) Immunizations Name Administration Dates Next Due DTaP [...] money to get more. Never true 01/16/2023 [place] Depression Scale Answer Date Recorded [place] Depression Scale Total 5 01/16/2023 The thought of harming myself has occurred to me . Never 01/16/2023 Estimated Date of Delivery Comme nts [...] Sign Reading Time Taken Comments Blood Pressure 102/60 07/02/2023 8:36 AM EDT Pulse - - Temperature - - Respiratory Rate - - Oxygen Saturation - - Inhaled Oxygen Concentration - - Weight 65.8 kg (145 lb) 07/02/2023 8:36 AM EDT Height - - Body Mass Index 26.52 06/18/2023 9:04 AM EDT documented in this encounter Progress Notes * YOLANDE Hammond - 07/02/2023 8:48 AM EDT 30w0d Doing well, good movement. No ctx/bleeding. Accepts Tdap today. Return in 2 weeks. YOLANDE Trujillo * Sarah Villanueva LPN - 07/02/2023 8:36 AM EDT 30w0d Denies vaginal bleeding/rom + movement No new concerns documented in this encounter Miscellaneous Notes * Assessment & Plan Note - Leeanne Holt RN - 07/02/2023 8:52 AM EDTAssociated Problem(s): Health counseling Problem Action Taken Date entered Entered by Date resolved Current needs or questions Patient denies having any current needs or questions 07/02/2023 Leeanne Holt RN 07/02/2023 documented in this encounter Plan of Treatment Upcoming Encounters Date Type Department Care Team (Late st Contact Info) Description 07/16/2023 9:00 AM EST Office Visit Gynecology/Obstetrics [facility] [address] [place] [address] Yessenia Hager CRNP [address] [place] [address] 07/30/2023 9:00 AM EST Office Visit Gynecology/Obstetrics [facility] [address] [place] [address] Yessenia Hager CRNP [address] [place] [address] 08/14/2023 3:00 PM EST Office Visit Gynecology/Obstetrics [facility] [address] [place] [address] Lary Gudino MD [address] [place] [address] [place] [address] 08/20/2023 9:00 AM EST Office Visit Gynecology/Obstetrics [facility] [address] [place] [address] Yessenia Hager CRNP [address] [place] [address] 08/28/2023 8:45 AM EST Office Visit Gynecology/Obstetrics [facility] [address] [place] [address] Saulo Cueto MD [address] [place] [address] 09/03/2023 9:00 AM EST Office Visit Gynecology/Obstetrics [facility] [address] [place] [address] Yessenia Hager CRNP [address] [place] [address] Health Maintenance Due Date Last Done Comments [...] serological reaction for syphilis Latent syphilis, unspecified Need for prophylactic vaccination with combined eyspzlgeak-kckllwa-yzvctirts (DTP) vaccine documented in this encounter Care Teams Plant Tour Guide Relationship Specialty Start Date End Date Nicole Stewart MD [address] [place] [address] PCP - General Internal Medicine 01/07/23 documented as of this encounter
--- OUTSIDE RECORDS SUMMARY | 2023-09-04 08:07 | External Medical Summary | Summary of Care ---
Author Name Unknown Organization [facility] Address [address] [place] [address] Phone [phone] Care Team Providers Care Vice President Diversity Name Role Phone Nicole Stewart MD Primary Care Provider [phone] Reason for Visit * Reason Comments Return Visit Encounter Details Date Type Department Care Team (Late st Contact Info) Description 07/16/2023 9:00 AM EST Office Visit Gynecology/Obstetric [facility] [address] [place] [address] Yessenia Hager CRNP [address] [place] [address] Encounter for supervision of other normal in [...] resolved Need for food assistance referred to [facility] and local food [employer] 02/13/2023 Lupe [...] money to get more. Never true 01/16/2023 [place] Depression Scale Answer Date Recorded [place] Depression Scale Total 3 07/16/2023 The thought [...] No new concerns documented in this encounter Plan of Treatment Upcoming Encounters Date Type Department Care Team (Late st Contact Info) Description 07/30/2023 9:00 AM EST Office Visit Gynecology/Obstetrics [facility] [address] [place] [address] Yessenia Hager CRNP [address] [place] [address] 08/14/2023 3:00 PM EST Office Visit Gynecology/Obstetrics [facility] [address] [place] [address] Lary Gudino MD [address] [place] [address] [place] [address] 08/20/2023 9:00 AM EST Office Visit Gynecology/Obstetrics [facility] [address] [place] [address] Yessenia Hager CRNP [address] [place] [address] 08/28/2023 8:45 AM EST Office Visit Gynecology/Obstetrics [facility] [address] [place] [address] Saulo Cueto MD [address] [place] [address] 09/03/2023 9:00 AM EST Office Visit Gynecology/Obstetrics [facility] [address] [place] [address] Yessenia Hager CRNP [address] [place] [address] 09/10/2023 8:45 AM EST Office Visit Gynecology/Obstetrics [facility] [address] [place] [address] Maribel Rowley CRNP [address] [place] [address] Health Maintenance Due Date Last Done Comments [...] unspecified documented in this encounter Care Teams Vice President Diversity Relationship Specialty Start Date End Date Nicole Stewart MD [address] [facility] [place] [address] PCP - General Internal Medicine 01/07/23 documented as of this encounter
--- OUTSIDE RECORDS SUMMARY | 2023-09-04 08:07 | External Medical Summary | Summary of Care ---
Author Name Unknown Organization [facility] Address [address] [place] [address] Phone [phone] Care Team Providers Care Labor Relations Or Personnel Negotiator Name Role Phone Nicole Stewart MD Primary Care Provider [phone] Reason for Visit * Reason Comments Healthy Beginnings Return Encounter Details Date Type Department Care Team (Late st Contact Info) Description 08/14/2023 3:00 PM EST Office Visit Gynecology/Obstetric [facility] [address] [facility] [place] [address] Lary Gudino MD [address] [facility] [place], [place] [id number] 36 weeks gestation of *; Previous delivery [...] resolved Need for food assistance referred to [facility] and local food alaniz 02/13/2023 [...] money to get more. Never true 01/16/2023 [place] Depression Scale Answer Date Recorded [place] Depression Scale Total 3 07/16/2023 The [...] 37 FHT: 145 Cx: /-3 GBS negative Fitting Room Checker Documentation Provider requested social work lecturer. Name of social work lecturer: Yefri Galvan LPN Plan: Labor and preeclampsia [...] information can be obtained by patient at https://www.[facility].org/womens-health/faqs/bdyepke-cgvva-lqggh--delivery US for position check today RTC 1 weeks V Terese RAYGOZA PhD documented in this encounter Nursing Notes * Lianna Vasques LPN - 08/14/2023 2:54 PM EST 36w0d GBS today. Discuss TOLAC, prior csection 09/2021 d/t breech presentation. documented in this encounter Plan of Treatment Upcoming Encounters Date Type Department Care Team (Late st Contact Info) Description 08/15/2023 10:45 AM EST Imaging Radiology [facility] 2nd Floor, [place] [address] [place] [address] 08/20/2023 9:00 AM EST Office Visit Gynecology/Obstetrics [facility] [address] [place] [address] Yessenia Hager CRNP [address] [place] [address] 08/28/2023 8:45 AM EST Office Visit Gynecology/Obstetrics [facility] [address] [place] [address] Saulo Cueto MD [address] [place] [address] 09/03/2023 9:00 AM EST Office Visit Gynecology/Obstetrics [facility] [address] [place] [address] Yessenia Hager CRNP [address] [place] [address] 09/10/2023 8:45 AM EST Office Visit Gynecology/Obstetrics [facility] [address] [place] [address] Maribel Rowley CRNP [address] [place] [address] Scheduled Orders Name Type Priority Associated Diagnoses Orde r Schedule GROUP B STREP CULTURE/PCR Lab Routine 36 weeks gestation of Expected: 08/14/2023, Expires: 08/14/2024 [facility] FOLLOW-UP EACH FETUS Medical Imaging Routine [...] antepartum documented in this encounter Care Teams Labor Relations Or Personnel Negotiator Relationship Specialty Start Date End Date Nicole Stewart MD [address] [place] [address] PCP - General Internal Medicine 01/07/23 documented as of this encounter
--- OUTSIDE RECORDS SUMMARY | 2023-09-04 08:07 | External Medical Summary | Summary of Care ---
Author Name Unknown Organization [facility] Address [address] [place] [address] Phone [phone] Care Team Providers Care Admitting Office Escort Name Role Phone Nicole Stewart MD Primary Care Provider [phone] Reason for Visit * Reason Comments Return Visit Encounter Details Date Type Department Care Team Description 06/18/2023 [facility] [address] [place] [address] Yessenia Hager CRNP [address] [facility] [place] [address] Encounter for supervision of normal in third trimester, unspecified *; Depression complicating , antepartum; Previous delivery affecting ; Positive serological reaction for syphilis Allergies Active Allergy Reactions Severity Noted Date [...] Reading Time Taken Comments Blood Pressure 110/62 06/18/2023 9:04 AM EDT Pulse - - Temperature - - Respiratory Rate - - Oxygen Saturation - - Inhaled Oxygen Concentration - - Weight 64 kg (141 lb) 06/18/2023 9:04 AM EDT Height 157.5 cm (5' 2") 06/18/2023 9:04 AM EDT Body Mass Index 25.79 06/18/2023 9:04 AM EDT documented in this encounter Progress Notes * YOLANDE [place] - 06/18/2023 9:33 AM EDT 28w No concerns. Baby is active. No contractions, bleeding, or LOF. Some SI joint pain, recommend chiropractor. Desires TOLAC. Glucola today, undecided about TDAP. YOLANDE [place] * Lizett Rizo LPN - 06/18/2023 9:13 AM EDT 28w0d Completing 28wk labs today, denies any concerns. Going to consider tdap at next visit. documented in this encounter Plan of Treatment Upcoming Encounters Date Type Specialty Care Team Description 07/02/2023 Office Visit Gynecology Obstetrics Maribel Rowley CRNP [address] [place] [address] 07/16/2023 Office Visit Gynecology Obstetrics Yessenia Hager CRNP [address] [place] [address] 07/30/2023 Office Visit Gynecology Obstetrics Yessenia Hager CRNP [address] [place] [address] 08/14/2023 Office Visit Gynecology Obstetrics Lary Gudino MD [address] [place] [address] [place] [address] 08/20/2023 Office Visit Gynecology Obstetrics Yessenia Hager CRNP [address] [place] [address] 08/28/2023 Office Visit Gynecology Obstetrics Saulo Cueto MD [address] [place] [address] 09/03/2023 Office Visit Gynecology Obstetrics Yessenia Hager CRNP [address] [place] [address] 09/10/2023 [facility] [address] [place], [place] [address] Health Maintenance Due Date Last Done Comments [...] Diagnoses Diagnosis Encounter for supervision of normal in third trimester, unspecified - Primary Depression complicating , antepartum Mental disorders of mother, antepartum Previous delivery affecting Previous delivery, unspecified as to episode of care or not applicable Positive serological reaction for syphilis Latent syphilis, unspecified documented in this encounter Care Teams Admitting Office Escort Relationship Specialty Start Date End Date Nicole Stewart MD [address] [place] [address] PCP - General Internal Medicine 01/07/23 documented as of this encounter
--- OUTSIDE RECORDS SUMMARY | 2023-09-04 08:07 | External Medical Summary ---
Author Name Unknown Address Unknown Organization K01[facility] [place] [facility] [address] [facility] [place] [address] Laboratory Report Ordering Provider Test Date Status MARGO KIRKLAND 08/14/2023 15:38:04 Final Observation Date Value Abnormality Reference (Units ) Status Streptococcus agalactiae DNA [Presence] in Specimen by CAMI with probe detection 08/14/2023 15:38:04 Negative Negative Final No Group B Streptococcus det ected by culture-enhanced PCR (amplified probe).
The collection of vaginal/rectal swab specimen combinations (FDA approved specimen type) is optimal for the detection of Group B Streptococcus. Single source collection (vaginal only or rectal only) or alternate specimen sources may lead to false negative results. Performing Location [facility] [place] [address] [place] [address]
--- OUTSIDE RECORDS SUMMARY | 2023-09-04 08:07 | External Medical Summary | Summary of Care ---
Author Name Unknown Organization [facility] Address [address] [place] [address] Phone [phone] Care Team Providers Care Manager Benefit Name Role Phone Nicole Stewart MD Primary Care Provider [phone] Reason for Visit * Reason Comments Return Visit Encounter Details Date Type Department Care Team Description 06/18/2023 [facility] [address] [place] [address] Yessenia Hager CRNP [address] [place] [address] Encounter for supervision of normal in third [...] resolved Need for food assistance referred to [facility] and local food alaniz 02/13/2023 [...] Obstetrics Maribel Rowley CRNP [address] [place] [address] 07/16/2023 Office Visit Gynecology Obstetrics Yessenia Hager CRNP [address] [place] [address] 07/30/2023 Office Visit Gynecology Obstetrics Yessenia Hager CRNP [address] [place] [address] 08/14/2023 Office Visit Gynecology Obstetrics Lary Gudino MD [address] [place] [address] [place] [address] 08/20/2023 Office Visit Gynecology Obstetrics Yessenia Hager CRNP [address] [place] [address] 08/28/2023 Office Visit Gynecology Obstetrics Saulo Cueto MD [address] [place] [address] 09/03/2023 Office Visit Gynecology Obstetrics Yessenia Hager CRNP [address] [place] [address] 09/10/2023 [facility] [address] [place], [place] [address] Health Maintenance Due Date Last Done Comments [...] unspecified documented in this encounter Care Teams Manager Benefit Relationship Specialty Start Date End Date Nicole Stewart MD [address] [place] [address] PCP - General Internal Medicine 01/07/23 documented as of this encounter
--- OUTSIDE RECORDS SUMMARY | 2023-09-04 08:07 | External Medical Summary | Summary of Care ---
Author Name Unknown Organization [facility] Address [address] [place] [address] Phone [phone] Care Team Providers Care Banking Services Officer Name Role Phone Nicole Stewart MD Primary Care Provider [phone] Reason for Visit * Reason Comments Healthy Beginnings Return Encounter Details Date Type Department Care Team (Late st Contact Info) Description 08/14/2023 3:00 PM EST Office Visit [facility] [address] [facility] [place] [address] Lary Gudino MD [address] [facility] [place], [place] [id number] 36 weeks gestation of *; Previous delivery [...] resolved Need for food assistance referred to [facility] and local food alaniz 02/13/2023 Lupe [...] money to get more. Never true 01/16/2023 [place] Depression Scale Answer Date Recorded [place] Depression Scale Total 3 07/16/2023 The thought [...] 37 FHT: 145 Cx: /-3 GBS negative Camera Mechanic Documentation Provider requested valve fitter. Name of valve fitter: Yefri Galvan LPN Plan: Labor and preeclampsia [...] information can be obtained by patient at https://www.[facility].org/womens-health/faqs/aoxdcah-jptto-suhpf--delivery US for position check today RTC 1 weeks V Terese RAYGOZA PhD documented in this encounter Nursing Notes * Lianna Vasques LPN - 08/14/2023 2:54 PM EST 36w0d GBS today. Discuss TOLAC, prior csection 09/2021 d/t breech presentation. documented in this encounter Plan of Treatment Upcoming Encounters Date Type Department Care Team (Late st Contact Info) Description 08/15/2023 10:45 AM EST Imaging Radiology [facility] 2nd Floor, [place] [address] [place] [address] 08/20/2023 9:00 AM EST Office Visit Gynecology/Obstetrics [facility] [address] [place] [address] Yessenia Hager CRNP [address] [place] [address] 08/28/2023 8:45 AM EST Office Visit Gynecology/Obstetrics [facility] [address] [place] [address] Saulo Cueto MD [address] [place] [address] 09/03/2023 9:00 AM EST Office Visit Gynecology/Obstetrics [facility] [address] [place] [address] Yessenia Hager CRNP [address] [place] [address] 09/10/2023 8:45 AM EST Office Visit Gynecology/Obstetrics [facility] [address] [place] [address] Maribel Rowley CRNP [address] [place] [address] Pending Results Name Type Priority Associated Diagnoses Date /Time GROUP B STREP CULTURE/PCR Lab Routine 36 weeks gestation of 08/14/2023 3:38 PM EST Scheduled Orders Name Type Priority Associated Diagnoses Orde r Schedule GROUP B STREP CULTURE/PCR Lab Routine 36 weeks gestation of Expected: 08/14/2023, Expires: 08/14/2024 PREG FOLLOW-UP EACH FETUS Medical Imaging Routine 36 [...] antepartum documented in this encounter Care Teams Banking Services Officer Relationship Specialty Start Date End Date Nicole Stewart MD [address] [place] [address] PCP - General Internal Medicine 01/07/23 documented as of this encounter
--- OUTSIDE RECORDS SUMMARY | 2023-09-04 08:07 | External Medical Summary | Summary of Care ---
Author Name Unknown Organization [facility] Address [address] [place] [address] Phone [phone] Care Team Providers Care Pattern Cutter Name Role Phone Nicole Stewart MD Primary Care Provider [phone] Reason for Visit * Reason Comments Return Visit Encounter Details Date Type Department Care Team (Late st Contact Info) Description 07/30/2023 9:00 AM EST Office Visit Gynecology/Obstetric [facility] [address] [place] [address] Yessenia Hager CRNP [address] [place] [address] Encounter for supervision of other normal in third trimester*; Depression complicating , antepartum; Previous delivery affecting ; Positive serological reaction for syphilis Allergies Active Allergy Reactions Criticality Noted Date Comments Escitalopram Oxalate 07/20/2019 Mood swings, decreased appetite, lethargy documented as of this encounter (statuses as of 07/30/2023) Medications Medication Sig Dispensed Refills Start Date End Date Status 27-0.8 MG Oral Tablet Take by mouth. 0 Active documented as of this encounter (statuses as of 07/30/2023) Active Problems Problem Noted Date Diagnosed Date Health counseling 02/13/2023 Overview: Problem Action Taken Date entered Entered by Date resolved Need for food assistance [facility] and local food alaniz 02/13/2023 Lupe [...] as of this encounter (statuses as of 07/30/2023) Resolved Problems Problem Noted Date Diagnosed Date Resolved Date Malpresentation of fetus 09/11/2021 Antepartum anemia complicating 06/29/2021 07/24/2022 Overview: Cbc: 11.7 at 28 weeks, start Vitron C Supervision of normal first 02/15/2021 09/22/2021 Current mild episode of anca r depressive disorder without prior episode 07/30/2018 2 Status post tympanoplasty 12/20/2017 documented as of this encounter (statuses as of 07/30/2023) Immunizations Name Administration Dates Next Due DTaP [...] money to get more. Never true 01/16/2023 [place] Depression Scale Answer Date Recorded [place] Depression Scale Total 3 07/16/2023 The thought [...] Sign Reading Time Taken Comments Blood Pressure 100/62 07/30/2023 8:59 AM EST Pulse - - Temperature - - Respiratory Rate - - Oxygen Saturation - - Inhaled Oxygen Concentration - - Weight 67.3 kg (148 lb 6.4 oz) 07/30/2023 8:59 A M EST Height 157.5 cm (5' 2") 07/30/2023 8:59 AM EST Body Mass Index 27.14 07/30/2023 8:59 AM EST documented in this encounter Progress Notes * Yessenia Hager CRNP - 07/30/2023 9:22 AM EST [address] weak and tired over the weekend, feeling fine now. No other issues. Baby is active. No contractions, bleeding, or LOF. Still interested in TOLAC, has appt with physicians to discuss. YOLANDE Christie * Lizett Rizo LPN - 07/30/2023 9:05 AM EST 34w0d Pt denies any concerns. documented in this encounter Nursing Notes * Lupe Epstein, RN - 07/30/2023 9:07 AM EST Patient seen by [facility]. Patient denies any questions or concerns. Lupe Epstein, JOSE A documented in this encounter Plan of Treatment Upcoming Encounters Date Type Department Care Team (Late st Contact Info) Description 08/14/2023 3:00 PM EST Office Visit Gynecology/Obstetrics [facility] [address] [place] [address] Lary Gudino MD [address] [place] [address] [place] [address] 08/20/2023 9:00 AM EST Office Visit Gynecology/Obstetrics [facility] [address] [place] [address] Yessenia Hager CRNP [address] [place] [address] 08/28/2023 8:45 AM EST Office Visit Gynecology/Obstetrics [facility] [address] [place] [address] Saulo Cueto MD [address] [place] [address] 09/03/2023 9:00 AM EST Office Visit Gynecology/Obst[facility]s [facility] [address] [place] [address] Yessenia Hager CRNP [address] [place] [address] 09/10/2023 8:45 AM EST Office Visit Gynecology/Obstetrics [facility] [address] [place] [address] BackerMaribel CRNP [address] [place] [address] Health Maintenance Due Date Last Done Comments [...] unspecified documented in this encounter Care Teams Pattern Cutter Relationship Specialty Start Date End Date Nicole Stewart MD [address] [place] [address] PCP - General Internal Medicine 01/07/23 documented as of this encounter
--- OUTSIDE RECORDS SUMMARY | 2023-09-04 08:08 | External Medical Summary ---
Author Name Unknown Address Unknown Organization [id number]:LABORATORY [facility] - [address] [place] [address] Laboratory Report Ordering Provider Test Date Status JANET GOSS 05/28/2023 12:25:26 Final Observation Date Value Abnormality Reference (Units ) Status WBC, Total 05/28/2023 12:25:26 8.19 4.00-10.8 0 (K/uL) Final RBC 05/28/2023 12:25:26 3.67 3.85-5.15 (M/uL) Final Hemoglobin 05/28/2023 12:25:26 12.5 12.0-15.3 (g/dL) Final Anemia reflex testing trigge rs on a HGB < 12.0 for Females and HGB < 13.0 for Males in accordance with the WHO Anemia Guidelines
Anemia reflex testing triggers on a HGB < 12.0 for Females and HGB < 13.0 for Males in accordance with the WHO Anemia Guidelines HCT 05/28/2023 12:25:26 36.7 36.0-45.2 (%) Final MCV 05/28/2023 12:25:26 100.0 81.5-97.5 (fL) Final MCH 05/28/2023 12:25:26 34.1 27.0-34.0 (pg) Final MCHC 05/28/2023 12:25:26 34.1 32.0-36.0 (g/dL) Final RDW 05/28/2023 12:25:26 12.5 11.5-15.5 (%) Final Platelets 05/28/2023 12:25:26 202 140-400 (K /uL) Final MPV 05/28/2023 12:25:26 10.5 6.6-11.1 ( fL) Final Nucleated erythrocytes/100 leukocytes [Ratio] in Blood by Automated count 05/28/2023 12:25:26 0 <=0 (/100 WBCs) Fi nal Performing Location LABORATORY [facility] - [address] [place] [address]
--- OUTSIDE RECORDS SUMMARY | 2023-09-04 08:08 | External Medical Summary | Summary of Care ---
Author Name Unknown Organization [facility] [address] [facility] [address] Phone [phone] Care Team Providers Care Tube Station Attendant Name Role Phone Nicole Stewart MD Primary Care Provider [phone] Reason for Visit * Reason Comments Return Visit Encounter Details Date Type Department Care Team Description 03/18/2023 Office Visit Gynecology/Obstetric s [facility] [address] [place] [address] Maribel Rowley CRNP [address] [place] [address] Nurse Tee [facility] [address] [facility] [place] [address] Encounter for supervision of other normal in second trimester*; Depression complicating , antepartum; Previous delivery affecting ; Positive serological reaction for syphilis Allergies Active Allergy Reactions Severity Noted Date Comments Escitalopram Oxalate 07/20/2019 Mood swings, decreased appetite, lethargy documented as of this encounter (statuses as of 03/18/2023) Medications Medication Sig Dispensed Refills Start Date End Date Status 27-0.8 MG Oral Tablet Take by mouth. 0 Active documented as of this encounter (statuses as of 03/18/2023) Active Problems Problem Noted Date Health counseling 02/13/2023 Overview: Problem Action Taken Date entered Entered by Date resolved Need for food assistance referred to [facility] and local food frestyl 02/13/2023 Lupe Epstein RN 02/13/2023 Problem Action Taken Date entered Entered by Date resolved 1st trimester education Given 02/13/2023 Lupe Epstein RN 02/13/2023 Positive serological reaction for syphil is 01/17/2023 [...] as of this encounter (statuses as of 03/18/2023) Resolved Problems Problem Noted Date Resolved Date Malpresentation of fetus 09/11/2021 022 Antepartum anemia complicating 021 07/24/2022 Overview: Cbc: 11.7 at 28 weeks, start Vitron C Supervision of normal first 02/15/2021 09/22/2021 Current mild episode of anca r depressive disorder without prior episode 07/30/2018 07/24/2022 Status post tympanoplasty 12/20/20172020 documented as of this encounter (statuses as of 03/18/2023) Immunizations Name Administration Dates Next Due DTaP - Dipth/Tet/Acell Pertussis 002,08/12/1998,1997,05/20,1997 HIB 4 dose (Acthib) 01/13/1998, 7,1997,03/11 HPV Vaccine, 4-Valent 12/29/2008,08/26/2008,04/2008 Hepatitis B, 0-19 yrs 1997,1997,11/1996 IPV - Polio Virus Vaccine (Inact) 2001,01/13/1998,1997,03/11 MMR - Measles/Mumps/Rubella Vaccine 01/22/2002,0 01/13/1998 Meningococcal Conjugate Vacc ine (Menactra/Menveo) 02/09/2015,06/16/2008 PPD 10/13/2016 Seasonal Influenza, Quadriva lent, No Preserve, 6 Mons & Above, IM 07/12/2021,05/30/2020,06/11/2019,06/16 Seasonal Influenza, Quadriva lent, No Preserve, [...] Sign Reading Time Taken Comments Blood Pressure 96/60 03/18/2023 1:44 PM EDT Pulse - - Temperature - - Respiratory Rate - - Oxygen Saturation - - Inhaled Oxygen Concentration - - Weight 52.6 kg (116 lb) 03/18/2023 1:44 PM EDT Height - - Body Mass Index 21.22 01/16/2023 9:31 AM EDT documented in this encounter Progress Notes * YOLANDE Hammond - 03/18/2023 1:56 PM EDT Doing well, no bleeding/cramping. Discussed MSAFP and role in screening for ONTD; she will consider, aware to complete by 22wks 6d if desired. Return in 4 weeks, anatomy scan at 20 wks. YOLANDE Trujillo documented in this encounter Nursing Notes * Sarah Villanueva LPN - 03/18/2023 1:43 PM EDT 14w6d Denies vaginal bleeding/rom Absent movement Discuss MSAFP documented in this encounter Plan of Treatment Upcoming Encounters Date Type Specialty Care Team Description 04/26/2023 Imaging Radiology 04/26/2023 Office Visit Gynecology Obstetrics Naida Blackmon PA-C [address] [place] [address] Nurse Tee [facility] [address] [place] [address] Scheduled Orders Name Type Priority Associated Diagnoses Orde r Schedule US PREG SINGLE/1ST GEST, 14 WEEKS OR LATER Medical Imaging Routine Encounter for supervision of other normal in second trimester Expected: 04/23/2023 (Approximate), Expires: 04/18/2024 Health Maintenance Due Date Last Done Comments COVID-19 Vaccine (#1) 1997 Depression Screening, Annual for Pts 12 and Over 05/30/2021 05/30/2020, 02/09/2015 (Discussed) Influenza Vaccine (FLU [...] Discontinued 01/16/2023, 02/15/2021, 05/30/2020, Additional history exists Hepatitis C Screening Completed 01/16/2023 , 01/16/2023, 01/16/2023 Pneumococcal Vaccine: Pediatrics (0 to 5 Years) and At-Risk Patients (6 to 64 Years) Aged Out No longer eligible based on patient's age to complete this topic documented as of this encounter Medical Devices Not on filedocumented as of this encounter Visit Diagnoses Diagnosis Encounter for supervision of other normal in second trimester- Primary Depression complicating , antepartum Mental disorders of mother, antepartum Previous delivery affecting Previous delivery, unspecified as to episode of care or not applicable Positive serological reaction for syphilis Latent syphilis, unspecified documented in this encounter Care Teams Tube Station Attendant Relationship Specialty Start Date End Date Nicole Stewart MD [address] [place] [address] PCP - General Internal Medicine 01/07/23 documented as of this encounter
--- OUTSIDE RECORDS SUMMARY | 2023-09-04 08:08 | External Medical Summary ---
Author Name Unknown Address Unknown Organization K01:LABORATORY [facility] - [address] [facility] [place] [address] Laboratory Report Ordering Provider Test Date Status JANET GOSS 05/28/2023 12:25:26 Final Observation Date Value Abnormality Reference (Units ) Status SYNC LEUKOCYTES IN BLOOD BY AUTOMATED COUNT 05/28/2023 12:25:26 8.19 4.00-10.80 (K/uL) Final Segs 05/28/2023 12:25:26 76.7 Above high normal 40.0-75.0 (%) Final Lymphs % 05/28/2023 12:25:26 16.5 Below low normal 18.0-42.0 (%) Final Monos 05/28/2023 12:25:26 6.0 1.0-11.0 (%) Final Eosinophils 05/28/2023 12:25:26 0.1 0.0-6.0 (%) Final Basos 05/28/2023 12:25:26 0.2 0.0-2.0 (%) Final Immature Granulocyte, Percent 05/28/2023 12:25:26 0.5 0.0-2.0 (%) Final Absolute Segs 05/28/2023 12:25:26 6.28 1.80-7.70 (K/uL) Final Lymphs, absolute 05/28/2023 12:25:26 1.35 1.00-4.80 (K/ul) Final Monos, Abs 05/28/2023 12:25:26 0.49 0.00-1.10 (K/uL) Final Eos, Abs 05/28/2023 12:25:26 0.01 0.00-0.70 (K/uL) Final Basos, Abs 05/28/2023 12:25:26 0.02 0.00-0.20 (K/uL) Final Immature Granulocytes, Number 05/28/2023 12:25:26 0.04 0.00-0.20 (K/uL) Final Performing Location LABORATORY [facility] - [address] [facility] [address]
--- OUTSIDE RECORDS SUMMARY | 2023-09-04 08:08 | External Medical Summary ---
Author Name Unknown Address Unknown Organization K0G:LABORATORY [facility] [place] [facility] - [address] [place] [address] Laboratory Report Ordering Provider Test Date Status JANET GOSS 06/18/2023 10:07:55 Final Observation Date Value Abnormality Reference (Units ) Status Glucose [Moles/volume] in Serum or Plasma --1 hour post 50 g glucose PO 06/18/2023 10:07:55 98 70-129 (mg/dL) Final Performing Location LABORATORY [facility] [place] [facility] - [address] [place] [address]
--- OUTSIDE RECORDS SUMMARY | 2023-09-04 08:08 | External Medical Summary | Summary of Care ---
Author Name Unknown Organization [facility] Address [address] [place] [address] Phone [phone] Care Team Providers Care Computer Systems Support Specialist Name Role Phone Nicole Stewart MD Primary Care Provider [phone] Reason for Visit * Reason Comments Return Visit Encounter Details Date Type Department Care Team Description 06/18/2023 [facility] [address] [place] [address] Yessenia Hager CRNP [address] [place] [address] Encounter for supervision of normal in third [...] Obstetrics Maribel Rowley CRNP [address] [place] [address] 07/16/2023 Office Visit Gynecology Obstetrics Yessenia Hager CRNP [address] [place] [address] Health Maintenance Due Date Last Done Comments [...] unspecified documented in this encounter Care Teams Computer Systems Support Specialist Relationship Specialty Start Date End Date Nicole Stewart MD [address] [place] [address] PCP - General Internal Medicine 01/07/23 documented as of this encounter
--- OUTSIDE RECORDS SUMMARY | 2023-09-04 08:08 | External Medical Summary | Summary of Care ---
Author Name Unknown Organization [facility] Address [address] [facility] [place] [address] Phone [phone] Care Team Providers Care Work From Home Name Role Phone Nicole Stewart MD Primary Care Provider [phone] Reason for Visit * Reason Comments [facility] Return Encounter Details Date Type Department Care Team Description 05/28/2023 Office Visit Gynecology/Obstetric s [facility] [address] [facility] [place] [address] Naida Blackmon PA-C [address] [place] [address] Nurse Tee [facility] [address] [place] [address] Encounter for supervision of other normal in second trimester*; Depression complicating , antepartum; Previous delivery affecting ; Positive serological reaction for syphilis Allergies Active Allergy Reactions Severity Noted Date Comments Escitalopram Oxalate 07/20/2019 Mood swings, decreased appetite, lethargy documented as of this encounter (statuses as of 05/28/2023) Medications Medication Sig Dispensed Refills Start Date End Date Status 27-0.8 MG Oral Tablet Take by mouth. 0 Active documented as of this encounter (statuses as of 05/28/2023) Active Problems Problem Noted Date Health counseling 02/13/2023 Overview: Problem Action Taken Date entered Entered by Date resolved Need for food assistance referred to [facility] and local food [employer] 02/13/2023 Lupe Epstein RN 02/13/2023 Problem [...] or questions 05/28/2023 Lupe Epstein RN 05/28/2023 Positive serological reaction for syphil is 01/17/2023 [...] as of this encounter (statuses as of 05/28/2023) Resolved Problems Problem Noted Date Resolved Date Malpresentation of fetus 09/11/2021 022 Antepartum anemia complicating 021 07/24/2022 Overview: Cbc: 11.7 at 28 weeks, start Vitron C Supervision of normal first 02/15/2021 09/22/2021 Current mild episode of anca r depressive disorder without prior episode 07/30/2018 07/24/2022 Status post tympanoplasty 12/20/20172020 documented as of this encounter (statuses as of 05/28/2023) Immunizations Name Administration Dates Next Due DTaP Dipth/Tet/Acell Pertussis (Infanrix), Peds 01/22/2002,08/12/1998,1997,05/20,1997 HIB PRP-T, 4 dose (ActHib) 01/13/1998,,1997,03/11 HPV Vaccine, 4-Valent 12/29/2008,08/26/2008,04/2008 Hepatitis B, 0-19 yrs 1997,1997,11/1996 IPV - Polio Virus Vaccine (Inact) 2001,01/13/1998,1997,03/11 MMR - Measles/Mumps/Rubella Vaccine 01/22/2002,0 01/13/1998 Meningococcal Conjugate Vacc ine (Menactra/Menveo) 02/09/2015,06/16/2008 PPD 10/13/2016 Seasonal Influenza, PF, 6 mo ns & Above, IM , (Flulaval) 07/12/2021,05/30/2020,06/11/2019,06/16 Seasonal Influenza, Quadriva lent, No Preserve, [...] Reading Time Taken Comments Blood Pressure 100/64 05/28/2023 11:49 AM EDT Pulse - - Temperature - - Respiratory Rate - - Oxygen Saturation - - Inhaled Oxygen Concentration - - Weight 61.7 kg (136 lb) 05/28/2023 11:49 AM EDT Height 157.5 cm (5' 2") 05/28/2023 11:49 AM EDT Body Mass Index 24.87 05/28/2023 11:49 AM EDT documented in this encounter Progress Notes * Naida Blackmon PA-C - 05/28/2023 12:06 PM EDT 25w0d Doing well without complaints. Denies bleeding/leaking/contractions. Affirms FM. Third tri labs including glucola with next appointment. Counseled on Tdap with next appointment and recommendation.Recommended flu vaccine, declines. RTC in 3 weeks. * Lianna Galvan LPN - 05/28/2023 11:52 AM EDT 25w0d Denies concerns. documented in this encounter Nursing Notes * Lupe Epstein RN - 05/28/2023 11:58 AM EDT Patient seen by [facility] [employer] Specialist. Patient denies any questions or concerns. documented in this encounter Plan of Treatment Upcoming Encounters Date Type Specialty Care Team Description 05/28/2023 Laboratory Laboratory [facility] [place] [address] Encounter for supervision of other normal in second trimester 06/18/2023 Laboratory Laboratory [facility] [address] [facility] [address] 06/18/2023 Office Visit Gynecology Obstetrics Madan, YOLANDE [place] [address] [facility] [place] [address] Pending Results Name Type Priority Associated Diagnoses Date /Time SYPHILIS ANTIBODY SCREEN WITH REFLEX TO RPR Lab Routine Encounter for supervision of other normal in second trimester 05/28/2023 12:25 PM EDT CBC WITH WBC DIFFERENTIAL AND ANEMIA REFLEX WORKUP Lab Routine Encounter for supervision of other normal in second trimester 05/28/2023 12:25 PM EDT Scheduled Orders Name Type Priority Associated Diagnoses Orde r Schedule 50-G GESTATIONAL GLUCOSE, 1 HOUR Lab Routine Encounter for supervision of other normal in second trimester Expected: 06/27/2023 (Approximate), Expires: 05/28/2024 SYPHILIS ANTIBODY SCREEN WITH REFLEX TO RPR Lab Routine Encounter for supervision of other normal in second trimester Expected: 06/11/2023 (Approximate), Expires: 05/28/2024 CBC WITH WBC DIFFERENTIAL AND ANEMIA REFLEX WORKUP Lab Routine Encounter for supervision of other normal in second trimester Expected: 06/11/2023 (Approximate), Expires: 05/28/2024 Health Maintenance Due Date Last Done Comments COVID-19 Vaccine (#1) 1997 Depression Screening 05/30/2021 05/30/2020, 02/09/2015 (Discussed) Influenza Vaccine (FLU shot) (#1) 2023 07/12/2021, 05/30/2020, 06/11/2019, Additional history exists Pap Smear 02/16/2024 02/15/2021, 1004/2018, 06/16/2018 DTaP,Tdap,and Td Vaccines (9 - Td [...] trimester documented in this encounter Care Teams Work From Home Relationship Specialty Start Date End Date Nicole Stewart MD [address] [place] [address] PCP - General Internal Medicine 01/07/23 documented as of this encounter
--- OUTSIDE RECORDS SUMMARY | 2023-09-04 08:08 | External Medical Summary | Summary of Care ---
Author Name Unknown Organization [facility] Address [address] [facility] [address] Phone [phone] Care Team Providers Care Custom Leather Products Maker Name Role Phone Nicole Stewart MD Primary Care Provider [phone] Reason for Visit * Reason Comments Healthy Beginnings Return Non Stress Test Encounter Details Date Type Department Care Team Description 04/26/2023 Office Visit Gynecology/Obstetric s Heydi Oliveira [address] [facility] [place] [id number] Naida Blackmon PA-C [address] [place] [address] Nurse Tee Healthy Beginnings Return Edy [address] [place] [address] Encounter for supervision of other normal in second trimester*; Depression complicating , antepartum; Previous delivery affecting ; Positive serological reaction for syphilis Allergies Active Allergy Reactions Severity Noted Date Comments Escitalopram Oxalate 07/20/2019 Mood swings, decreased appetite, lethargy documented as of this encounter (statuses as of 04/26/2023) Medications Medication Sig Dispensed Refills Start Date End Date Status 27-0.8 MG Oral Tablet Take by mouth. 0 Active documented as of this encounter (statuses as of 04/26/2023) Active Problems Problem Noted Date Health counseling 02/13/2023 Overview: Problem Action Taken Date entered Entered by Date resolved Need for food assistance referred to [facility] and local food [employer] 02/13/2023 Lupe Epstein RN 02/13/2023 Problem Action Taken Date entered Entered by Date resolved 1st trimester education Given 02/13/2023 Lupe Epstein RN 02/13/2023 Problem Action Taken Date entered Entered by Date resolved Current needs or questions Patient denies having any current needs or questions 04/26/2023 Lupe Epstien RN 04/26/2023 Positive serological reaction for syphil is 01/17/2023 [...] as of this encounter (statuses as of 04/26/2023) Resolved Problems Problem Noted Date Resolved Date Malpresentation of fetus 09/11/2021 022 Antepartum anemia complicating 021 07/24/2022 Overview: Cbc: 11.7 at 28 weeks, start Vitron C Supervision of normal first 02/15/2021 09/22/2021 Current mild episode of anca r depressive disorder without prior episode 07/30/2018 07/24/2022 Status post tympanoplasty 12/20/20172020 documented as of this encounter (statuses as of 04/26/2023) Immunizations Name Administration Dates Next Due DTaP [...] Sign Reading Time Taken Comments Blood Pressure 96/58 04/26/2023 11:32 AM EDT Pulse - - Temperature - - Respiratory Rate - - Oxygen Saturation - - Inhaled Oxygen Concentration - - Weight 57.6 kg (127 lb) 04/26/2023 11:32 AM EDT Height 157.5 cm (5' 2") 04/26/2023 11:32 AM EDT Body Mass Index 23.23 04/26/2023 11:32 AM EDT documented in this encounter Progress Notes * Naida Blackmon PA-C - 04/26/2023 11:52 AM EDT 20w3d Anatomy ultrasound today, +FHT by ultrasound. Final report pending. Occasional h/a, did have headache that lasted more than a day. None since. BP WNL today. Reviewed if increasing in frequency trial of daily Magnesium 400 mg with Vitamin B2 400 mg. Pt states episode of ARRON with sneezing. Certain it was urine. Had to urinate directly after that. Denies LOF. Denies dysuria. Reviewed Kegel exercises, pelvic floor PT after delivery if needed. RTC in 4 weeks Naida Blackmon PA-C documented in this encounter Nursing Notes * Lupe Epstein RN - 04/26/2023 12:01 PM EDT Patient seen by [facility] Submarine Worker. Patient denies any questions or concerns have you cut down with your smoking n/a have you quit n/a have you seen a integration developer no have you seen a social and human services assistant no are you receiving counseling no have you received dental care during your no are you enrolled in WIC yes do you receive food stamps or rodriguez assistance no Lupe Epstein RN * Lianna Galvan LPN - 04/26/2023 11:49 AM EDT 20w3d documented in this encounter Plan of Treatment Health Maintenance Due Date Last Done Comments [...] unspecified documented in this encounter Care Teams Custom Leather Products Maker Relationship Specialty Start Date End Date Nicole Stewart MD [address] [facility] [place] [address] PCP - General Internal Medicine 01/07/23 documented as of this encounter
--- OUTSIDE RECORDS SUMMARY | 2023-09-04 08:08 | External Medical Summary | Summary of Care ---
Author Name Unknown Organization [facility] Address [address] [place] [address] Phone [phone] Care Team Providers Care Machine Stamper Name Role Phone Nicole Stewart MD Primary Care Provider [phone] Reason for Visit * Reason Comments Outpatient Testing Encounter Details Date Type Department Care Team Description 05/28/2023 Laboratory Laboratory, [facility] [address] [facility] [place] [address] [facility] [address] [place] [address] Encounter for supervision of other normal [...] resolved Need for food assistance referred to [facility] and local food alaniz 02/13/2023 [...] 4 dose (ActHib) 01/13/1998,,1997,03/11 HPV Vaccine, 4-Valent 12/29/2008,08/26/2008,10/0 04/2008 Hepatitis B, 0-19 yrs 1997,1997,11/1996 IPV - [...] Encounters Date Type Specialty Care Team Description 06/18/2023 Laboratory Laboratory Laura Oliveira [address] [place] [address] 06/18/2023 Office Visit Gynecology Obstetrics Yessenia Hager CRNP [address] [place] [id number] Pending Results Name Type Priority Associated Diagnoses Date /Time SYPHILIS ANTIBODY SCREEN WITH REFLEX TO RPR Lab Routine Encounter for supervision of other normal in second trimester 05/28/2023 12:25 PM EDT CBC WITH WBC DIFFERENTIAL AND ANEMIA REFLEX WORKUP Lab Routine Encounter for supervision of other normal in second trimester 05/28/2023 12:25 PM EDT SYPHILIS ANTIBODY SCREEN Lab Routine Encounter for supervision of other normal in second trimester 05/28/2023 12:25 PM EDT ANEMIA CBC Lab Routine Encounter for supervision of other normal in second trimester 05/28/2023 12:25 PM EDT DIFFERENTIAL, AUTOMATED Lab Routine Encounter for supervision of other normal in second trimester 05/28/2023 12:25 PM EDT ANEMIA REFLEX CHEMISTRY HOLD Lab Routine Encounter for supervision of other normal in second trimester 05/28/2023 12:25 PM EDT Health Maintenance Due Date Last Done [...] trimester documented in this encounter Care Teams Machine Stamper Relationship Specialty Start Date End Date Nicole Stewart MD [address] [place] [address] PCP - General Internal Medicine 01/07/23 documented as of this encounter
--- OUTSIDE RECORDS SUMMARY | 2023-09-04 08:08 | External Medical Summary ---
Author Name Unknown Address Unknown Organization K01:[facility] [address] [facility] [address] Laboratory Report Ordering Provider Test Date Status JANET GOSS 05/28/2023 12:25:26 Final Observation Date Value Abnormality Reference (Units ) Status Treponema pallidum Ab [Presence] in Serum by Immunoassay 05/28/2023 12:25:26 Nonreactive Nonreactive Final No serologic evidence of syp hilis. No additional testing clinicially indicated at this time. Consider repeat testing in 2-4 weeks if acute or primary syphilis is suspected. Performing Location [facility] [place] [facility] [address] [place] [address]
[2023-09-04] MEDS ORDERED: OXYTOCIN 30 UNITS/NSS 30 UNITS/500 ML BAG IV PRN ×3 (09:55→20:55)
[2023-09-04] MEDS ORDERED: LIDOCAINE 1% LOCAL 20 ML VIAL INFIL PRN (09:55)
[2023-09-04] MEDS ORDERED: METHYLERGONOVINE MALEATE 0.2 MG/ML AMP IM PRN (09:55)
[2023-09-04 10:35] LABS: Hematocrit (blood only) 33.5 % (37.0-47.0); Mean Corpuscular Hemoglobin 31.1 pg (25.0-34.0); Mean Corpuscular Hgb Conc 32.8 g/dL (32.0-36.0); Mean Corpuscular Volume 94.6 fL (80.0-100.0); Mean Platelet Volume 10.2 fL (9.4-12.4); Platelet Count 165 K/uL (130-400); RDW Coefficient of Variation 12.3 % (11.5-14.5); RDW Standard Deviation 42.8 fL (36.4-46.3); Red Blood Count 3.54 M/uL (4.20-5.40); White Blood Count 8.11 K/ul (4.8-10.8)
[2023-09-04] MEDS ORDERED: DINOPROSTONE 10 MG INSERT PV ONE (10:48)
--- NOTE | 2023-09-04 10:54 | Obstetrical Progress Note ---
Date of Service September 04, 2023 Assessment & Plan (1) Oligohydramnios: Plan: Induction for Oligohydramnios s/p c/sec. wishes to try TOLAC FHR; CAT1 Ctx; minimal VE; ft/50% post Bedside sono; VT will start induction with Cervidil discussed and reviewed induction and risk of uterine rapture with pt has had previous counseling from office Admission and Anticipated Discharge Date Admission Date: September 04, 2023 Results & Data Vital Signs (Past 12 Hours) Vital Signs Temp Pulse Resp BP 09/04/23 08:02 36.5 C 96 H 16 109/65 09/04/23 07:50 96 H 109/65
--- NOTE | 2023-09-04 11:39 | Obstetrical Progress Note ---
Date of Service September 04, 2023 Assessment & Plan (1) Oligohydramnios: Plan: Cervidil placed pt tolerated procedure well Admission and Anticipated Discharge Date Admission Date: September 04, 2023 Results & Data Vital Signs (Past 12 Hours) Vital Signs Temp Pulse Resp BP 09/04/23 08:02 36.5 C 96 H 16 109/65 09/04/23 07:50 96 H 109/65
[2023-09-04] MEDS: LACTATED RINGER'S 1,000 ML IV PRN ×3 (14:53→23:13)
--- NOTE | 2023-09-04 18:04 | Obstetrical Progress Note ---
Date of Service September 04, 2023 Assessment & Plan (1) Oligohydramnios: Plan: Pt doing well Cervidil removed VE 2cm/50/-3 FHR; CAT1 Ctx. Mild and irregular Sen bulb in placed in cervix with 30cc saline pt tolerated procedure well Admission and Anticipated Discharge Date Admission Date: September 04, 2023 Results & Data Vital Signs (Past 12 Hours) Vital Signs Temp Pulse Resp BP 09/04/23 15:43 59 L 09/04/23 15:43 93/55 L 09/04/23 15:40 18 09/04/23 15:40 36.5 C 18 09/04/23 14:59 16 09/04/23 14:59 36.6 C 16 09/04/23 14:19 78 09/04/23 14:19 113/62 09/04/23 11:36 74 09/04/23 11:36 103/59 L 09/04/23 08:02 36.5 C 96 H 16 109/65 09/04/23 07:50 96 H 109/65
[2023-09-04] MEDS ORDERED: fentANYL 2 MCG/ML BUPIVacaine 0.125%-NSS 100ML BAG ONE (22:16)
[2023-09-04] MEDS ORDERED: SODIUM CHLORIDE 0.9% PF INJ 10 ML VIAL ONE (22:16)
[2023-09-04] MEDS ORDERED: BUPIVACAINE 0.25% PF 30 ML VIAL ONE (22:16)
[2023-09-04] MEDS ORDERED: ePHEDrine sulfate 50 MG/ML AMP ONE (22:16)
[2023-09-04] MEDS ORDERED: fentaNYL citrate PF 100 MCG/2 ML VIAL ONE (22:16)
[2023-09-04] MEDS ORDERED: LIDOCAINE 2%/EPINEPHRINE 1:200,000 20 ML PF ONE (22:16)
[2023-09-04] MEDS ORDERED: NALOXONE HCL 1 MG in SODIUM CHLORIDE 0.9% 1,000 ML IV PRN (23:01)
[2023-09-04] MEDS ORDERED: fentaNYL citrate PF 100 MCG/2 ML VIAL EPI PRN (23:01)
[2023-09-04] MEDS ORDERED: diphenhydrAMINE 50 MG/ML VIAL IV PRN (23:01)
[2023-09-04] MEDS ORDERED: LIDOCAINE 2%/EPINEPHRINE 1:200,000 20 ML PF EPI STA (23:01)
[2023-09-04] MEDS ORDERED: NALOXONE HCL 0.4 MG/1 ML VIAL/CARP IV PRN (23:01)
[2023-09-04] MEDS ORDERED: ePHEDrine sulfate 50 MG/ML AMP IV PRN (23:01)
[2023-09-04] MEDS ORDERED: SODIUM CHLORIDE 0.9% PF INJ 10 ML VIAL EPI STA (23:01)
[2023-09-04] MEDS ORDERED: SODIUM CHLORIDE 0.9% PF INJ 10 ML VIAL EPI PRN (23:01)
[2023-09-04] MEDS ORDERED: BUPIVACAINE 0.25% PF 30 ML VIAL EPI STA (23:01)
[2023-09-04] MEDS ORDERED: LIDOCAINE 2% MPF LOCAL 5 ML VIAL EPI PRN (23:01)
[2023-09-04] MEDS ORDERED: fentaNYL citrate PF 100 MCG/2 ML VIAL EPI STA (23:01)
[2023-09-04] MEDS ORDERED: BUPIVACAINE 0.25% PF 30 ML VIAL EPI PRN (23:01)
[2023-09-04] MEDS ORDERED: NALBUPHINE HCL 5 MG in SYRINGE 0 ML IV PRN (23:01)
[2023-09-04] MEDS ORDERED: ROPIVACAINE 0.5% PF 5 MG/ML 20 ML VIAL EPI PRN (23:01)
--- NOTE | 2023-09-04 23:04 | Anesthesiology Consultation ---
Date of Service September 04, 2023 Assessment & Plan (1) Encounter for pre-operative examination: Chart Review Chart Review: Patient NOT seen in Pre Admission Testing and Acceptable Risk for Labor Epidural Consults Requested none History Height/Weight Height: 5 ft 2 in Weight: 68.039 kg Allergies Allergy/AdvReac Type Severity Reaction Status Date / Time escitalopram [From Lexapro] Allergy Depression Verified 09/13/21 08:16 Medications Home Medications Medication Instructions Recorded Confirmed Last Taken iron,carbonyl 65 mg-vitamin C 125 1 tab PO HS 30 days #30 tabs 09/15/21 09/12/21 Unknown mg tablet,delayed release (Vitron-C) vits no.124-ferrous fum 1 tab PO HS 30 days #30 tabs 09/15/21 09/04/23 09/03/23 10:00 27 mg iron-folic acid 800 mcg tablet ( Vitamin) Active Medications Generic Name Dose Route Start Last Admin Trade Name Freq PRN Reason Stop Dose Admin Lactated Ringer's 1,000 mls @ 125 mls/hr 09/04/23 09:55 09/04/23 23:13 Lr IV 09/06/23 09:54 999 mls/hr .Q8H PRN Administration L&D Protocol Protocol Past Medical History Medical History (Updated 09/04/23 @ 23:03 by Mansoor Garcia MD) Depression Scoliosis History of COVID-19 08/06/2021 @ [facility] in [place]--sinus congestion/fatigue--no issues now Past Family History Family History Other No family history of adverse response to anesthesia Past Surgical History Surgical History History of wisdom tooth extraction History of tonsillectomy and adenoidectomy History of ear surgery left on eardrum History of placement of ear tubes x2 History of ear surgery reconstruction done on both ears Past Anesthesia History No Hx of Anesthesia Complications and No Family Hx of Anesthesia Complications Social History Smoking Status: Never smoker Do You Dip or Chew Tobacco: No Hx Alcohol Use: No Hx Substance Use: No substance use type: does not use Physical Exam Vital Signs Last Vital Signs Temp 36.8 C 09/04/23 19:21 Pulse 75 09/04/23 23:23 Resp 18 09/04/23 19:21 BP 121/79 09/04/23 23:23 Pulse Ox 98 09/04/23 23:19 Testing Laboratory Results 09/04/23 10:17 Blood Type B Positive 09/04/23 10:17 Blood Type Cancelled 09/04/23 10:17 Antibody Screen Cancelled 09/04/23 10:17 Antibody Screen NEGATIVE 09/04/23 10:17
[2023-09-04] MEDS: fentANYL 2 MCG/ML BUPIVacaine 0.125%-NSS 100ML BAG EPI PRN (23:28)
[2023-09-05] MEDS: LACTATED RINGER'S 1,000 ML IV PRN ×3 (01:18→14:55)
--- NOTE | 2023-09-05 07:18 | Obstetrical Progress Note ---
Date of Service September 05, 2023 Assessment & Plan (1) Polyhydramnios affecting in third trimester: Plan: Induction Day #2 Pt doing well Epidural analgesia placed Spontaneous ROM at 02;00hrs FHR CAT1 Ctx; 2-3mins Pit; 4mu VE;4-5/75/-2. bulging membranes palpated AROM with amnio hook performed- Clear fluid Admission and Anticipated Discharge Date Admission Date: September 04, 2023 Results & Data Vital Signs (Past 12 Hours) Vital Signs Temp Pulse Resp BP Pulse Ox 09/05/23 07:09 57 L 97 09/05/23 07:07 74 93/51 L 09/05/23 07:04 67 96 09/05/23 07:00 18 09/05/23 07:00 18 09/05/23 06:59 61 96 09/05/23 06:54 64 96 09/05/23 06:53 52 L 86/53 L 09/05/23 06:49 62 96 09/05/23 06:44 67 96 09/05/23 06:39 62 96 09/05/23 06:38 56 L 85/51 L 09/05/23 06:34 58 L 95 09/05/23 06:30 18 09/05/23 06:30 18 09/05/23 06:29 61 96 09/05/23 06:24 58 L 95 09/05/23 06:21 60 89/53 L 09/05/23 06:19 55 L 96 09/05/23 06:14 72 96 09/05/23 06:09 65 96 09/05/23 06:06 64 91/55 L 09/05/23 06:05 36.7 C 09/05/23 06:04 59 L 95 09/05/23 06:00 18 09/05/23 06:00 18 09/05/23 05:59 61 94 09/05/23 05:54 57 L 95 09/05/23 05:51 62 91/54 L 09/05/23 05:49 58 L 94 09/05/23 05:44 56 L 95 09/05/23 05:39 57 L 95 09/05/23 05:37 55 L 78/44 L 09/05/23 05:34 55 L 96 09/05/23 05:30 16 09/05/23 05:30 16 09/05/23 05:29 57 L 95 09/05/23 05:24 56 L 95 09/05/23 05:22 62 80/46 L 09/05/23 05:19 57 L 95 09/05/23 05:14 57 L 96 09/05/23 05:09 50 L 95 09/05/23 05:08 53 L 78/47 L 09/05/23 05:04 56 L 95 09/05/23 05:00 18 09/05/23 05:00 36.6 C 18 09/05/23 04:59 78 95 09/05/23 04:54 63 95 09/05/23 04:52 63 97/56 L 09/05/23 04:49 64 95 09/05/23 04:44 66 96 09/05/23 04:39 63 96 09/05/23 04:36 63 98/59 L 09/05/23 04:34 64 96 09/05/23 04:29 56 L 96 09/05/23 04:24 64 96 09/05/23 04:23 59 L 90/53 L 09/05/23 04:19 61 96 09/05/23 04:14 63 96 09/05/23 04:09 66 96 09/05/23 04:06 71 98/62 L 09/05/23 04:04 64 96 09/05/23 04:00 16 09/05/23 04:00 16 09/05/23 03:59 69 97 09/05/23 03:54 62 96 09/05/23 03:52 59 L 90/52 L 09/05/23 03:49 55 L 96 09/05/23 03:44 67 96 09/05/23 03:39 69 96 09/05/23 03:36 57 L 93/55 L 09/05/23 03:34 66 96 09/05/23 03:29 65 96 09/05/23 03:24 57 L 96 09/05/23 03:22 59 L 89/53 L 09/05/23 03:19 60 96 09/05/23 03:14 58 L 96 09/05/23 03:09 51 L 97 09/05/23 03:07 60 95/51 L 09/05/23 03:04 59 L 96 09/05/23 02:59 55 L 97 09/05/23 02:54 60 96 09/05/23 02:51 48 L 97/56 L 09/05/23 02:49 62 96 09/05/23 02:44 54 L 96 09/05/23 02:39 61 96 09/05/23 02:36 51 L 93/51 L 09/05/23 02:34 57 L 97 09/05/23 02:30 36.6 C 20 09/05/23 02:29 66 98 09/05/23 02:24 61 97 09/05/23 02:21 68 103/54 L 09/05/23 02:19 70 97 09/05/23 02:14 67 97 09/05/23 02:09 65 97 09/05/23 02:08 66 95/54 L 09/05/23 02:04 64 96 09/05/23 02:00 18 09/05/23 02:00 18 09/05/23 01:59 71 96 09/05/23 01:54 52 L 95 09/05/23 01:52 53 L 83/50 L 09/05/23 01:49 57 L 94 09/05/23 01:44 59 L 95 09/05/23 01:39 56 L 95 09/05/23 01:37 58 L 88/50 L 09/05/23 01:34 60 94 09/05/23 01:30 18 09/05/23 01:30 18 09/05/23 01:30 18 09/05/23 01:30 18 09/05/23 01:29 60 94 09/05/23 01:24 59 L 94 09/05/23 01:22 53 L 86/51 L 09/05/23 01:19 94 09/05/23 01:19 56 L 09/05/23 01:19 61 94 09/05/23 01:14 62 94 09/05/23 01:09 60 94 09/05/23 01:06 63 101/56 L 09/05/23 01:05 57 L 94 09/05/23 01:04 61 94 09/05/23 01:00 16 09/05/23 01:00 16 09/05/23 00:59 56 L 94 09/05/23 00:56 51 L 94 09/05/23 00:54 55 L 94 09/05/23 00:51 58 L 89/50 L 12/28/23 00:50 56 L 94 09/05/23 00:49 51 L 95 09/05/23 00:44 54 L 94 09/05/23 00:42 56 L 94 09/05/23 00:39 54 L 95 09/05/23 00:38 51 L 89/55 L 09/05/23 00:34 55 L 94 09/05/23 00:30 56 L 18 94 09/05/23 00:29 57 L 95 09/05/23 00:24 54 L 96 09/05/23 00:23 56 L 89/50 L 09/05/23 00:19 52 L 98 09/05/23 00:15 18 09/05/23 00:15 18 09/05/23 00:14 52 L 98 09/05/23 00:09 57 L 98 09/05/23 00:06 70 111/57 L 09/05/23 00:04 61 98 09/05/23 00:00 73 18 109/57 L 09/04/23 23:59 97 09/04/23 23:59 58 L 09/04/23 23:54 97 09/04/23 23:54 64 09/04/23 23:54 56 L 09/04/23 23:54 99/57 L 09/04/23 23:49 98 09/04/23 23:49 61 09/04/23 23:45 20 09/04/23 23:45 20 09/04/23 23:44 98 09/04/23 23:44 61 09/04/23 23:39 97 09/04/23 23:39 62 09/04/23 23:36 68 09/04/23 23:36 107/65 09/04/23 23:35 16 09/04/23 23:35 16 09/04/23 23:34 98 09/04/23 23:34 69 09/04/23 23:34 108/62 09/04/23 23:32 66 09/04/23 23:32 101/60 09/04/23 23:31 78 09/04/23 23:31 96/68 L 09/04/23 23:30 18 09/04/23 23:30 18 09/04/23 23:29 97 09/04/23 23:29 69 09/04/23 23:28 64 12/27/23 23:28 97/58 L 09/04/23 23:26 65 09/04/23 23:26 101/58 L 09/04/23 23:25 70 09/04/23 23:25 118/67 09/04/23 23:24 98 09/04/23 23:24 68 09/04/23 23:23 18 09/04/23 23:23 18 09/04/23 23:23 75 09/04/23 23:23 121/79 09/04/23 23:19 98 09/04/23 23:19 71 09/04/23 23:14 99 09/04/23 23:14 77 09/04/23 23:09 96 09/04/23 23:09 93 H 09/04/23 23:04 100 09/04/23 23:04 82 09/04/23 22:59 98 09/04/23 22:59 70 09/04/23 22:54 99 09/04/23 22:54 75 09/04/23 22:49 99 09/04/23 22:49 68 09/04/23 22:45 36.7 C 09/04/23 22:45 68 09/04/23 22:45 118/67 09/04/23 22:44 97 09/04/23 22:44 68 09/04/23 19:21 36.8 C 18
[2023-09-05] MEDS: fentANYL 2 MCG/ML BUPIVacaine 0.125%-NSS 100ML BAG EPI PRN ×2 (08:37→13:45)
[2023-09-05] MEDS ORDERED: NURSING L&D Epidural Breakthrough Pain Update ONE (10:21)
[2023-09-05] MEDS ORDERED: IBUPROFEN 600 MG TAB PO PRN (15:35)
[2023-09-05] MEDS ORDERED: BENZOCAINE 20% SPRY 85 APPLN/85 GM CAN EXT PRN ×2 (15:35→22:10)
[2023-09-05] MEDS ORDERED: bisacodyL 10 MG SUPP PR PRN (15:35)
[2023-09-05] MEDS ORDERED: ACETAMINOPHEN 325 MG TAB PO PRN (15:35)
[2023-09-05] MEDS ORDERED: DIPHTHERIA/TETANUS/PERTUSSIS Vaccine (Tdap, Age 7+yrs) 0.5mL SYR/VL IM ONE (15:35)
[2023-09-05] MEDS ORDERED: OXYTOCIN 30 UNITS/NSS 30 UNITS/500 ML BAG IV PRN (15:35)
[2023-09-05] MEDS ORDERED: HYDROCORTISONE ACETATE 25 MG SUPP PR PRN ×2 (15:35→22:10)
--- NOTE | 2023-09-05 15:41 | Delivery Summary ---
Vaginal Delivery Summary Date of Service September 05, 2023 Vaginal Delivery Summary () over intact perineum. Cord clamped and baby to crib immediately for resuscitation. Apgars and weight pending. Loop of cord for gasses done. Placenta delivered spontaneously and intact. Uterus firm. No tears. EBL 150 ml. Final sponge and instrument count are correct. Mom and baby stable.
[2023-09-05 16:14] LABS: CO2 Cord Arterial Blood 93 mmHg (39.1-73.5); Oxygen Sat Cord Arterial Blood < 60.0 % (<60); PO2 Cord Arterial Blood 20 mmHg (4.1-31.7); pH Cord Arterial Blood < 7.00 (7.1-7.38)
[2023-09-05 16:17] LABS: Cord Venous Blood PCO2 68 mmHg (30.4-57.2); Cord Venous Blood PO2 27 mmHg (14.1-43.3); Cord Venous Blood pH < 7.00 (7.20-7.44); O2 Saturation Cord Venous Bld < 60.0 % (<68)
[2023-09-05 17:08] LABS: Hematocrit (blood only) 37.2 % (37.0-47.0); Hemoglobin 12.4 g/dl (12.0-16.0); Mean Corpuscular Hemoglobin 31.5 pg (25.0-34.0); Mean Corpuscular Hgb Conc 33.3 g/dL (32.0-36.0); Mean Corpuscular Volume 94.4 fL (80.0-100.0); Mean Platelet Volume 10.1 fL (9.4-12.4); Platelet Count 160 K/uL (130-400); RDW Coefficient of Variation 12.4 % (11.5-14.5); RDW Standard Deviation 42.7 fL (36.4-46.3); Red Blood Count 3.94 M/uL (4.20-5.40); White Blood Count 18.34 K/ul (4.8-10.8)
[2023-09-05] MEDS ORDERED: OPTIRAY 320 125ml IV ONE (17:47)
[2023-09-05] MEDS ORDERED: KETOROLAC 30 MG/ML VIAL IV ONE (18:54)
--- NOTE | 2023-09-05 19:10 | CT Scan Report ---
CT angio chest PE protocol, CT abd pelvis IV con only CT DOSE: 1255.01 mGy.cm HISTORY: 28 years-old Female with PE. Acute shortness of breath with chest and abdominal pain follo wing vaginal delivery TECHNIQUE: Multiple CTA images of the chest were obtained after the intravenous administration of 118 ml Optiray. Coronal and sagittal MIPS were obtained from the axial data set and were submitted for review. CT abdomen and pelvis with IV contrast also obtained. All measurements were obtained accordin g to NASCET criteria. A dose lowering technique was utilized adhering to the principles of ALARA. COMPARISON: None. FINDINGS: CTA: The heart is upper limits of normal in size. Unremarkable thoracic aorta and pulmonary artery. CT CHEST: Unremarkable thyroid. No lymphadenopathy. Trace pleural effusions with mild dependent subsegmental bi basilar atelectasis. No pneumothorax or airspace consolidation typical for pneumonia. Central airways are patent. Unremarkable soft tissues. There is no acute fracture. CT ABDOMEN/PELVIS: No free air. The spleen is upper limits of normal in size. Unremarkable pancreas, gallbladder, adrena l glands and liver. 7 mm hypodense focus in the right hepatic lobe is too small to characterize, like ly a small cyst. Patency of the hepatic and portal veins. Mild right greater than left bilateral hydr oureteronephrosis. No urolith identified. Decompressed bladder with wall thickening and perivesicular stranding. A Sen catheter is in place. Air within the urinary bladder lumen. Normal abdominal aort a. No lymphadenopathy identified. There is prominence of the bilateral gonadal veins. Enlarged postgr avid appearance of the uterus measuring up to 20 x 10 x 9.7 cm. Hemorrhagic debris noted within the l ower uterine segment and also within the cervical and vaginal canal. Lower uterine segment rupture is noted with defect measuring up to 5.1 cm transversely on the coronal series and likely measuring up to at least 6 cm in the craniocaudal dimension. The craniocaudal dimension is difficult to measure. M ild to moderate ascites with lower pelvic hemoperitoneum. Diastases recti. No acute fracture. Air within the epidural space likely secondary to recent instrume ntation. Epidural catheter is in place. IMPRESSION: 1. Enlarged postgravid appearance of the uterus with a large lower uterine segment defect compatible with uterine rupture. Lower pelvic hemoperitoneum with mild to moderate abdominal pelvic ascites. 2. Moderate blood products present within the lower uterine segment endometrial canal extending into the cervix and vagina. 3. No pulmonary emboli. 4. Trace pleural effusions. 5. Right greater than left hydronephrosis. Findings were discussed with Dr. Alonzo on 08/28/2023 at 7:05 PM. ACT 112: Negative or not required by law. The above report was generated using voice recognition software. It may contain grammatical, syntax o r spelling errors. Electronically signed by: Gold Lazaro M.D. 09/05/2023 7:07 PM
[2023-09-05] MEDS ORDERED: SODIUM CHLORIDE 0.9% 250 ML IV PRN (19:27)
[2023-09-05] MEDS ORDERED: fentaNYL citrate PF 100 MCG/2 ML VIAL ONE ×2 (19:30→21:20)
[2023-09-05] MEDS ORDERED: MIDAZOLAM HCL 1 MG/ML 2ML VIAL ONE (19:30)
[2023-09-05] MEDS ORDERED: LACTATED RINGER'S 1,000 ML IV SCH ×2 (19:30→22:15)
--- NOTE | 2023-09-05 19:35 | Obstetrical Progress Note ---
Date of Service September 05, 2023 Assessment & Plan (1) Uterine rupture: Exploratory laparotomy with possible repair of hysterotomy rupture, possible hysterectomy Encounter type: initial encounter Qualified Code(s): S37.69XA - Other injury of uterus, initial encounter Physical Exam Constitutional WD/WN, vitals as above Gastrointestinal (Abdomen) abdomen tender with guarding Musculoskeletal Extremities: extremities normal to inspection Skin no rashes, warm and dry Genitourinary no vaginal bleeding Results & Data Vital Signs (Past 12 Hours) Vital Signs Temp Pulse Resp BP Pulse Ox 09/05/23 19:29 100 H 87 L 09/05/23 19:28 72 95 09/05/23 19:24 36.7 C 20 09/05/23 19:23 102 H 115/60 94 09/05/23 19:18 96 H 95 09/05/23 19:13 71 96 09/05/23 19:08 62 95 09/05/23 19:03 68 95 09/05/23 18:58 72 95 09/05/23 18:53 63 116/69 94 09/05/23 18:48 60 91 09/05/23 18:43 66 95 09/05/23 18:38 64 94 09/05/23 18:33 64 93 09/05/23 18:28 68 94 09/05/23 18:23 67 114/75 94 09/05/23 18:18 61 94 09/05/23 18:17 66 94 09/05/23 18:13 68 95 09/05/23 17:52 37.2 C 18 09/05/23 17:52 72 123/73 09/05/23 17:19 78 113/73 09/05/23 17:06 73 105/69 09/05/23 16:51 75 115/68 09/05/23 16:37 67 111/66 09/05/23 16:22 76 91/61 L 09/05/23 16:07 76 120/81 09/05/23 15:51 63 113/70 09/05/23 15:36 90 119/63 09/05/23 15:34 81 98 09/05/23 15:29 77 99 09/05/23 15:24 81 97 09/05/23 15:22 68 118/58 L 09/05/23 15:19 61 96 09/05/23 15:18 63 85 L 09/05/23 15:15 20 09/05/23 15:15 20 09/05/23 15:14 64 97 09/05/23 15:09 66 99 09/05/23 15:08 82 83 L 09/05/23 15:04 67 97 09/05/23 15:03 76 84 L 09/05/23 15:00 18 09/05/23 15:00 36.6 C 18 09/05/23 14:59 66 97 09/05/23 14:56 100 H 85 L 09/05/23 14:54 98 09/05/23 14:54 77 09/05/23 14:54 80 120/68 09/05/23 14:49 81 97 09/05/23 14:46 102 H 86 L 09/05/23 14:44 98 H 99 09/05/23 14:39 118 H 92 09/05/23 14:37 109 H 104/55 L 09/05/23 14:34 104 H 96 09/05/23 14:29 124 H 86 L 09/05/23 14:24 128 H 93 09/05/23 14:23 146 H 97/66 L 09/05/23 14:19 120 H 97 09/05/23 14:18 99 H 80 L 09/05/23 14:14 75 97 09/05/23 14:09 85 96 09/05/23 14:04 67 97 09/05/23 14:03 93 H 79 L 09/05/23 13:59 62 97 09/05/23 13:54 71 98 09/05/23 13:53 77 120/80 09/05/23 13:49 96 09/05/23 13:49 101 H 09/05/23 13:49 85 83 L 09/05/23 13:44 66 96 09/05/23 13:39 64 97 09/05/23 13:37 64 115/70 09/05/23 13:34 65 96 09/05/23 13:29 75 96 09/05/23 13:24 84 96 09/05/23 13:22 77 119/69 09/05/23 13:20 16 09/05/23 13:20 36.6 C 16 09/05/23 13:19 77 96 09/05/23 13:14 86 96 09/05/23 13:09 93 H 97 09/05/23 13:06 96 H 108/68 09/05/23 13:04 79 96 09/05/23 12:59 81 96 09/05/23 12:54 71 118/78 96 09/05/23 12:49 77 97 09/05/23 12:44 72 96 09/05/23 12:39 64 97 09/05/23 12:37 62 114/82 09/05/23 12:34 66 96 09/05/23 12:29 57 L 97 09/05/23 12:24 57 L 97 09/05/23 12:22 69 107/73 09/05/23 12:19 60 98 09/05/23 12:14 70 97 09/05/23 12:09 65 97 09/05/23 12:07 73 101/71 09/05/23 12:04 91 H 95 09/05/23 11:59 75 98 09/05/23 11:54 53 L 97 09/05/23 11:53 71 98/69 L 09/05/23 11:49 68 97 09/05/23 11:44 69 96 09/05/23 11:39 63 97 09/05/23 11:37 66 102/71 09/05/23 11:34 61 98 09/05/23 11:29 76 97 09/05/23 11:24 87 97 09/05/23 11:22 75 107/58 L 09/05/23 11:19 80 98 09/05/23 11:14 60 98 09/05/23 11:09 73 97 09/05/23 11:08 75 102/68 09/05/23 11:04 60 97 09/05/23 11:00 16 09/05/23 11:00 36.7 C 16 09/05/23 10:59 56 L 98 09/05/23 10:58 71 105/59 L 09/05/23 10:54 63 98 09/05/23 10:49 52 L 97 09/05/23 10:44 36.7 C 54 L 16 99 09/05/23 10:39 61 97 09/05/23 10:37 48 L 103/75 09/05/23 10:34 49 L 97 09/05/23 10:29 62 97 09/05/23 10:24 55 L 97 09/05/23 10:23 60 109/70 09/05/23 10:19 50 L 97 09/05/23 10:14 54 L 96 09/05/23 10:09 61 97 09/05/23 10:07 54 L 105/66 09/05/23 10:04 50 L 98 09/05/23 09:59 52 L 97 09/05/23 09:54 50 L 97 09/05/23 09:53 54 L 111/85 09/05/23 09:49 54 L 97 09/05/23 09:44 61 97 09/05/23 09:39 54 L 97 09/05/23 09:36 54 L 119/68 09/05/23 09:34 62 97 09/05/23 09:29 80 98 09/05/23 09:24 81 98 09/05/23 09:23 57 L 109/68 09/05/23 09:19 65 98 09/05/23 09:14 60 97 09/05/23 09:09 71 98 09/05/23 09:07 60 112/74 09/05/23 09:04 58 L 97 09/05/23 08:59 55 L 97 09/05/23 08:54 55 L 97 09/05/23 08:51 58 L 101/61 09/05/23 08:49 63 98 09/05/23 08:44 58 L 96 09/05/23 08:39 55 L 97 09/05/23 08:37 56 L 09/05/23 08:37 102/57 L 09/05/23 08:37 60 104/57 L 09/05/23 08:34 57 L 97 09/05/23 08:30 16 09/05/23 08:30 36.7 C 16 09/05/23 08:29 70 99 09/05/23 08:24 50 L 96 09/05/23 08:23 48 L 99/56 L 09/05/23 08:19 54 L 96 09/05/23 08:14 49 L 98 09/05/23 08:12 53 L 94/55 L 09/05/23 08:09 54 L 97 09/05/23 08:04 70 98 09/05/23 07:59 82 96 09/05/23 07:54 59 L 96 09/05/23 07:51 53 L 96/54 L 09/05/23 07:49 47 L 97 09/05/23 07:44 51 L 97 09/05/23 07:39 55 L 97 09/05/23 07:36 51 L 89/51 L 09/05/23 07:34 54 L 96 Laboratory Results 09/04/23 09/04/23 09/04/23 10:17 10:17 10:17 WBC 8.11 RBC 3.54 L Hgb 11.0 L Hct 33.5 L MCV 94.6 MCH 31.1 MCHC 32.8 RDW Std Deviation 42.8 RDW Coeff of Jil 12.3 Plt Count 165 MPV 10.2 Cord ABG pH Cord ABG pCO2 Cord ABG pO2 Cord ABG HCO3 Cord ABG Base Excess Cord ABG O2 Sat Cord VBG pH Cord VBG pCO2 Cord VBG pO2 Cord VBG HCO3 Cord VBG Base Excess Cord VBG O2 Sat Blood Gas Comments Blood Type B Positive Cancelled Antibody Screen NEGATIVE Cancelled 09/05/23 09/05/23 09/05/23 15:21 15:21 16:46 WBC 18.34 H RBC 3.94 L Hgb 12.4 Hct 37.2 MCV 94.4 MCH 31.5 MCHC 33.3 RDW Std Deviation 42.7 RDW Coeff of Jil 12.4 Plt Count 160 MPV 10.1 Cord ABG pH < 7.00 L Cord ABG pCO2 93 H Cord ABG pO2 20 Cord ABG HCO3 TNP Cord ABG Base Excess TNP Cord ABG O2 Sat < 60.0 Cord VBG pH < 7.00 L Cord VBG pCO2 68 H Cord VBG pO2 27 Cord VBG HCO3 TNP Cord VBG Base Excess TNP Cord VBG O2 Sat < 60.0 Blood Gas Comments OCAMPO OCAMPO Blood Type Antibody Screen Diagnostic Findings CT scan shows rupture of lower uterine segment with hemoperitoneum. No pulmonary embolus.
--- NOTE | 2023-09-05 19:44 | Anesthesiology Consultation ---
Date of Service September 05, 2023 Assessment & Plan (1) Encounter for pre-operative examination: Chart Review Chart Review: Acceptable Risk for Surgery (emergent) History Surgery Operation Date: 09/05/23 20:00 Proposed Procedures p Total Abdominal Hysterectomy - Saulo Cueto MD Height/Weight Height: 5 ft 2 in Weight: 68.039 kg Allergies Allergy/AdvReac Type Severity Reaction Status Date / Time escitalopram [From Lexapro] Allergy Depression Verified 09/13/21 08:16 Medications Home Medications Medication Instructions Recorded Confirmed Last Taken iron,carbonyl 65 mg-vitamin C 125 1 tab PO HS 30 days #30 tabs 09/15/21 09/12/21 Unknown mg tablet,delayed release (Vitron-C) vits no.124-ferrous fum 1 tab PO HS 30 days #30 tabs 09/15/21 09/04/23 09/03/23 10:00 27 mg iron-folic acid 800 mcg tablet ( Vitamin) Active Medications Generic Name Dose Route Start Last Admin Trade Name Freq PRN Reason Stop Dose Admin Fentanyl/Bupivacaine/Sodium Chlor 100 ml 09/04/23 23:01 09/05/23 13:45 Fentanyl 2 Mcg/Ml Bupivacaine 0.125%-Nss 100ml Bag EPI 09/05/23 23:00 100 ml PRN PRN Administration Pain R/T Labor Protocol Lactated Ringer's 1,000 mls @ 125 mls/hr 09/04/23 09:55 09/05/23 17:15 Lr IV 09/06/23 09:54 Infused .Q8H PRN Infusion L&D Protocol Protocol Oxytocin 30 units in 500 mls @ 999 mls/hr 09/04/23 20:26 09/05/23 16:06 Pitocin 30 Units/Nss IV 09/06/23 20:25 Infused .Q31M PRN Titration Labor Induction/Augmentation Protocol 59.94 UNITS/HR Ibuprofen 600 mg 09/05/23 15:35 09/05/23 16:28 Ibuprofen 600 Mg Tab PO 10/05/23 15:34 600 mg Q4H PRN Administration Pain/AC/Cramping/Fever NPO Date Last Intake of Fluids: 09/04/23 Time Last Intake of Fluids: 21:00 Date Last Intake of Solids: 09/04/23 Time Last Intake of Solids: 12:00 Past Medical History Medical History Postop check Depression Scoliosis History of COVID-19 08/06/2021 @ [facility] in [place]--sinus congestion/fatigue--no issues now Past Family History Family History Other No family history of adverse response to anesthesia Past Surgical History Surgical History (Updated 09/05/23 @ 19:43 by Beau Rowe MD) Hx of section History of wisdom tooth extraction History of tonsillectomy and adenoidectomy History of ear surgery left on eardrum History of placement of ear tubes x2 History of ear surgery reconstruction done on both ears Social History Smoking Status: Never smoker Do You Dip or Chew Tobacco: No Hx Alcohol Use: No Hx Substance Use: No substance use type: does not use Physical Exam Vital Signs Last Vital Signs Temp 36.7 C 09/05/23 19:24 Pulse 96 H 09/05/23 19:37 Resp 20 09/05/23 19:24 BP 115/60 09/05/23 19:23 Pulse Ox 89 L 09/05/23 19:37 Testing Laboratory Results 09/05/23 16:46 Blood Type B Positive 09/04/23 10:17 Blood Type Cancelled 09/04/23 10:17 Antibody Screen Cancelled 09/04/23 10:17 Antibody Screen NEGATIVE 09/04/23 10:17
[2023-09-05] MEDS ORDERED: AZITHROMYCIN 500 MG in DEXTROSE 5% 250 ML IV SCH (19:45)
[2023-09-05] MEDS ORDERED: ceFAZolin 2000MG 2,000 MG/15 ML SYR IV SCH (19:45)
--- NOTE | 2023-09-05 20:11 | History & Physical Report ---
Date of Service September 05, 2023 Assessment & Plan (1) Uterine rupture: Plan: Exploratory laparotomy with closure of hysterotomy and possible hysterectomy Admission and Anticipated Discharge Date Admission Date: September 04, 2023 History of Present Illness Chief Complaint: abdominal pain Primary Care Provider: MANN PCP 28 F [id number] s/o developed pain in right shoulder with pain on deep inspiration. CT scan of chest obtained to r/o PE was negative. CT of abdomen pelvis shows uterine rupture. Allergies Allergy/AdvReac Type Severity Reaction Status Date / Time escitalopram [From Lexapro] Allergy Depression Verified 09/13/21 08:16 Home Medications Medication Instructions Recorded Confirmed Type iron,carbonyl 65 mg-vitamin C 125 1 tab PO HS 30 days #30 tabs 09/15/21 09/12/21 Rx mg tablet,delayed release (Vitron-C) vits no.124-ferrous fum 1 tab PO HS 30 days #30 tabs 09/15/21 09/04/23 Rx 27 mg iron-folic acid 800 mcg tablet ( Vitamin) Patient History Medical History Postop check Depression Scoliosis History of COVID-19 08/06/2021 @ [facility] in [place]--sinus congestion/fatigue--no issues now Surgical History Hx of section History of wisdom tooth extraction History of tonsillectomy and adenoidectomy History of ear surgery left on eardrum History of placement of ear tubes x2 History of ear surgery reconstruction done on both ears Family History Other No family history of adverse response to anesthesia Social History Smoking Status: Never smoker Second Hand Exposure: No; Do You Dip or Chew Tobacco: No; Hx Alcohol Use: No Hx Substance Use: No Preferred Language: Wolof Communication Ability: Effective Cardiovascular Physician Assistant Required: No Beliefs That Will Affect Care: None marital status: Single Current Living Situation: Family Current Living Situation Comment: Lives with boyfriend Messi Edmondson and zion Byrd, 2 cats and 2 dogs Other Information That Helps Us Care for You: No Feels Safe at Home: Yes Safety Concerns: Feels Safe At This Time Assistive Devices: None OB History today MEDICAL SCHEDULER History neg Review of Systems All systems reviewed & are unremarkable except as noted in HPI & below Physical Exam Constitutional: WD/WN, vitals as above Eyes: PERRL, conjunctivae normal, anicteric sclerae Respiratory: normal respiratory effort, lungs clear to auscultation Cardiovascular: Rate/Rhythm: regular rate Gastrointestinal (Abdomen): tender to palpation with guarding. old scar noted Musculoskeletal: Extremities: extremities normal to inspection Skin: no rashes, warm and dry Neurologic: patellar DTR's 2+ bilat, sensation intact Psychiatric: A+Ox3, euthymic affect Results & Data Vital Signs (Past 12 Hours) Vital Signs Temp Pulse Resp BP Pulse Ox 09/05/23 19:37 96 H 89 L 09/05/23 19:33 73 95 09/05/23 19:29 100 H 87 L 09/05/23 19:28 72 95 09/05/23 19:24 36.7 C 20 09/05/23 19:23 102 H 115/60 94 09/05/23 19:18 96 H 95 09/05/23 19:13 71 96 09/05/23 19:08 62 95 09/05/23 19:03 68 95 09/05/23 18:58 72 95 09/05/23 18:53 63 116/69 94 09/05/23 18:48 60 91 09/05/23 18:43 66 95 09/05/23 18:38 64 94 09/05/23 18:33 64 93 09/05/23 18:28 68 94 09/05/23 18:23 67 114/75 94 09/05/23 18:18 61 94 09/05/23 18:17 66 94 09/05/23 18:13 68 95 09/05/23 17:52 37.2 C 18 09/05/23 17:52 72 123/73 09/05/23 17:19 78 113/73 09/05/23 17:06 73 105/69 09/05/23 16:51 75 115/68 09/05/23 16:37 67 111/66 09/05/23 16:22 76 91/61 L 09/05/23 16:07 76 120/81 09/05/23 15:51 63 113/70 09/05/23 15:36 90 119/63 09/05/23 15:34 81 98 09/05/23 15:29 77 99 09/05/23 15:24 81 97 09/05/23 15:22 68 118/58 L 09/05/23 15:19 61 96 09/05/23 15:18 63 85 L 09/05/23 15:15 20 09/05/23 15:15 20 09/05/23 15:14 64 97 09/05/23 15:09 66 99 09/05/23 15:08 82 83 L 09/05/23 15:04 67 97 09/05/23 15:03 76 84 L 09/05/23 15:00 18 09/05/23 15:00 36.6 C 18 09/05/23 14:59 66 97 09/05/23 14:56 100 H 85 L 09/05/23 14:54 98 09/05/23 14:54 77 09/05/23 14:54 80 120/68 09/05/23 14:49 81 97 09/05/23 14:46 102 H 86 L 09/05/23 14:44 98 H 99 09/05/23 14:39 118 H 92 09/05/23 14:37 109 H 104/55 L 09/05/23 14:34 104 H 96 09/05/23 14:29 124 H 86 L 09/05/23 14:24 128 H 93 09/05/23 14:23 146 H 97/66 L 09/05/23 14:19 120 H 97 09/05/23 14:18 99 H 80 L 09/05/23 14:14 75 97 09/05/23 14:09 85 96 09/05/23 14:04 67 97 09/05/23 14:03 93 H 79 L 09/05/23 13:59 62 97 09/05/23 13:54 71 98 09/05/23 13:53 77 120/80 09/05/23 13:49 96 09/05/23 13:49 101 H 09/05/23 13:49 85 83 L 09/05/23 13:44 66 96 09/05/23 13:39 64 97 09/05/23 13:37 64 115/70 09/05/23 13:34 65 96 09/05/23 13:29 75 96 09/05/23 13:24 84 96 09/05/23 13:22 77 119/69 09/05/23 13:20 16 09/05/23 13:20 36.6 C 16 09/05/23 13:19 77 96 09/05/23 13:14 86 96 09/05/23 13:09 93 H 97 09/05/23 13:06 96 H 108/68 09/05/23 13:04 79 96 09/05/23 12:59 81 96 09/05/23 12:54 71 118/78 96 09/05/23 12:49 77 97 09/05/23 12:44 72 96 09/05/23 12:39 64 97 09/05/23 12:37 62 114/82 09/05/23 12:34 66 96 09/05/23 12:29 57 L 97 09/05/23 12:24 57 L 97 09/05/23 12:22 69 107/73 09/05/23 12:19 60 98 09/05/23 12:14 70 97 09/05/23 12:09 65 97 09/05/23 12:07 73 101/71 09/05/23 12:04 91 H 95 09/05/23 11:59 75 98 09/05/23 11:54 53 L 97 09/05/23 11:53 71 98/69 L 09/05/23 11:49 68 97 09/05/23 11:44 69 96 09/05/23 11:39 63 97 09/05/23 11:37 66 102/71 09/05/23 11:34 61 98 09/05/23 11:29 76 97 09/05/23 11:24 87 97 09/05/23 11:22 75 107/58 L 09/05/23 11:19 80 98 09/05/23 11:14 60 98 09/05/23 11:09 73 97 09/05/23 11:08 75 102/68 09/05/23 11:04 60 97 09/05/23 11:00 16 09/05/23 11:00 36.7 C 16 09/05/23 10:59 56 L 98 09/05/23 10:58 71 105/59 L 09/05/23 10:54 63 98 09/05/23 10:49 52 L 97 09/05/23 10:44 36.7 C 54 L 16 99 09/05/23 10:39 61 97 09/05/23 10:37 48 L 103/75 09/05/23 10:34 49 L 97 09/05/23 10:29 62 97 09/05/23 10:24 55 L 97 09/05/23 10:23 60 109/70 09/05/23 10:19 50 L 97 09/05/23 10:14 54 L 96 09/05/23 10:09 61 97 09/05/23 10:07 54 L 105/66 09/05/23 10:04 50 L 98 09/05/23 09:59 52 L 97 09/05/23 09:54 50 L 97 09/05/23 09:53 54 L 111/85 09/05/23 09:49 54 L 97 09/05/23 09:44 61 97 09/05/23 09:39 54 L 97 09/05/23 09:36 54 L 119/68 09/05/23 09:34 62 97 09/05/23 09:29 80 98 09/05/23 09:24 81 98 09/05/23 09:23 57 L 109/68 09/05/23 09:19 65 98 09/05/23 09:14 60 97 09/05/23 09:09 71 98 09/05/23 09:07 60 112/74 09/05/23 09:04 58 L 97 09/05/23 08:59 55 L 97 09/05/23 08:54 55 L 97 09/05/23 08:51 58 L 101/61 09/05/23 08:49 63 98 09/05/23 08:44 58 L 96 09/05/23 08:39 55 L 97 09/05/23 08:37 56 L 09/05/23 08:37 102/57 L 09/05/23 08:37 60 104/57 L 09/05/23 08:34 57 L 97 09/05/23 08:30 16 09/05/23 08:30 36.7 C 16 09/05/23 08:29 70 99 09/05/23 08:24 50 L 96 09/05/23 08:23 48 L 99/56 L 09/05/23 08:19 54 L 96 09/05/23 08:14 49 L 98 09/05/23 08:12 53 L 94/55 L 09/05/23 08:09 54 L 97 (1) Uterine rupture Encounter type: initial encounter Qualified Code(s): S37.69XA - Other injury of uterus, initial encounter
[2023-09-05] MEDS ORDERED: PROPOFOL IV EMULSION 10 MG/ML 20 ML VIAL IV ONE (20:34)
[2023-09-05] MEDS ORDERED: ONDANSETRON INJ 2 MG/ML 2 ML VIAL ONE (20:34)
[2023-09-05] MEDS ORDERED: ROCURONIUM BROMIDE 10 MG/ML 5 ML VIAL IV ONE (20:34)
[2023-09-05] MEDS ORDERED: SUCCINYLCHOLINE CHLORIDE 20 MG/ML 10 ML VIAL IV ONE (20:34)
[2023-09-05] MEDS ORDERED: DEXAMETHASONE SOD INJ 4 MG/ML VIAL ONE (20:34)
[2023-09-05] MEDS ORDERED: ETOMIDATE 2 MG/ML 20 ML VIAL IV ONE (20:34)
[2023-09-05] MEDS ORDERED: OXYTOCIN 10 UNITS/ML VIAL ONE ×3 (20:39→20:44)
[2023-09-05] MEDS ORDERED: METHYLERGONOVINE MALEATE 0.2 MG/ML AMP ONE (20:45)
[2023-09-05] MEDS ORDERED: OXYTOCIN 10 UNITS/ML 10ML VIAL IM ONE (20:46)
[2023-09-05] MEDS ORDERED: PHENYLEPHRINE 100MCG/ML 10ML SYR IV ONE (20:48)
[2023-09-05] MEDS ORDERED: MoRPHine SULFATE PF 1 MG/ML 10 ML AMP/VIAL ONE (20:55)
[2023-09-05] MEDS ORDERED: FLOSEAL HEMOSTATIC MATRIX 10ML TOP ONE (20:59)
[2023-09-05] MEDS ORDERED: PRENATAL VITAMIN 1 TAB PO SCH (21:00)
[2023-09-05] MEDS ORDERED: DOCUSATE SODIUM 100 MG CAP PO SCH (21:00)
[2023-09-05] MEDS ORDERED: NON-FORMULARY MEDICATION (Iron,Carbonyl-Vitamin C [Vitron-C] 65 mg iron- 125 mg Tablet,Del PO SCH (21:00)
[2023-09-05] MEDS ORDERED: GLYCOPYRROLATE 0.2 MG/ML VIAL ONE (21:12)
[2023-09-05] MEDS ORDERED: NEOSTIGMINE METHYLSULFATE 1 MG/ML 10ML VIAL ONE (21:12)
[2023-09-05] MEDS ORDERED: PROMETHAZINE HCL 12.5 MG in SODIUM CHLORIDE 0.9% 50 ML IV PRN (21:26)
[2023-09-05] MEDS ORDERED: ONDANSETRON INJ 2 MG/ML 2 ML VIAL IV PRN (21:26)
[2023-09-05] MEDS ORDERED: MoRPHine SULFATE 2 MG/ML CARP IV PRN (21:26)
[2023-09-05] MEDS ORDERED: NALOXONE HCL 0.4 MG/1 ML VIAL/CARP IV PRN (21:26)
[2023-09-05] MEDS ORDERED: NALBUPHINE HCL 5 MG in SYRINGE 0 ML IV PRN (21:26)
[2023-09-05] MEDS ORDERED: LACTATED RINGER'S 500 ML IV PRN (21:26)
[2023-09-05] MEDS ORDERED: diphenhydrAMINE 50 MG/ML VIAL IV PRN (21:26)
[2023-09-05] MEDS ORDERED: MoRPHine SULFATE PF 1 MG/ML 10 ML AMP/VIAL EPI ONE (21:26)
[2023-09-05] MEDS ORDERED: ePHEDrine sulfate 50 MG/ML AMP IV PRN (21:26)
[2023-09-05] MEDS ORDERED: NALOXONE HCL 0.08 MG in SYRINGE 1.8 ML IV PRN (21:26)
[2023-09-05] MEDS ORDERED: NALOXONE HCL 1 MG in SODIUM CHLORIDE 0.9% 1,000 ML IV PRN (21:26)
[2023-09-05] MEDS ORDERED: DC INTRASPINAL MORPHINE SCH (21:30)
[2023-09-05] MEDS ORDERED: SODIUM CHLORIDE 0.9% 1,000 ML IV SCH (21:30)
[2023-09-05] MEDS ORDERED: NO NARCOTICS OR SEDATIVES SCH (21:30)
[2023-09-05] MEDS ORDERED: MAGNESIUM HYDROXIDE SUSP 30 ML UDC PO PRN (22:10)
[2023-09-05] MEDS ORDERED: SENNA 8.6 MG TAB PO PRN (22:10)
--- NOTE | 2023-09-05 22:13 | Post Operative Brief Note ---
Immediate Post Op Note v1 Date of Surgery September 05, 2023 Pre & Post Diagnosis Operation Date: 09/05/23 20:00 Pre-Op Diagnosis: Uterine Rupture Post-Op Diagnosis: Uterine dehiscence I identified the patient and participated in the time-out.: Yes Procedure Operation Date: 09/05/23 20:00 Actual Procedures p Exploratory Laparotomy, Repair of Uterine Dehiscence(Not Applicable) - Saulo Cueto MD Surgeon Mamadou Alonzo MD Cook Candy Dr. Cueto Estimated Blood Loss 500 Findings Consistent with Post-Op Diagnosis Uterine scar rupture with amniotic fluid in peritoneal cavity Fluids LR 2600 Specimens none Drains Sen Catheter Anesthesia Type General Complications none Disposition Accompanied Patient To Recovery: Yes Overlapping Procedure I was present for: the critical portions of procedure. I was immediately available: during the entire case. Back up surgeon: used during listed procedure.
[2023-09-05] MEDS ORDERED: OXYTOCIN 20 UNITS/LR 1,002 ML IV SCH (22:15)
--- NOTE | 2023-09-05 22:23 | Operative Report ---
Post Operative Report Pre & Post Diagnosis Operation Date: 09/05/23 20:00 Pre-Op Diagnosis: Uterine Rupture Post-Op Diagnosis: Uterine dehiscence I identified the patient and participated in the time-out.: Yes Procedure Operation Date: 09/05/23 20:00 Actual Procedures p Exploratory Laparotomy, Repair of Uterine Dehiscence(Not Applicable) - Saulo Cueto MD Surgeon Mamadou Alonzo MD Licensed Bondsman Dr. Cueto Estimated Blood Loss 500 Findings Consistent with Post-Op Diagnosis uterine rupture with amniotic fluid in peritoneal cavity Fluids LR 2600 ml. Specimens none Drains Sen 350 ml. clear urine Anesthesia Type General Complications none Disposition Accompanied Patient To Recovery: Yes Indications abdominal pain Description of Procedure Satisfactory general anesthesia the patient was prepped and draped in usual sterile fashion antibiotics were given preoperative timeout was called prior to the start of the procedure. The abdomen was entered through a prior Pfannenstiel scar entering in successive layers upon entering into the peritoneal cavity it should be noted that upon entering into the peritoneal cavity there was clear peritoneal white fluid consistent with palpable and the amniotic fluid there was no hemoperitoneum. The uterus was exteriorized on the left-hand side of the lower uterine segment there appeared to be a defect present scissors was then used to develop a vesicouterine peritoneum and on the left-hand side the appeared to be 3 to 4 cm defect consistent with a rupture there was a hematoma that had formed and clotted off the defect the uterine hysterotomy was opened up with scissors the cavity was inspected there was no other bleeding points Ring forceps were then placed on both angles and the inferior posterior margins of the lower uterine segment cervix was visualized was found to be intact the uterus was closed from the hysterotomy with 0 Vicryl suture in a continuous fashion followed by a second layer of suture for adequate hemostasis. The lower uterine segment was inspected Pitocin was given through the IV the uterus was firm and below the U the upper abdomen was inspected and copiously irrigated the bowel was examined and the appendix was visualized and found to be within normal limits. The uterus was then placed back into the normal anatomical position Floseal was then placed on the lower uterine scar no active bleeding was noted the initial sponge needle instrument count was found to be correct the fascia was then reapproximated using 0 Vicryl suture in a continuous fashion subcuticular space was irrigated no bleeding noted and then closed with 3-0 interrupted plain suture. Skin was then reapproximated with brenda Telfa and ABD dressing were then applied and an ice pack was applied to the labia. The final sponge needle instrument count was found to be correct the estimated blood loss was approximately 500 mL urine output 350 mL and total fluids 2600 mL. The patient was then placed supine on the stretcher she was taken to recovery room in stable condition I attest to the content of the Intraoperative Record and any orders documented therein. Any exceptions are noted below Please not that Dr. Cueto was needed at surgery to assist with opening the abdomen, closing the uterine defect and closing the abdomen..
[2023-09-05 23:20] LABS: Hematocrit (blood only) 26.6 % (37.0-47.0); Hemoglobin 8.9 g/dl (12.0-16.0)
--- NOTE | 2023-09-05 23:48 | Anesthesiology Progress Note ---
Date of Service September 05, 2023 Anesthesia Post Procedure Vital Signs Vital Signs: Temp Pulse Pulse Resp BP BP Pulse Ox 09/05/23 23:46 67 97 09/05/23 23:41 64 99 09/05/23 23:40 69 91/57 L 09/05/23 23:36 68 99 09/05/23 23:31 65 98 09/05/23 23:26 98 09/05/23 23:26 71 09/05/23 23:26 68 93/60 L 09/05/23 23:21 70 98 09/05/23 23:16 68 99 09/05/23 23:11 98 09/05/23 23:11 72 09/05/23 23:11 73 91/56 L 09/05/23 23:06 72 98 09/05/23 23:01 74 98 09/05/23 22:56 71 96 09/05/23 22:51 75 102/59 L 98 09/05/23 22:50 36.5 C 18 09/05/23 22:30 37.2 C 71 16 98/65 L 97 09/05/23 22:20 72 16 97/57 L 98 09/05/23 22:10 74 16 95/57 L 97 09/05/23 22:00 92 H 16 102/67 96 09/05/23 21:50 97 H 18 104/63 97 09/05/23 21:40 36.8 C 118 H 22 117/71 98 09/05/23 19:37 96 H 89 L 09/05/23 19:33 73 95 09/05/23 19:29 100 H 87 L 09/05/23 19:28 72 95 09/05/23 19:24 36.7 C 20 09/05/23 19:23 102 H 115/60 94 09/05/23 19:18 96 H 95 09/05/23 19:13 71 96 09/05/23 19:08 62 95 09/05/23 19:03 68 95 09/05/23 18:58 72 95 09/05/23 18:53 63 116/69 94 09/05/23 18:48 60 91 09/05/23 18:43 66 95 09/05/23 18:38 64 94 09/05/23 18:33 64 93 09/05/23 18:28 68 94 09/05/23 18:23 67 114/75 94 09/05/23 18:18 61 94 09/05/23 18:17 66 94 09/05/23 18:13 68 95 09/05/23 17:52 37.2 C 18 09/05/23 17:52 72 123/73 09/05/23 17:19 78 113/73 09/05/23 17:06 73 105/69 09/05/23 16:51 75 115/68 09/05/23 16:37 67 111/66 09/05/23 16:22 76 91/61 L 09/05/23 16:07 76 120/81 09/05/23 15:51 63 113/70 09/05/23 15:36 90 119/63 09/05/23 15:34 81 98 09/05/23 15:29 77 99 09/05/23 15:24 81 97 09/05/23 15:22 68 118/58 L 09/05/23 15:19 61 96 09/05/23 15:18 63 85 L 09/05/23 15:15 20 09/05/23 15:15 20 09/05/23 15:14 64 97 09/05/23 15:09 66 99 09/05/23 15:08 82 83 L 09/05/23 15:04 67 97 09/05/23 15:03 76 84 L 09/05/23 15:00 18 09/05/23 15:00 36.6 C 18 09/05/23 14:59 66 97 09/05/23 14:56 100 H 85 L 09/05/23 14:54 98 09/05/23 14:54 77 09/05/23 14:54 80 120/68 09/05/23 14:49 81 97 09/05/23 14:46 102 H 86 L 09/05/23 14:44 98 H 99 09/05/23 14:39 118 H 92 09/05/23 14:37 109 H 104/55 L 09/05/23 14:34 104 H 96 09/05/23 14:29 124 H 86 L 09/05/23 14:24 128 H 93 09/05/23 14:23 146 H 97/66 L 09/05/23 14:19 120 H 97 09/05/23 14:18 99 H 80 L 09/05/23 14:14 75 97 09/05/23 14:09 85 96 09/05/23 14:04 67 97 09/05/23 14:03 93 H 79 L 09/05/23 13:59 62 97 09/05/23 13:54 71 98 09/05/23 13:53 77 120/80 09/05/23 13:49 96 09/05/23 13:49 101 H 09/05/23 13:49 85 83 L 09/05/23 13:44 66 96 09/05/23 13:39 64 97 09/05/23 13:37 64 115/70 09/05/23 13:34 65 96 09/05/23 13:29 75 96 09/05/23 13:24 84 96 09/05/23 13:22 77 119/69 09/05/23 13:20 16 09/05/23 13:20 36.6 C 16 09/05/23 13:19 77 96 09/05/23 13:14 86 96 09/05/23 13:09 93 H 97 09/05/23 13:06 96 H 108/68 09/05/23 13:04 79 96 09/05/23 12:59 81 96 09/05/23 12:54 71 118/78 96 09/05/23 12:49 77 97 09/05/23 12:44 72 96 09/05/23 12:39 64 97 09/05/23 12:37 62 114/82 09/05/23 12:34 66 96 09/05/23 12:29 57 L 97 09/05/23 12:24 57 L 97 09/05/23 12:22 69 107/73 09/05/23 12:19 60 98 09/05/23 12:14 70 97 09/05/23 12:09 65 97 09/05/23 12:07 73 101/71 09/05/23 12:04 91 H 95 09/05/23 11:59 75 98 09/05/23 11:54 53 L 97 09/05/23 11:53 71 98/69 L 09/05/23 11:49 68 97 09/05/23 11:44 69 96 09/05/23 11:39 63 97 09/05/23 11:37 66 102/71 09/05/23 11:34 61 98 09/05/23 11:29 76 97 09/05/23 11:24 87 97 09/05/23 11:22 75 107/58 L 09/05/23 11:19 80 98 09/05/23 11:14 60 98 09/05/23 11:09 73 97 09/05/23 11:08 75 102/68 09/05/23 11:04 60 97 09/05/23 11:00 16 09/05/23 11:00 36.7 C 16 09/05/23 10:59 56 L 98 09/05/23 10:58 71 105/59 L 09/05/23 10:54 63 98 09/05/23 10:49 52 L 97 09/05/23 10:44 36.7 C 54 L 16 99 09/05/23 10:39 61 97 09/05/23 10:37 48 L 103/75 09/05/23 10:34 49 L 97 09/05/23 10:29 62 97 09/05/23 10:24 55 L 97 09/05/23 10:23 60 109/70 09/05/23 10:19 50 L 97 09/05/23 10:14 54 L 96 09/05/23 10:09 61 97 09/05/23 10:07 54 L 105/66 09/05/23 10:04 50 L 98 09/05/23 09:59 52 L 97 09/05/23 09:54 50 L 97 09/05/23 09:53 54 L 111/85 09/05/23 09:49 54 L 97 09/05/23 09:44 61 97 09/05/23 09:39 54 L 97 09/05/23 09:36 54 L 119/68 09/05/23 09:34 62 97 09/05/23 09:29 80 98 09/05/23 09:24 81 98 09/05/23 09:23 57 L 109/68 09/05/23 09:19 65 98 09/05/23 09:14 60 97 09/05/23 09:09 71 98 09/05/23 09:07 60 112/74 09/05/23 09:04 58 L 97 09/05/23 08:59 55 L 97 09/05/23 08:54 55 L 97 09/05/23 08:51 58 L 101/61 09/05/23 08:49 63 98 09/05/23 08:44 58 L 96 09/05/23 08:39 55 L 97 09/05/23 08:37 56 L 09/05/23 08:37 102/57 L 09/05/23 08:37 60 104/57 L 09/05/23 08:34 57 L 97 09/05/23 08:30 16 09/05/23 08:30 36.7 C 16 09/05/23 08:29 70 99 09/05/23 08:24 50 L 96 09/05/23 08:23 48 L 99/56 L 09/05/23 08:19 54 L 96 09/05/23 08:14 49 L 98 09/05/23 08:12 53 L 94/55 L 09/05/23 08:09 54 L 97 09/05/23 08:04 70 98 09/05/23 07:59 82 96 09/05/23 07:54 59 L 96 09/05/23 07:51 53 L 96/54 L 09/05/23 07:49 47 L 97 09/05/23 07:44 51 L 97 09/05/23 07:39 55 L 97 09/05/23 07:36 51 L 89/51 L 09/05/23 07:34 54 L 96 09/05/23 07:29 56 L 97 09/05/23 07:24 64 98 09/05/23 07:22 59 L 100/53 L 09/05/23 07:19 69 98 09/05/23 07:14 64 98 09/05/23 07:09 57 L 97 09/05/23 07:07 74 93/51 L 09/05/23 07:04 67 96 09/05/23 07:00 18 09/05/23 07:00 18 09/05/23 06:59 61 96 09/05/23 06:54 64 96 09/05/23 06:53 52 L 86/53 L 09/05/23 06:49 62 96 09/05/23 06:44 67 96 09/05/23 06:39 62 96 09/05/23 06:38 56 L 85/51 L 09/05/23 06:34 58 L 95 09/05/23 06:30 18 12/28/23 06:30 18 09/05/23 06:29 61 96 09/05/23 06:24 58 L 95 09/05/23 06:21 60 89/53 L 09/05/23 06:19 55 L 96 09/05/23 06:14 72 96 09/05/23 06:09 65 96 09/05/23 06:06 64 91/55 L 09/05/23 06:05 36.7 C 09/05/23 06:04 59 L 95 09/05/23 06:00 18 09/05/23 06:00 18 09/05/23 05:59 61 94 09/05/23 05:54 57 L 95 09/05/23 05:51 62 91/54 L 09/05/23 05:49 58 L 94 09/05/23 05:44 56 L 95 09/05/23 05:39 57 L 95 09/05/23 05:37 55 L 78/44 L 09/05/23 05:34 55 L 96 09/05/23 05:30 16 09/05/23 05:30 16 09/05/23 05:29 57 L 95 09/05/23 05:24 56 L 95 09/05/23 05:22 62 80/46 L 09/05/23 05:19 57 L 95 09/05/23 05:14 57 L 96 09/05/23 05:09 50 L 95 09/05/23 05:08 53 L 78/47 L 09/05/23 05:04 56 L 95 09/05/23 05:00 18 09/05/23 05:00 36.6 C 18 09/05/23 04:59 78 95 09/05/23 04:54 63 95 09/05/23 04:52 63 97/56 L 09/05/23 04:49 64 95 09/05/23 04:44 66 96 09/05/23 04:39 63 96 09/05/23 04:36 63 98/59 L 09/05/23 04:34 64 96 09/05/23 04:29 56 L 96 09/05/23 04:24 64 96 09/05/23 04:23 59 L 90/53 L 09/05/23 04:19 61 96 09/05/23 04:14 63 96 09/05/23 04:09 66 96 09/05/23 04:06 71 98/62 L 09/05/23 04:04 64 96 09/05/23 04:00 16 09/05/23 04:00 16 09/05/23 03:59 69 97 09/05/23 03:54 62 96 09/05/23 03:52 59 L 90/52 L 09/05/23 03:49 55 L 96 09/05/23 03:44 67 96 09/05/23 03:39 69 96 09/05/23 03:36 57 L 93/55 L 09/05/23 03:34 66 96 09/05/23 03:29 65 96 09/05/23 03:24 57 L 96 09/05/23 03:22 59 L 89/53 L 09/05/23 03:19 60 96 09/05/23 03:14 58 L 96 09/05/23 03:09 51 L 97 09/05/23 03:07 60 95/51 L 09/05/23 03:04 59 L 96 09/05/23 02:59 55 L 97 09/05/23 02:54 60 96 09/05/23 02:51 48 L 97/56 L 09/05/23 02:49 62 96 09/05/23 02:44 54 L 96 09/05/23 02:39 61 96 09/05/23 02:36 51 L 93/51 L 09/05/23 02:34 57 L 97 09/05/23 02:30 36.6 C 20 09/05/23 02:29 66 98 09/05/23 02:24 61 97 09/05/23 02:21 68 103/54 L 09/05/23 02:19 70 97 09/05/23 02:14 67 97 09/05/23 02:09 65 97 09/05/23 02:08 66 95/54 L 09/05/23 02:04 64 96 09/05/23 02:00 18 09/05/23 02:00 18 09/05/23 01:59 71 96 09/05/23 01:54 52 L 95 09/05/23 01:52 53 L 83/50 L 09/05/23 01:49 57 L 94 09/05/23 01:44 59 L 95 09/05/23 01:39 56 L 95 09/05/23 01:37 58 L 88/50 L 09/05/23 01:34 60 94 09/05/23 01:30 18 09/05/23 01:30 18 09/05/23 01:30 18 09/05/23 01:30 18 09/05/23 01:29 60 94 09/05/23 01:24 59 L 94 09/05/23 01:22 53 L 86/51 L 09/05/23 01:19 94 09/05/23 01:19 56 L 09/05/23 01:19 61 94 09/05/23 01:14 62 94 09/05/23 01:09 60 94 09/05/23 01:06 63 101/56 L 09/05/23 01:05 57 L 94 09/05/23 01:04 61 94 09/05/23 01:00 16 09/05/23 01:00 16 09/05/23 00:59 56 L 94 09/05/23 00:56 51 L 94 09/05/23 00:54 55 L 94 09/05/23 00:51 58 L 89/50 L 09/05/23 00:50 56 L 94 09/05/23 00:49 51 L 95 09/05/23 00:44 54 L 94 09/05/23 00:42 56 L 94 09/05/23 00:39 54 L 95 09/05/23 00:38 51 L 89/55 L 09/05/23 00:34 55 L 94 09/05/23 00:30 56 L 18 94 09/05/23 00:29 57 L 95 09/05/23 00:24 54 L 96 09/05/23 00:23 56 L 89/50 L 09/05/23 00:19 52 L 98 09/05/23 00:15 18 09/05/23 00:15 18 09/05/23 00:14 52 L 98 09/05/23 00:09 57 L 98 09/05/23 00:06 70 111/57 L 09/05/23 00:04 61 98 09/05/23 00:00 73 18 109/57 L 09/04/23 23:59 97 09/04/23 23:59 58 L 09/04/23 23:54 97 09/04/23 23:54 64 09/04/23 23:54 56 L 09/04/23 23:54 99/57 L 09/04/23 23:49 98 09/04/23 23:49 61 O2 Del Method O2 Flow Rate 09/05/23 23:46 09/05/23 23:41 09/05/23 23:40 09/05/23 23:36 09/05/23 23:31 09/05/23 23:26 09/05/23 23:26 09/05/23 23:26 09/05/23 23:21 09/05/23 23:16 09/05/23 23:11 09/05/23 23:11 09/05/23 23:11 09/05/23 23:06 09/05/23 23:01 09/05/23 22:56 09/05/23 22:51 09/05/23 22:50 09/05/23 22:30 Nasal Cannula 2 09/05/23 22:20 Nasal Cannula 2 09/05/23 22:10 Nasal Cannula 2 09/05/23 22:00 Nasal Cannula 2 09/05/23 21:50 Nasal Cannula 2 09/05/23 21:40 Oxymask 5 09/05/23 19:37 09/05/23 19:33 09/05/23 19:29 09/05/23 19:28 09/05/23 19:24 09/05/23 19:23 09/05/23 19:18 09/05/23 19:13 09/05/23 19:08 09/05/23 19:03 09/05/23 18:58 09/05/23 18:53 09/05/23 18:48 09/05/23 18:43 09/05/23 18:38 09/05/23 18:33 09/05/23 18:28 09/05/23 18:23 09/05/23 18:18 09/05/23 18:17 09/05/23 18:13 09/05/23 17:52 09/05/23 17:52 09/05/23 17:19 09/05/23 17:06 09/05/23 16:51 09/05/23 16:37 09/05/23 16:22 09/05/23 16:07 09/05/23 15:51 09/05/23 15:36 09/05/23 15:34 09/05/23 15:29 09/05/23 15:24 09/05/23 15:22 09/05/23 15:19 09/05/23 15:18 09/05/23 15:15 09/05/23 15:15 09/05/23 15:14 09/05/23 15:09 09/05/23 15:08 09/05/23 15:04 09/05/23 15:03 09/05/23 15:00 09/05/23 15:00 09/05/23 14:59 09/05/23 14:56 09/05/23 14:54 09/05/23 14:54 09/05/23 14:54 09/05/23 14:49 09/05/23 14:46 09/05/23 14:44 09/05/23 14:39 09/05/23 14:37 09/05/23 14:34 09/05/23 14:29 09/05/23 14:24 09/05/23 14:23 09/05/23 14:19 09/05/23 14:18 09/05/23 14:14 09/05/23 14:09 09/05/23 14:04 09/05/23 14:03 09/05/23 13:59 09/05/23 13:54 09/05/23 13:53 09/05/23 13:49 09/05/23 13:49 09/05/23 13:49 09/05/23 13:44 09/05/23 13:39 09/05/23 13:37 09/05/23 13:34 09/05/23 13:29 09/05/23 13:24 09/05/23 13:22 09/05/23 13:20 09/05/23 13:20 09/05/23 13:19 09/05/23 13:14 09/05/23 13:09 09/05/23 13:06 09/05/23 13:04 09/05/23 12:59 09/05/23 12:54 09/05/23 12:49 09/05/23 12:44 09/05/23 12:39 09/05/23 12:37 09/05/23 12:34 09/05/23 12:29 09/05/23 12:24 09/05/23 12:22 09/05/23 12:19 09/05/23 12:14 09/05/23 12:09 09/05/23 12:07 09/05/23 12:04 09/05/23 11:59 09/05/23 11:54 09/05/23 11:53 09/05/23 11:49 09/05/23 11:44 09/05/23 11:39 09/05/23 11:37 09/05/23 11:34 09/05/23 11:29 09/05/23 11:24 09/05/23 11:22 09/05/23 11:19 09/05/23 11:14 09/05/23 11:09 09/05/23 11:08 09/05/23 11:04 09/05/23 11:00 09/05/23 11:00 09/05/23 10:59 09/05/23 10:58 09/05/23 10:54 09/05/23 10:49 09/05/23 10:44 09/05/23 10:39 09/05/23 10:37 09/05/23 10:34 09/05/23 10:29 09/05/23 10:24 09/05/23 10:23 09/05/23 10:19 09/05/23 10:14 09/05/23 10:09 09/05/23 10:07 09/05/23 10:04 09/05/23 09:59 09/05/23 09:54 09/05/23 09:53 09/05/23 09:49 09/05/23 09:44 09/05/23 09:39 09/05/23 09:36 09/05/23 09:34 09/05/23 09:29 09/05/23 09:24 09/05/23 09:23 09/05/23 09:19 09/05/23 09:14 09/05/23 09:09 09/05/23 09:07 09/05/23 09:04 09/05/23 08:59 09/05/23 08:54 09/05/23 08:51 09/05/23 08:49 09/05/23 08:44 09/05/23 08:39 09/05/23 08:37 09/05/23 08:37 09/05/23 08:37 09/05/23 08:34 09/05/23 08:30 09/05/23 08:30 09/05/23 08:29 09/05/23 08:24 09/05/23 08:23 09/05/23 08:19 09/05/23 08:14 09/05/23 08:12 09/05/23 08:09 09/05/23 08:04 09/05/23 07:59 09/05/23 07:54 09/05/23 07:51 09/05/23 07:49 09/05/23 07:44 09/05/23 07:39 09/05/23 07:36 09/05/23 07:34 09/05/23 07:29 09/05/23 07:24 09/05/23 07:22 09/05/23 07:19 09/05/23 07:14 09/05/23 07:09 09/05/23 07:07 09/05/23 07:04 09/05/23 07:00 09/05/23 07:00 09/05/23 06:59 09/05/23 06:54 09/05/23 06:53 09/05/23 06:49 09/05/23 06:44 09/05/23 06:39 09/05/23 06:38 09/05/23 06:34 09/05/23 06:30 09/05/23 06:30 09/05/23 06:29 09/05/23 06:24 09/05/23 06:21 09/05/23 06:19 09/05/23 06:14 09/05/23 06:09 09/05/23 06:06 09/05/23 06:05 09/05/23 06:04 09/05/23 06:00 09/05/23 06:00 09/05/23 05:59 09/05/23 05:54 09/05/23 05:51 09/05/23 05:49 09/05/23 05:44 09/05/23 05:39 09/05/23 05:37 09/05/23 05:34 09/05/23 05:30 09/05/23 05:30 09/05/23 05:29 09/05/23 05:24 09/05/23 05:22 09/05/23 05:19 09/05/23 05:14 09/05/23 05:09 09/05/23 05:08 09/05/23 05:04 09/05/23 05:00 09/05/23 05:00 09/05/23 04:59 09/05/23 04:54 09/05/23 04:52 09/05/23 04:49 09/05/23 04:44 09/05/23 04:39 09/05/23 04:36 09/05/23 04:34 09/05/23 04:29 09/05/23 04:24 09/05/23 04:23 09/05/23 04:19 09/05/23 04:14 09/05/23 04:09 09/05/23 04:06 09/05/23 04:04 09/05/23 04:00 09/05/23 04:00 09/05/23 03:59 09/05/23 03:54 09/05/23 03:52 09/05/23 03:49 09/05/23 03:44 09/05/23 03:39 09/05/23 03:36 09/05/23 03:34 09/05/23 03:29 09/05/23 03:24 09/05/23 03:22 09/05/23 03:19 09/05/23 03:14 09/05/23 03:09 09/05/23 03:07 09/05/23 03:04 09/05/23 02:59 09/05/23 02:54 09/05/23 02:51 09/05/23 02:49 09/05/23 02:44 09/05/23 02:39 09/05/23 02:36 09/05/23 02:34 09/05/23 02:30 09/05/23 02:29 09/05/23 02:24 09/05/23 02:21 09/05/23 02:19 09/05/23 02:14 09/05/23 02:09 09/05/23 02:08 09/05/23 02:04 09/05/23 02:00 09/05/23 02:00 09/05/23 01:59 09/05/23 01:54 09/05/23 01:52 09/05/23 01:49 09/05/23 01:44 09/05/23 01:39 09/05/23 01:37 09/05/23 01:34 09/05/23 01:30 09/05/23 01:30 09/05/23 01:30 09/05/23 01:30 09/05/23 01:29 09/05/23 01:24 09/05/23 01:22 09/05/23 01:19 09/05/23 01:19 09/05/23 01:19 09/05/23 01:14 09/05/23 01:09 09/05/23 01:06 09/05/23 01:05 09/05/23 01:04 09/05/23 01:00 09/05/23 01:00 09/05/23 00:59 09/05/23 00:56 09/05/23 00:54 09/05/23 00:51 09/05/23 00:50 09/05/23 00:49 09/05/23 00:44 09/05/23 00:42 09/05/23 00:39 09/05/23 00:38 09/05/23 00:34 09/05/23 00:30 09/05/23 00:29 09/05/23 00:24 09/05/23 00:23 09/05/23 00:19 09/05/23 00:15 09/05/23 00:15 09/05/23 00:14 09/05/23 00:09 09/05/23 00:06 09/05/23 00:04 09/05/23 00:00 09/04/23 23:59 09/04/23 23:59 09/04/23 23:54 09/04/23 23:54 09/04/23 23:54 09/04/23 23:54 09/04/23 23:49 09/04/23 23:49 Pain Intensity Bilateral Lower Abdomen: Pain Intensity: 6 Transfer of Care Handoff Completed per policy Notes Mental Status: alert / awake / arousable Patient Amnestic to Procedure: Yes Nausea / Vomiting: adequately controlled Pain: adequately controlled Airway Patency, RR, SpO2: stable & adequate BP & HR: stable & adequate Hydration State: stable & adequate Anesthetic Complications: no major complications apparent
--- NOTE | 2023-09-06 01:32 | Anesthesia Procedure Note ---
Date of Service September 06, 2023 Anesthesia Post Epidural Note Vital Signs Vital Signs: Temp Pulse Resp BP Pulse Ox O2 Del Method O2 Flow Rate 36.4 C L 81 16 90/50 L 97 Nasal Cannula 2 09/05/23 23:50 09/06/23 01:26 09/05/23 23:50 09/06/23 00:59 09/06/23 01:26 09/05/23 22:30 09/05/23 22:30 Pain Intensity Bilateral Lower Abdomen: Pain Intensity: 2 Notes Mental Status: alert / awake / arousable and participated in evaluation Nausea / Vomiting: adequately controlled Pain: adequately controlled Airway Patency, RR, SpO2: stable & adequate BP & HR: stable & adequate Hydration State: stable & adequate Neuraxial Anesthesia: was administered and sensory block is resolving Anesthetic Complications: no major complications apparent Epidural: Removed without complications and With tip intact
[2023-09-06 06:16] LABS: Hematocrit (blood only) 22.7 % (37.0-47.0); Hemoglobin 7.6 g/dl (12.0-16.0); Mean Corpuscular Hemoglobin 31.8 pg (25.0-34.0); Mean Corpuscular Hgb Conc 33.5 g/dL (32.0-36.0); Mean Platelet Volume 10.3 fL (9.4-12.4); Platelet Count 149 K/uL (130-400); RDW Coefficient of Variation 12.6 % (11.5-14.5); RDW Standard Deviation 43.5 fL (36.4-46.3); Red Blood Count 2.39 M/uL (4.20-5.40); White Blood Count 17.32 K/ul (4.8-10.8)
[2023-09-06 06:17] LABS: Basophils # (auto) 0.03 K/uL (0.00-0.20); Basophils % (auto) 0.2 %; Echinocytes 1+; Eosinophils # (auto) 0.02 K/uL (0.00-0.50); Eosinophils % (auto) 0.1 %; Immature Granulocytes # (auto) 0.11 K/uL (0.01-0.20); Immature Granulocytes % (auto) 0.6 %; Lymphocytes # (auto) 0.86 K/uL (1.20-3.40); Monocytes # (auto) 0.69 K/uL (0.11-0.59); Neutrophils # (auto) 15.61 K/uL (1.40-6.50); Neutrophils % (auto) 90.1 %; Polychromasia 1+
[2023-09-06] MEDS ORDERED: FERROUS SULFATE 325 MG TAB PO SCH ×2 (08:00)
[2023-09-06] MEDS ORDERED: PRENATAL VITAMIN 1 TAB PO SCH (08:00)
[2023-09-06] MEDS ORDERED: SODIUM CHLORIDE 0.9% 250 ML IV PRN (09:34)
[2023-09-06] MEDS: DOCUSATE SODIUM 100 MG CAP PO SCH ×2 (10:19→20:30)
[2023-09-06] MEDS: PRENATAL VITAMIN 1 TAB PO SCH (10:19)
[2023-09-06] MEDS: SIMETHICONE 80 MG CHEW PO SCH ×4 (10:19→20:30)
[2023-09-06] MEDS ORDERED: KETOROLAC 30 MG/ML VIAL IV PRN ×2 (11:55→15:26)
[2023-09-06] MEDS ORDERED: diphenhydrAMINE Capsule 25 MG CAP PO PRN (15:26)
[2023-09-06] MEDS ORDERED: diphenhydrAMINE 50 MG/ML VIAL IV PRN (15:26)
[2023-09-06] MEDS ORDERED: PROMETHAZINE HCL 25 MG in SODIUM CHLORIDE 0.9% 50 ML IV PRN (15:26)
[2023-09-06] MEDS ORDERED: ONDANSETRON INJ 2 MG/ML 2 ML VIAL IV PRN (15:26)
[2023-09-06] MEDS: IBUPROFEN 600 MG TAB PO PRN ×2 (17:44→22:30)
[2023-09-06 17:55] LABS: Basophils # (auto) 0.02 K/uL (0.00-0.20); Basophils % (auto) 0.1 %; Eosinophils # (auto) 0.02 K/uL (0.00-0.50); Eosinophils % (auto) 0.1 %; Hematocrit (blood only) 26.4 % (37.0-47.0); Immature Granulocytes # (auto) 0.08 K/uL (0.01-0.20); Immature Granulocytes % (auto) 0.5 %; Lymphocytes # (auto) 1.47 K/uL (1.20-3.40); Lymphocytes % (auto) 9.8 %; Mean Corpuscular Hemoglobin 30.9 pg (25.0-34.0); Mean Corpuscular Hgb Conc 34.1 g/dL (32.0-36.0); Mean Corpuscular Volume 90.7 fL (80.0-100.0); Mean Platelet Volume 10.5 fL (9.4-12.4); Monocytes # (auto) 0.86 K/uL (0.11-0.59); Monocytes % (auto) 5.7 %; Neutrophils # (auto) 12.58 K/uL (1.40-6.50); Neutrophils % (auto) 83.8 %; Platelet Count 151 K/uL (130-400); RDW Coefficient of Variation 14.6 % (11.5-14.5); RDW Standard Deviation 47.9 fL (36.4-46.3); Red Blood Count 2.91 M/uL (4.20-5.40); White Blood Count 15.03 K/ul (4.8-10.8)
[2023-09-06] MEDS: oxyCODONE/ACETAMINOPHEN 5mg/325mg TAB PO PRN ×2 (18:28→22:30)
[2023-09-06] MEDS ORDERED: bisacodyL 5 MG TABEC PO SCH ×2 (20:00)
--- NOTE | 2023-09-06 21:40 | Obstetrical Progress Note ---
Date of Service September 06, 2023 Assessment & Plan (1) Hx of section: POD #1 s/p with uterine dehiscence Pt doing well Received 1 unit PRBC Ambulating and tolerating p food an Meds Continue post op care (2) Dehiscence of uterine wound: Results & Data Vital Signs (Past 12 Hours) Vital Signs Temp Pulse Resp BP Pulse Ox 09/06/23 15:45 36.8 C 92 H 18 97/59 L 96 09/06/23 13:35 37 C 81 18 95/56 L 96 09/06/23 13:15 37 C 86 18 98/63 L 97 09/06/23 12:15 36.7 C 88 18 94/58 L 97 09/06/23 11:51 87 18 89/54 L 09/06/23 11:51 96 09/06/23 11:51 89 09/06/23 11:51 87 89/54 L 09/06/23 11:46 82 97 09/06/23 11:41 84 97 09/06/23 11:39 83 18 90/57 L 09/06/23 11:39 83 90/57 L 09/06/23 11:36 85 97 09/06/23 11:31 74 96 09/06/23 11:28 76 18 83/53 L 09/06/23 11:28 76 83/53 L 09/06/23 11:26 80 95 09/06/23 11:24 72 18 85/50 L 09/06/23 11:24 36.7 C 18 09/06/23 11:24 72 85/50 L 09/06/23 11:21 78 95 09/06/23 11:18 91 H 18 92/52 L 09/06/23 11:18 91 H 92/52 L 09/06/23 11:16 88 95 09/06/23 11:15 37.4 C 18 09/06/23 11:12 84 89/52 L 09/06/23 11:12 84 89/52 L 09/06/23 11:11 93 H 193/140 H 96 09/06/23 11:06 90 96 09/06/23 11:01 102 H 95 09/06/23 10:56 86 95 09/06/23 10:55 36.8 C 15 09/06/23 10:53 82 90/55 L 09/06/23 10:52 36.7 C 84 18 90/55 L 09/06/23 10:52 36.8 C 18 90/55 L 09/06/23 10:52 36.8 C 84 18 90/55 L 96 09/06/23 10:51 87 96 09/06/23 10:46 82 95 09/06/23 10:41 91 H 95 09/06/23 10:36 93 H 94 09/06/23 10:31 105 H 96 09/06/23 10:26 94 H 94 09/06/23 10:21 114 H 95 09/06/23 10:16 101 H 96 09/06/23 10:11 90 94 09/06/23 10:06 95 H 95 09/06/23 10:01 84 93 09/06/23 09:56 102 H 95 09/06/23 09:51 89 95 09/06/23 09:46 104 H 96 09/06/23 09:41 101 H 95
[2023-09-06] MEDS ORDERED: IRON SUCROSE 200 MG in 0.9 % SODIUM CHLORIDE 100 ML IV ONE (22:00)
[2023-09-07] MEDS ORDERED: bisacodyL 10 MG SUPP PR PRN
[2023-09-07 07:45] LABS: Hematocrit (blood only) 23.7 % (37.0-47.0); Hemoglobin 7.8 g/dl (12.0-16.0)
--- NOTE | 2023-09-07 08:14 | Obstetrical Progress Note ---
Date of Service September 07, 2023 Assessment & Plan (1) Hx of section: POD #2 s/p with uterine dehiscence Pt doing well Received 1 unit PRBC Ambulating and tolerating p food an Meds Continue post op care Anticipate d/c home tomorrow if doing well (2) Dehiscence of uterine wound: Counseled at bedside that due to urine dehiscence, would not recommend another trial of labor with her previous , patient should not go to labor index pregnancies. Patient currently has no desire for future pregnancies Subjective Ambulation: ambulating normally Voiding: no voiding problems Passing Gas:: Yes Diet Tolerance:: regular diet Lochia:: Small Feeding Type:: bottle feeding Current Pain Level(1-10): 0 Patient is doing well at this time, bonding with baby. Baby currently has a sitter tongue-tie per patient which will be fixed. Was attempting to breast- feed but currently having to supplement with formula until tongue-tie is released. Is planning to exclusively breast-feed if possible Pain has been very well-controlled and she has been ambulating without any issues. Notes some swelling in her feet and legs Physical Exam Constitutional WD/WN, vitals as above Respiratory normal respiratory effort, lungs clear to auscultation Cardiovascular RRR, no murmur, no edema Gastrointestinal (Abdomen) normal bowel sounds, soft, nontender, no hepatosplenomegaly Incision: Covered with bandage and clean and dry, no tenderness to palpation Lymphatic 2+ pitting edema on feet Results & Data Vital Signs (Past 12 Hours) Vital Signs Temp Pulse Resp BP Pulse Ox O2 Del Method 09/06/23 23:05 36.6 C 83 18 95/60 L 98 Room Air 09/06/23 22:48 36.6 C 87 18 98/61 L 94 Room Air 09/06/23 20:45 Room Air 09/06/23 20:45 36.8 C 96 H 18 93/55 L 98 Room Air
[2023-09-07] MEDS: PRENATAL VITAMIN 1 TAB PO SCH (08:27)
[2023-09-07] MEDS: FERROUS SULFATE 325 MG TAB PO SCH (08:27)
[2023-09-07] MEDS: IBUPROFEN 600 MG TAB PO PRN ×2 (08:27→16:39)
[2023-09-07] MEDS: DOCUSATE SODIUM 100 MG CAP PO SCH ×2 (08:27→19:54)
[2023-09-07] MEDS: oxyCODONE/ACETAMINOPHEN 5mg/325mg TAB PO PRN ×2 (08:28→16:38)
[2023-09-07] MEDS: SIMETHICONE 80 MG CHEW PO SCH ×4 (08:30→19:53)
[2023-09-08] MEDS: IBUPROFEN 600 MG TAB PO PRN ×3 (01:05→12:17)
[2023-09-08] MEDS: oxyCODONE/ACETAMINOPHEN 5mg/325mg TAB PO PRN ×3 (01:06→12:17)
--- NOTE | 2023-09-08 07:06 | Obstetrical Progress Note ---
Date of Service September 08, 2023 Assessment & Plan (1) Hx of section: POD #3 s/p with uterine dehiscence Pt doing well Received 1 unit PRBC Ambulating and tolerating p food an Meds Continue post op care d/c home today with instructions Stable removal in 5-7 days (2) Dehiscence of uterine wound: Counseled at bedside that due to urine dehiscence, would not recommend another trial of labor with her previous , patient should not go to labor index pregnancies. Patient currently has no desire for future pregnancies Subjective Ambulation: ambulating normally Voiding: no voiding problems Passing Gas:: Yes Diet Tolerance:: regular diet Feeding Type:: breast feeding Doing well would like to be discharged home today, feels more sore than she did yesterday Physical Exam Constitutional WD/WN, vitals as above Respiratory normal respiratory effort, lungs clear to auscultation Cardiovascular RRR, no murmur, no edema Gastrointestinal (Abdomen) normal bowel sounds, soft, nontender, no hepatosplenomegaly Results & Data Vital Signs (Past 12 Hours) Vital Signs Temp Pulse Resp BP Pulse Ox O2 Del Method 09/07/23 23:29 36.9 C 85 18 107/69 95 Room Air 09/07/23 20:00 Room Air 09/07/23 20:00 36.7 C 90 20 119/73 95 Room Air
[2023-09-08] MEDS: SIMETHICONE 80 MG CHEW PO SCH ×2 (08:26→12:16)
[2023-09-08] MEDS: DOCUSATE SODIUM 100 MG CAP PO SCH (08:27)
[2023-09-08] MEDS: FERROUS SULFATE 325 MG TAB PO SCH (08:27)
[2023-09-08] MEDS: PRENATAL VITAMIN 1 TAB PO SCH (08:27)
--- NOTE | 2023-09-11 15:55 | Discharge Summary ---
Date of Service September 11, 2023 Admission HPI Per Admitting Provider 28 F [id number] s/o developed pain in right shoulder with pain on deep inspiration. CT scan of chest obtained to r/o PE was negative. CT of abdomen pelvis shows uterine rupture. Discharge Data Consultations 09/05/23 19:27 Consult Anesthesiology Stat Procedures Performed Operation Date: 09/05/23 20:00 Actual Procedures p Exploratory Laparotomy, Repair of Uterine Dehiscence(Not Applicable) - Saulo Cueto MD Hospital Course (1) Dehiscence of uterine wound: (2) Uterine rupture: Plan patient underwent exploratory laparotomy and uterine dehiscdence of hysterotomy scar was repaired.
== END 2023-09-08 12:35 | disposition home or self-care (01) | DRG 768 ==
LOC: 4S1 07:46 → 4E2 09-06 12:00